=== PATIENT | female | born 1975 | race Caucasian/White ===

== ENCOUNTER 2020-07-25 14:57 | Outpatient (REF) | payer OTHER, SELFPAY ==
--- NOTE | 2020-07-25 | MM_ITS ---
EXAMINATION: MM DIAGNOSTIC DIGITAL BREAST TOMOSYNTHESIS, BILATERAL CLINICAL INFORMATION: Short interval six-month follow-up probable bilateral benign fibronodular and fibrocystic changes initially noted at baseline exam. The lifetime risk of breast cancer based on the Tyrer-Cuzick Model is 11%. COMPARISON: Mammography: 01/21/2020 (baseline, BI-RADS 0), bilateral targeted breast ultrasound 01/25/2020 TECHNIQUE: Digital breast tomosynthesis is performed in both the craniocaudal and mediolateral oblique views along with computer-aided detection (CAD). Synthesized 2D images are generated from the tomosynthesis. FINDINGS: There are scattered areas of fibroglandular density (ACR BI-RADS breast composition Category b). Breast tissue composition borders on heterogeneously dense. There is multinodular parenchymal pattern with scattered nodular asymmetries similar to prior baseline exam. There is no developing density or architectural abnormality or interval suspicious change. No abnormal calcifications. Bilateral breasts will be reassessed again at time of annual bilateral mammography, due in 6 months. Results are provided to the patient at time of visit by the technologist. MM/MM tomosynthesis diagnostic BI IMPRESSION: No significant changes from baseline exam. ASSESSMENT: BI-RADS 3: Probably Benign RECOMMENDATION: Diagnostic mammography at time of annual bilateral exam, due in 6 months. This patient's information was entered into a reminder system with a target due date for their next mammogram.
== END 2020-07-25 14:58 | disposition home or self-care (01) ==
LOC: HO.MAMMO 14:57
PROVIDERS: PCP Internal Medicine; Visit Provider Internal Medicine
DX: R92.2 Inconclusive mammogram (principal)
CPT/HCPCS: 77062; 77066

== ENCOUNTER 2020-08-04 11:27 | Outpatient (REF) | payer OTHER, SELFPAY | END 2020-08-04 11:28 | disposition home or self-care (01) | LOC: HO.LAB 11:27 | PROVIDERS: Visit Provider Nurse Practitioner Family | DX: R11.0 Nausea (principal); Z20.822 Contact with and (suspected) exposure to COVID-19 | CPT/HCPCS: 36415; U0003; U0005 ==

== ENCOUNTER 2020-08-11 15:01 | Outpatient (REF) | payer OTHER, SELFPAY ==
[2020-08-11 16:20] LABS: MANUAL DIFF FLAG NO
[2020-08-11 16:27] LABS: Basophils Absolute Auto 0.1 X10*3/uL (0.0-0.2); Basophils Percent Auto 0.9 % (0-2); Eosinophils Percent Auto 0.2 % (0-4); Hematocrit 42.8 % (37-47); Hemoglobin 14.1 g/dl (12.0-16.0); Imm Gran Abs Auto 0.03 X10*3/uL (0.00-0.03); Imm Gran Pct Auto 0.4 % (0.0-0.4); Lymphocytes Absolute Auto 2.1 X10*3/uL (1.2-4.9); Lymphocytes Percent Auto 24.3 % (20-40); Mean Corpuscular HGB Conc 32.9 g/dl (31.0-35.0); Mean Corpuscular Hemoglobin 29.6 pg (27.0-33.0); Mean Corpuscular Volume 89.7 fL (80-98); Mean Platelet Volume 9.8 fL (9.4-12.3); Monocytes Absolute Auto 0.4 X10*3/uL (0.1-1.2); Monocytes Percent Auto 4.2 % (2-11); Platelet Count 335 X10*3/uL (160-400); Red Blood Count 4.77 X10*6/uL (4.20-5.50); White Blood Count 8.6 X10*3/uL (4.8-10.8)
[2020-08-11 16:45] LABS: Alanine Aminotransferase 19 U/L (0-31); Albumin Level 4.4 g/dL (3.5-5.0); Alkaline Phosphatase 58 U/L (39-117); Anion Gap 13 (12-20); Aspartate Amino Transferase 16 U/L (5-31); Bilirubin Total 0.2 mg/dL (0.0-1.0); Blood Urea Nitrogen 10 mg/dL (9-16); Carbon Dioxide 23 mmol/L (22-29); Chloride 107 mmol/L (96-108); Estimated Glomerular Filt Rate > 60; Glucose Random 104 mg/dL (60-115); Potassium 4.3 mmol/L (3.3-5.1); Sodium 139 mmol/L (135-145); Total Protein 7.2 g/dL (6.5-8.0)
== END 2020-08-11 15:02 | disposition home or self-care (01) ==
LOC: HO.HMGCLDS 15:01
PROVIDERS: PCP Internal Medicine; Visit Provider Nurse Practitioner Family
DX: R11.0 Nausea (principal)
CPT/HCPCS: 36415; 80053; 85025

== ENCOUNTER 2021-01-26 13:20 | Outpatient (REF) | payer OTHER, SELFPAY ==
--- NOTE | ~2021-01-26 | MM_ITS ---
EXAMINATION: MM DIAGNOSTIC DIGITAL BREAST TOMOSYNTHESIS, BILATERAL CLINICAL INFORMATION: Probable benign fibronodular and fibrocystic changes initially noted at baseline exam. Due for yearly. The lifetime risk of breast cancer based on the Tyrer-Cuzick Model is 11%. COMPARISON: Mammography: 07/25/2020, 01/21/2020 (baseline); bilateral diagnostic breast ultrasound 01/25/2020. TECHNIQUE: Digital breast tomosynthesis is performed in both the craniocaudal and mediolateral oblique views along with computer-aided detection (CAD). Synthesized 2D images are generated from the tomosynthesis. FINDINGS: There are scattered areas of fibroglandular density (ACR BI-RADS breast composition Category b). Parenchymal pattern is similar to prior studies. There are scattered bilateral round smooth nodules again seen, largest left 12:00 position corresponding to a simple cyst on targeted ultrasound. Other nodularity left breast is stable. Nodularity right breast is stable to decreased. Neither breast shows new dominant nodule or architectural abnormality or developing density. There are no abnormal calcifications. The axilla and skin contours are unremarkable. Results are provided to the patient at time of visit by the technologist. MM/MM tomosynthesis diagnostic BI IMPRESSION: There are no significant changes from prior exams. ASSESSMENT: BI-RADS 2: Benign RECOMMENDATION: Routine annual mammography screening. This patient's information was entered into a reminder system with a target due date for their next mammogram.
== END 2021-01-26 13:21 | disposition home or self-care (01) ==
LOC: HO.MAMMO 13:20
PROVIDERS: Visit Provider Internal Medicine
DX: R92.2 Inconclusive mammogram (principal)
CPT/HCPCS: 77062; 77066

== ENCOUNTER 2021-07-10 10:42 | Outpatient (REF) | payer OTHER, SELFPAY ==
[2021-07-10 12:19] LABS: Alanine Aminotransferase 27 U/L (0-31); Anion Gap 13 (12-20); Aspartate Amino Transferase 19 U/L (5-31); Blood Urea Nitrogen 14 mg/dL (9-16); Calcium 9.5 mg/dL (8.4-10.2); Carbon Dioxide 21 mmol/L (22-29); Chloride 109 mmol/L (96-108); Cholesterol 281 mg/dL; Estimated Glomerular Filt Rate > 60; Glucose Fasting 112 mg/dL (60-99); HDL Cholesterol 33 mg/dL; LDL Cholesterol Calculated 205 mg/dl; Potassium 3.9 mmol/L (3.3-5.1); Sodium 139 mmol/L (135-145); Triglycerides 215 mg/dL
== END 2021-07-10 10:43 | disposition home or self-care (01) ==
LOC: HO.HMGCLDS 10:42
PROVIDERS: PCP Internal Medicine; Visit Provider Internal Medicine
DX: Z00.01 Encounter for general adult medical examination with abnormal findings (principal); I10 Essential (primary) hypertension
CPT/HCPCS: 36415; 80048; 80061; 84450; 84460

== ENCOUNTER → 2021-09-26 15:02 | Outpatient (BNVA) | payer OTHER, SELFPAY | PROVIDERS: PCP Internal Medicine; Visit Provider Nurse Practitioner Family | DX: Z13.89 Encounter for screening for other disorder (principal) ==

== ENCOUNTER 2021-10-13 08:52 | Outpatient (REF) | payer OTHER, SELFPAY ==
[2021-10-13 11:43] LABS: Alanine Aminotransferase 35 U/L (0-31); Anion Gap 15 (12-20); Aspartate Amino Transferase 30 U/L (5-31); Blood Urea Nitrogen 9 mg/dL (9-16); Calcium 9.1 mg/dL (8.4-10.2); Carbon Dioxide 22 mmol/L (22-29); Chloride 105 mmol/L (96-108); Cholesterol 277 mg/dL; Estimated Glomerular Filt Rate > 60; Glucose Fasting 145 mg/dL (60-99); HDL Cholesterol 33 mg/dL; LDL Cholesterol Calculated 194 mg/dl; Potassium 3.7 mmol/L (3.3-5.1); Sodium 138 mmol/L (135-145); Triglycerides 253 mg/dL
[2021-10-13 11:49] LABS: TSH reflex Free T4 1.07 uIU/mL (0.32-4.0); Vitamin D 25-OH Total 11.1 ng/mL (>30)
== END 2021-10-13 08:53 | disposition home or self-care (01) ==
LOC: HO.HMGCLDS 08:52
PROVIDERS: Visit Provider Internal Medicine
DX: F51.04 Psychophysiologic insomnia (principal); R73.01 Impaired fasting glucose; E78.2 Mixed hyperlipidemia
CPT/HCPCS: 36415; 80048; 80061; 82306; 84443; 84450; 84460

== ENCOUNTER → 2021-11-22 08:51 | Outpatient (REF) | payer OTHER, SELFPAY | LOC: HO.SL 08:51 | PROVIDERS: PCP Internal Medicine; Visit Provider Nurse Practitioner Family | DX: G47.9 Sleep disorder, unspecified (principal); G47.19 Other hypersomnia; F51.04 Psychophysiologic insomnia; R06.83 Snoring | CPT/HCPCS: 95806 ==

== ENCOUNTER 2022-01-10 08:49 | Outpatient (REF) | payer OTHER, SELFPAY ==
[2022-01-10 11:39] LABS: Estimated Average Glucose 120 mg/dL; Hemoglobin A1c % 5.8 %
[2022-01-10 11:57] LABS: Alanine Aminotransferase 27 U/L (0-31); Anion Gap 13 (12-20); Aspartate Amino Transferase 22 U/L (5-31); Blood Urea Nitrogen 12 mg/dL (9-16); Calcium 8.6 mg/dL (8.4-10.2); Carbon Dioxide 23 mmol/L (22-29); Chloride 106 mmol/L (96-108); Cholesterol 157 mg/dL; Estimated Glomerular Filt Rate > 60; Glucose Fasting 111 mg/dL (60-99); HDL Cholesterol 31 mg/dL; LDL Cholesterol Calculated 99 mg/dl; Potassium 4.2 mmol/L (3.3-5.1); Sodium 138 mmol/L (135-145); Triglycerides 137 mg/dL
== END 2022-01-10 08:50 | disposition home or self-care (01) ==
LOC: HO.HMGCLDS 08:49
PROVIDERS: PCP Internal Medicine; Visit Provider Internal Medicine
DX: E78.2 Mixed hyperlipidemia (principal); R73.01 Impaired fasting glucose; E55.9 Vitamin D deficiency, unspecified
CPT/HCPCS: 36415; 80048; 80061; 82306; 83036; 84450; 84460

== ENCOUNTER 2022-05-26 08:47 | Outpatient (REF) | payer OTHER, SELFPAY ==
--- NOTE | ~2022-05-26 | MM_ITS ---
EXAMINATION: MM SCREENING DIGITAL BREAST TOMOSYNTHESIS, BILATERAL CLINICAL INFORMATION: Screening. Asymptomatic. The lifetime risk of breast cancer based on the Tyrer-Cuzick Model is 10%. COMPARISON: Mammography: 01/26/2021, 07/25/2020, 01/21/2020 (baseline); bilateral breast ultrasound 01/25/2020. TECHNIQUE: Digital breast tomosynthesis is performed in both the craniocaudal and mediolateral oblique views along with computer-aided detection (CAD). Synthesized 2D images are generated from the tomosynthesis. FINDINGS: There are scattered areas of fibroglandular density (ACR BI-RADS breast composition Category b). Breast tissue composition borders on heterogeneously dense. There is multinodular parenchymal pattern with scattered bilateral smooth nodules, largest left 12:00 position corresponding to a simple cyst on prior ultrasound. Other scattered bilateral nodularity are stable to decreased. There is no developing density or architectural abnormality. The axilla and skin contours are unremarkable. The left MLO view shows focal calcifications upper breast 4 cm from nipple, increased versus superimposed pseudocalcification from digital processing artifact. Patient will be recalled for additional imaging. MM/MM tomosynthesis screening BI IMPRESSION: Left: -Calcifications upper breast 4 cm from nipple on MLO view versus pseudocalcification from digital processing artifact. Right: -No significant changes from prior exams. ASSESSMENT: BI-RADS 0: Incomplete - Need Additional Imaging Evaluation RECOMMENDATION: 1. Additional views of the left breast (magnification ML, magnification CC central outer). 2. Radiology department staff will contact the patient for additional imaging. This patient's information was entered into a reminder system with a target due date for their next mammogram.
== END 2022-05-26 08:48 | disposition home or self-care (01) ==
LOC: HO.MAMMO 08:47
PROVIDERS: PCP Internal Medicine; Visit Provider Internal Medicine
DX: Z12.31 Encounter for screening mammogram for malignant neoplasm of breast (principal)
CPT/HCPCS: 77063; 77067

== ENCOUNTER 2022-06-01 13:52 | Outpatient (REF) | payer OTHER, SELFPAY ==
--- NOTE | ~2022-06-01 | US_ITS ---
EXAMINATION: US DIAGNOSTIC ULTRASOUND BREAST, LEFT MM DIAGNOSTIC BREAST, LEFT CLINICAL INFORMATION: Question mass with calcifications. COMPARISON: 05/26/2022 and studies dating back to 01/21/2020. TECHNIQUE: Digital breast tomosynthesis is performed in Spot magnification craniocaudal, mediolateral oblique, and 90 degree mediolateral views. Ultrasound of the breast is performed with real-time thomas scale imaging and color Doppler. FINDINGS: There are scattered areas of fibroglandular density (ACR BI-RADS breast composition Category b). About the superior aspect of the left breast approximately 4 cm from the nipple there is a persistent density with microcalcifications. The density is somewhat lobular. Targeted left breast ultrasound demonstrated a known cyst at the 11 o'clock position. No suspicious left breast mass was appreciated. Recommend stereotactic core biopsy of the left breast calcifications with associated density. The above was discussed with the patient at time of examination. Elinor at referring physician's office notified of above recommendation. US/US breast LT limited IMPRESSION: Left breast calcifications with associated density for which stereotactic core biopsy is recommended. No density or region of abnormal distal sound shadowing was appreciated with ultrasound. ASSESSMENT: BI-RADS 4: Suspicious RECOMMENDATION: Stereotactic core biopsy of the left breast. This patient's information was entered into a reminder system with a target due date for their next mammogram.
== END 2022-06-01 13:53 | disposition home or self-care (01) ==
LOC: HO.MAMMO 13:52
PROVIDERS: PCP Internal Medicine; Visit Provider Internal Medicine
DX: R92.1 Mammographic calcification found on diagnostic imaging of breast (principal)
CPT/HCPCS: 76642; 77065

== ENCOUNTER 2022-06-06 09:32 | Outpatient (REF) | payer OTHER, SELFPAY ==
--- NOTE | ~2022-06-06 | MM_ITS ---
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 COMPARISON: Mammography 05/26/2022, 06/01/2022, ultrasound left breast 06/01/2022. TECHNIQUE/PROCEDURE: Informed consent was obtained from the patient after discussion of the benefits, risks, and alternatives to biopsy today. Patient appeared to understand. Gave opportunity for questions. Patient signed consent form. BIOPSY TABLE: [employer] Affirm Prone Biopsy System. LESION: Focal duct ectasia with associated faint calcification anterior left breast. LOCAL ANESTHESIA: 10 mL carbonated 1% lidocaine; 10 mL 1% lidocaine with epinephrine. DERMATOTOMY: Single skin mariah dermatotomy performed. NEEDLE: Referly Eviva 9-gauge vacuum assisted core biopsy device. APPROACH: Medial Lateral. TARGETING: Combination of digital breast tomosynthesis and stereotactic digital mammography used for targeting. CORES: 7. CLIP: Referly SecurMark Cylinder-shaped marker. SPECIMEN RADIOGRAPH: Specimen radiograph is taken in separate room using digital mammography. The index calcifications are in the excised cores. There are at least 8 calcifications in the cores. POST PROCEDURE DIGITAL MAMMOGRAM, LEFT: The post biopsy mammogram is performed in separate room using separate digital mammography equipment from the biopsy procedure. CC and ML views are obtained. There are scattered areas of fibroglandular density (breast composition category: b). The clip marker is deployed, possibly with 0.8 cm medial accordion effect on CC view. The calcifications are decreased at the biopsy site. No gross hematoma. The patient tolerated the procedure well. No immediate complications. Home instructions reviewed with the patient. Final pathology results are pending. MM/MM stereotactic biopsy LT IMPRESSION: 1. Digital tomosynthesis-guided core biopsy left breast with clip placement. 2. Specimen radiograph taken and post procedure mammogram. 3. Final pathology results pending. An addendum report will be issued.
[2022-06-06] MEDS: Lidocaine HCl 1 % 20 ML VIAL 10 ML SUBCUT (11:06)
[2022-06-06] MEDS: Sodium Bicarbonate 8.4% 50 MEQ/50 ML VIAL SUBCUT (11:08)
[2022-06-06] MEDS: Lidocaine HCl 1% PF/Epi 1:200,000 30 ML VIAL 10 ML SUBCUT (11:10)
== END 2022-06-06 09:33 | disposition home or self-care (01) ==
LOC: HO.MAMMO 09:32
PROVIDERS: PCP Internal Medicine; Visit Provider Surgery
DX: R92.1 Mammographic calcification found on diagnostic imaging of breast (principal)
CPT/HCPCS: 19081; 88305; A4648

== ENCOUNTER → 2022-10-23 13:57 | Outpatient (BNVA) | payer OTHER, SELFPAY | PROVIDERS: PCP Internal Medicine; Visit Provider Nurse Practitioner Family | DX: F51.04 Psychophysiologic insomnia (principal); G47.10 Hypersomnia, unspecified; R73.03 Prediabetes; E78.2 Mixed hyperlipidemia; E55.9 Vitamin D deficiency, unspecified | CPT/HCPCS: 99212 ==

== ENCOUNTER → 2023-02-07 11:00 | Outpatient (BNV) | payer OTHER, SELFPAY | PROVIDERS: PCP Internal Medicine; Visit Provider Radiology Diagnostic Radiology | DX: R92.1 Mammographic calcification found on diagnostic imaging of breast (principal) | CPT/HCPCS: 77061; 77065 ==

== ENCOUNTER 2023-02-07 11:02 | Outpatient (REF) | payer OTHER, SELFPAY ==
--- NOTE | ~2023-02-07 | MM_ITS ---
EXAMINATION: MM DIAGNOSTIC DIGITAL BREAST TOMOSYNTHESIS, LEFT CLINICAL INFORMATION: Follow-up left breast stereotactic biopsy for calcifications with benign pathology. The lifetime risk of breast cancer based on the Tyrer-Cuzick Model is 10%. COMPARISON: Mammography: Mammography dated 06/01/2022, 05/26/2022, and dating back to 07/25/2020. Stereotactic biopsy dated 06/06/2022, yielding benign pathology of fibrocystic change with apocrine metaplasia.. TECHNIQUE: Digital breast tomosynthesis is performed in both the craniocaudal and mediolateral oblique views along with computer-aided detection (CAD). Synthesized 2D images are generated from the tomosynthesis. In addition, left spot magnification CC and ML views were performed. A 3-D left mediolateral view was also performed. FINDINGS: There are scattered areas of fibroglandular density (ACR BI-RADS breast composition Category b). There is a cylinder-shaped biopsy clip present in the anterior, medial left breast, with no definite residual calcifications remaining at the biopsy site. Of note, the biopsy clip appears to have migrated anteromedially from the biopsy site by approximately 1.6 cm. There is a stable oval circumscribed cyst in the 12:00 location of the left breast, as well as several stable smaller low-density circumscribed nodules, also consistent with cysts. There are no new suspicious abnormalities. There are no new calcifications. Results are provided to the patient at time of visit by the technologist. MM/MM tomosynthesis diagnostic LT IMPRESSION: Benign findings left breast related to prior stereotactic biopsy with no residual calcifications present. No new suspicious abnormalities. Please note anteromedial clip migration. Recommend the patient return to routine annual screening mammography to include both breasts. ASSESSMENT: BI-RADS BI-RADS 2 - Benign Findings RECOMMENDATION: 1 year F/U This patient's information was entered into a reminder system with a target due date for their next mammogram.
== END 2023-02-07 11:03 | disposition home or self-care (01) ==
LOC: HO.MAMMO 11:02
PROVIDERS: PCP Internal Medicine; Visit Provider Internal Medicine
DX: R92.1 Mammographic calcification found on diagnostic imaging of breast (principal)
CPT/HCPCS: 77061; 77065

== ENCOUNTER 2023-04-16 09:48 | Outpatient (REF) | payer OTHER, SELFPAY ==
[2023-04-16 11:56] LABS: Estimated Average Glucose 157 mg/dL; Hemoglobin A1c % 7.1 % (<6.0)
[2023-04-16 12:42] LABS: Alanine Aminotransferase 76 U/L (0-31); Aspartate Amino Transferase 74 U/L (5-31); Cholesterol 216 mg/dL (<200); Glucose Fasting 193 mg/dL (60-99); HDL Cholesterol 32 mg/dL (>40); LDL Cholesterol Calculated 108 mg/dL (<100); Triglycerides 382 mg/dL (<150)
[2023-04-16 12:44] LABS: Vitamin D 25-OH Total 20.5 ng/mL (>30)
== END 2023-04-16 09:49 | disposition home or self-care (01) ==
LOC: HO.HMGCLDS 09:48
PROVIDERS: PCP Internal Medicine; Visit Provider Internal Medicine
DX: F51.04 Psychophysiologic insomnia (principal); E78.2 Mixed hyperlipidemia; R73.01 Impaired fasting glucose; Z86.39 Personal history of other endocrine, nutritional and metabolic disease
CPT/HCPCS: 36415; 80061; 82306; 82947; 83036; 84450; 84460

== ENCOUNTER 2023-04-19 08:22 | Outpatient (AMB) | payer OTHER, SELFPAY ==
[2023-04-19 08:29] VITALS: BP 124/80; PULSE 92; O2SAT 95; BMI 31.5
--- NOTE | 2023-04-19 08:29 | A.OFFPC_ITS ---
Vital Signs 04/19/23 08:29 Height 5 ft 6 in Weight 195 lb 4 oz BMI 31.5 BP 124/80 Blood Pressure Location Rt brachial Position Sitting Pulse 92 Pulse Source Pulse Oximeter Pulse Oximetry (%) 95 Oxygen Delivery Method Room Air Intake Visit Reasons: Physical Intake Note: pt is here for her PE Is last menstrual period known: Yes Last menstrual period: 04/05/23 Allergies penicillin V Allergy (Unknown, Verified 04/26/23 05:07) hives Medication List - Last Reconciled 04/26/23 by Aimee Rudd MD alprazolam 0.5 mg PO BID PRN amitriptyline 50 mg PO BEDTIME 30 days cholecalciferol (vitamin D3) 1,250 mcg PO QWEEK 3 months duloxetine 120 mg PO DAILY flash glucose scanning reader ([employer] Leticia 2 [place]) As directed flash glucose sensor (FreeStyle Leticia 2 Sensor kit) Use to test blood sugar 4 times per day metformin ER 500 mg PO QPM rosuvastatin 10 mg PO DAILY zolpidem 10 mg PO BEDTIME PRN Tobacco use date assessed: 04/19/23 Dental Screening Dental Screen Date: 04/19/23 Did you have a dental visit in the last 12 months?: Yes Did you have a dental problem in the last 6 months where you did not have access to dental care?: No Was dental information given to patient?: Patient has dentist HPI Physical HPI Details 47-year-old lady here today for her phys ical exam. She has mixed dyslipidemia, chronic insomnia, impaired fasting glucose and history of vitamin- D deficiency. She had recent fasting labs done which showed fasting glucose in the diabetic range, now with a hemoglobin in A1c at 7.1%, and fasting lipid panel showing elevated LDL cholesterol at 108 mg/dL/ triglycerides 382 / total cholesterol 216 mg per dL, with HDL at 32 mg per dL and low vitamin-D level Currently sees a psychiatrist, Gurdeep Chi for treatment of for mixed anxiety depression, currently on duloxetine and alprazolam as needed. Takes zolpidem for chronic insomnia Up-to-date with her screening mammogram [facility] Medical History (Updated 04/19/23 @ 09:35 by Aimee Rudd MD) Diabetes mellitus with hyperglycemia History of vitamin D deficiency Breast calcification, left Vitamin D deficiency Chronic insomnia Mixed dyslipidemia Surgical History Hx of tonsillectomy History of bunionectomy Family History Father Mental health disorder Cancer Social History Household Members: None Housing: Apartment Alcohol intake: current Alcohol intake frequency: holidays/special occasions only Patient Tobacco Use Status: Current everyday Tobacco user Cigarette Packs Per Day: 0.5 Cigarettes Per Day: 10 Years Smoked: 30 +/- e-Cigarette/Vaping Use: Never Used service: No Current occupational status: employed Cognitive needs: No Hearing needs: No Vision needs: No Female Reproductive History Menstrual Date of last menstrual period: 04/05/23 Questionnaire PHQ-9 Over the last 2 weeks, how often have you been bothered by any of the following problems? 1. Little interest or pleasure in doing things: several days 2. Feeling down, depressed, or hopeless: more than half the days 3. Trouble falling or staying asleep, or sleeping too much: several days 4. Feeling tired or having little energy: several days 5. Poor appetite or overeating: nearly every day 6. Feeling bad about yourself - or that you are a failure or have let yourself or your family down: nearly every day 7. Trouble concentrating on things, such as reading the newspaper or watching television: nearly every day 8. Moving or speaking so slowly that other people could have noticed. Or the opposite - being so fidgety or restless that you have been moving around a lot more than usual: nearly every day 9. Thoughts that you would be better off or of hurting yourself in some way: nearly every day Total score: 20 Depression Screening Interpretation: Positive Depression Screening Follow-up: Existing condition, In treatment ( followed by psychiatry) and Community Mental Health Worker F/U Depression Screening Done: Yes 15003 - PHQ-9 Billing: Yes Source: Developed by Drs. Oscar Parrish, Ivis Redd, Francisco J Stuart and colleagues, with an educational kira from [employer]. Thrive Questionnaire Date Thrive assessed: 04/19/23 I am a: Patient What is your living situation today?: I have a steady place to live Within the past 12 months, did the food you bought not last and you didn't have the money to get more?: Sometimes True Within the past 12 months, did you worry whether your food would run out before you got money to buy more?: Never true Do you have trouble paying for medicines?: No Do you have trouble getting transportation to medical appointments?: No Do you have trouble paying your heating and electricity bill?: No Do you have trouble taking care of your child, family member or friend?: No Do you have trouble with day-to-day activities such as bathing, preparing meals, shopping, managing finances, etc.?: No Are you currently unemployed and looking for a job?: No Are you interested in more education?: No AUDIT C Alcohol Use Questionnaire (AUDIT-C) 1. How often do you have a drink containing alcohol?: Monthly or less 2. How many drinks containing alcohol do you have on a typical day when you are drinking?: 1 or 2 3. How often do you have six or more drinks on one occasion?: Never Total Score: 1 ANANTH-7 AMB Questionnaire ANANTH-7 Date ANANTH - 7 assessed: 04/19/23 Feeling nervous, anxious, or on edge: 2 = More than half the days Not being able to stop or control worryin = More than half the days Worrying too much about different things: 2 = More than half the days Trouble relaxin = More than half the days Being so restless that it is hard to sit still: 1 = Several days Becoming easily annoyed or irritable: 0 = Not at all Feeling afraid as if something awful might happen: 0 = Not at all Total ANANTH-7 score (0-4 normal; 5-9 mild; 10-14 moderate; 15-21 severe): 9 Source: Developed by Drs. Oscar Parrish, Ivis Redd, Francisco J Stuart and colleagues, with an educational kira from [facility] [facility]. ANANTH-7 Assessment Billing ANANTH-7 Assessment Tool: ANANTH-7 Assessment 37517 Review of Systems Const Denies body aches, Reports difficulty sleeping, Denies fever(s), Denies headache(s), Reports malaise, Denies snoring and Reports weight loss Eyes Reports no additional complaints ENT Denies dysphagia, Denies headache(s) and Denies disequilibrium Card Denies chest pain, Denies chest pain with activity, Denies irregular heart rhythm, Denies lightheadedness and Denies dyspnea Resp Denies cough, Denies dyspnea, Denies snoring and Denies wheezing GI Denies abdominal pain, Denies change in bowel habits, Denies dysphagia and Denies heartburn Reports no additional complaints Musc Reports no additional complaints Skin/Breast Denies breast swelling, Denies breast skin changes, Denies breast pain, Denies breast mass and Denies rash Neuro Denies headache(s) and Denies disequilibrium Psych Reports as per HPI (Currently followed by Gurdeep Chi) Andre/Lymph Reports no additional complaints Aller/Immun Denies wheezing Physical exam (Primary Care) Vital Signs: Last Vital Signs Pulse 92 04/19/23 08:29 BP 124/80 04/19/23 08:29 Pulse Ox 95 04/19/23 08:29 Oxygen Delivery Method Room Air 04/19/23 08:29 BMI result Body Mass Index 31.5 BMI Assessment/Plan discussion: High BMI High, discussed plan: lifestyle, weight reduction, dietary and physical activity Tobacco/Smoking Status: Tobacco use Status Tobacco use date assessed 04/19/23 04/19/23 08:32 Patient Tobacco Use Status Current everyday Tobacco 04/19/23 08:31 e-Cigarette/Vaping Use Never Used 04/19/23 08:31 PHQ-9: PHQ-9 Score PHQ-9: Total score 21 04/19/23 14:57 Depression Screening Interpretation: Positive Depression Screening Follow-up: Existing condition, In treatment ( followed by psychiatry) and Community Mental Health Worker F/U Thrive Assessment: Date of Thrive Assessment Date Thrive assessed 04/19/23 04/19/23 08:35 Const Other: Alert oriented x3 no acute cardiorespiratory distress noted ambulatory with normal gait Nutritional Appearance: obese Orientation/consciousness: patient oriented x3 HENMT Other: Normocephalic atraumatic, Ears: hearing grossly normal bilaterally, external ears normal, TM's normal bilaterally and EAC's normal Face and sinus: Yes sinuses nontender and Yes face symmetric Mouth: Normal oral and palatal mucosa present and moist mucous membranes Eyes General: appearance normal, both eyes and all related structures Neck Other: Supple, no lymphadenopathy per, thyroid gland nonpalpable Neck: Yes no meningeal signs Chest Breast/axilla palpation: normal palpation of the breasts Resp Auscultation: clear to auscultation bilaterally Cardio Other: S1-S2 present regular rate and rhythm GI Other: Normal bowel sounds, soft, nontender, no mass palpated Back/Spine/Pelvis Back: No back tenderness Skin General skin exam: no rashes or lesions noted Neuro General: patient oriented x3, gait normal, tone normal, moves all extremities, Normal light touch and pain sensation, no meningeal signs, no focal motor deficits and CN's II-XI intact bilaterally Extrem General: Yes full ROM, Yes no joint enlargement, Yes no pedal edema, Yes no calf tenderness and Yes normal gait Psych Appearance: grossly normal Mental Status: mental status grossly normal Speech and movement: Normal speech and movement present Affect: normal affect Attitude: cooperative Thought process: Normal thought process present Results Reviewed Results Reviewed: RUN: 04/19/2304 PAGE 1 [facility] [address] [place] [id number] Immigration Specialist: Ulysses Jiménez M.D. Specimen Inquiry Name: Petra Rodriguez Age/Sex: 47/F : 1975 Unit#: [id number] Attend Dr: Aimee Rudd MD Re04/16/23 Status: DEP REF Location: [facility] Disch: SPEC : [id number] [place]: 04/16/23 STATUS: COMP REQ : [id number] RECD: 04/16/[address]: Aimee Rudd MD COMP: 04/16/234 ENTERED: 04/16/[address]: ORDERED: Glu Fasting, AST, ALT, Lipid Panel, Vitamin D 25-OH Test Result Flag Reference Site FBS 193 H 60-99 mg/dL A fasting glucose of 126 mg/dl or greater on more than one occasion is considered diagnostic of diabetes. AST (GOT) 74 H 5-31 U/L ALT (GPT) 76 H 0-31 U/L Triglyceride 382 H <150 mg/dL Desirable Triglyceride: less than 150 mg/dL Borderline High Triglyceride 150-199 mg/dL High Triglyceride: 200-499 mg/dL Very High Triglyceride: greater than or equal to 5OO mg/dL Cholesterol 216 H <200 mg/dL Desirable Cholesterol: less than 200 mg/dL Borderline High Cholesterol: 200-239 mg/dL High Cholesterol: greater than 239 mg/dL LDL Calculated 108 H <100 mg/dL Desirable LDL: less than 100 mg/dL Near Optimal/Above Optimal LDL: 110-129 mg/dL Borderline High LDL: 130-159 mg/dL High LDL: 160-189 mg/dL Very High LDL: greater than or equal to 190 mg/dL HDL 32 L >40 mg/dL Desirable HDL: greater than 40 mg/dL Note: This HDL assay may give artificially low results in patients with liver disease. Vit D 25-OH Tot 20.5 >30 ng/mL Health Based Reference Values* < 20 ng/mL Deficient 20-30 ng/mL Insufficient > 30 ng/mL Sufficient Laboratory Tests 04/16/23 10:04 Estimat Average Glucose 157 Hemoglobin A1c % 7.1 H Assessment and Plan Assessment & Plan (1) Annual visit for general adult medical examination with abnormal findings: Code(s): Z00.01 - Encounter for general adult medical examination with abnormal findings Plan: Recent fasting labs reviewed with patient. Continue with regular dental visit every 6 months and referred for diabetes eye screening to be done yearly. Started on vitamin-D 3 supplements high-dose, encouraged to exercise regularly specially important to do it with weights. Instructed to do self-breast exam, and currently up-to-date with her yearly mammogram. Referred to [facility] for routine cervical cancer screening and pelvic exam . Cologuard test ordered for colon cancer screening. Advised to get her yearly flu vaccine, need to get pneumonia vaccine due to current diagnosis of diabetes mellitus, and advised to get current COVID booster, but patient declined vaccinations (2) Cervical cancer screening: Code(s): Z12.4 - Encounter for screening for malignant neoplasm of cervix Plan: Referred to [facility] for her routine Pap and pelvic exam, overdue (3) Diabetes mellitus with hyperglycemia: Code(s): E11.65 - Type 2 diabetes mellitus with hyperglycemia Plan: Discuss recent lab results with patient, will start on metformin ER 500 mg per tablet to take with supper. Referred to parent educator for help with diet and diabetic teaching. Referred to ophthalmology for diabetes retinopathy screening. (4) Screening for diabetic retinopathy: Code(s): Z13.5 - Encounter for screening for eye and ear disorders Plan: Referred to ophthalmology for yearly diabetes retinopathy screening (5) History of vitamin D deficiency: Code(s): Z86.39 - Personal history of other endocrine, nutritional and metabolic disease Plan: Prescription sent for cholecalciferol 02997 mcg per capsule to take once a week for the next 3 months. (6) Mixed dyslipidemia: Code(s): E78.2 - Mixed hyperlipidemia Plan: Reviewed recent fasting lipid profile with patient with LDL cholesterol elevated, goal is less than 100 mg/dL . Increased dose of rosuvastatin to 10 mg once a day , in addition to adherence to low-cholesterol diet and regular exercise, at least 30 minutes 3 to 4 times a week. Advised patient to make healthy food choices, eat more fruits, vegetables, whole grains, wild caught fish and low-fat dairy. Limit amount of meat and fried or fatty food products, as well as processed foods and fast foods. Follow-up scheduled with repeat fasting lipid panel in 3 months. (7) Chronic insomnia: Code(s): F51.04 - Psychophysiologic insomnia Plan: Sleep study done showed no evidence of obstructive sleep apnea. Continue on zolpidem (8) Abnormal finding on EKG: Code(s): R94.31 - Abnormal electrocardiogram [ECG] [EKG] Plan: EKG done showed presence of normal sinus rhythm with fusion complexes, left axis deviation and? Inferior infarct, age undetermined. Referred to cardiology for further evaluation management Orders: Orders Lipid Panel 3 Months E11.65 - Type 2 diabetes mellitus with hyperglycemia, E78.2 - Mixed hyperlipidemia, F51.04 - Psychophysiologic insomnia, Z86.39 - Personal history of other endocrine, nutritional and metabolic disease Aspartate Amino Transferase 3 Months E11.65 - Type 2 diabetes mellitus with hyperglycemia, E78.2 - Mixed hyperlipidemia, F51.04 - Psychophysiologic insomnia, Z86.39 - Personal history of other endocrine, nutritional and metabolic disease Basic Metabolic Panel Fasting 3 Months E11.65 - Type 2 diabetes mellitus with hyperglycemia, E78.2 - Mixed hyperlipidemia, F51.04 - Psychophysiologic insomnia, Z86.39 - Personal history of other endocrine, nutritional and metabolic disease AMB EKG-In Office 04/19/23 E11.65 - Type 2 diabetes mellitus with hyperglycemia, E78.2 - Mixed hyperlipidemia, Z00.01 - Encounter for general adult medical examination with abnormal findings, Z13.6 - Encounter for screening for cardiovascular disorders Microalbumin, Random (w Creat) 3 Months E11.65 - Type 2 diabetes mellitus with hyperglycemia, E78.2 - Mixed hyperlipidemia, F51.04 - Psychophysiologic insomnia, Z86.39 - Personal history of other endocrine, nutritional and metabolic disease Alanine Aminotransferase 3 Months E11.65 - Type 2 diabetes mellitus with hyperglycemia, E78.2 - Mixed hyperlipidemia, F51.04 - Psychophysiologic insom jass, Z86.39 - Personal history of other endocrine, nutritional and metabolic disease Hemoglobin A1c 3 Months E11.65 - Type 2 diabetes mellitus with hyperglycemia, E78.2 - Mixed hyperlipidemia, F51.04 - Psychophysiologic insomnia, Z86.39 - Personal history of other endocrine, nutritional and metabolic disease Vitamin D 25-OH Total 3 Months E11.65 - Type 2 diabetes mellitus with hyperglycemia, E78.2 - Mixed hyperlipidemia, F51.04 - Psychophysiologic insomnia, Z86.39 - Personal history of other endocrine, nutritional and metabolic disease Referrals Ophthalmology Referral E11.65 - Type 2 diabetes mellitus with hyperglycemia, Z13.5 - Encounter for screening for eye and ear disorders Cardiology Referral E11.65 - Type 2 diabetes mellitus with hyperglycemia, E78.2 - Mixed hyperlipidemia, R94.31 - Abnormal electrocardiogram [ECG] [EKG] [facility] Referral Z12.4 - Encounter for screening for malignant neoplasm of cervix Cologuard Test Z12.11 - Encounter for screening for malignant neoplasm of colon, Z12.12 - Encounter for screening for malignant neoplasm of rectum Medications: New metformin ER 500 mg PO QPM 30 tabs 4RF cholecalciferol (vitamin D3) 1,250 mcg PO QWEEK 3 months 13 caps 0RF Z86.39 - Personal history of other endocrine, nutritional and metabolic disease Changed From rosuvastatin 5 mg PO DAILY 90 tabs 0RF To rosuvastatin 10 mg PO DAILY 90 tabs 1RF Coding Level of Care Code Est Pt Prev Care 40-64y(43579) Diagnoses Annual visit for general adult medical examination with abnormal findings Z00.01 Cervical cancer screening Z12.4 Diabetes mellitus with hyperglycemia E11.65 Screening for diabetic retinopathy Z13.5 History of vitamin D deficiency Z86.39 Mixed dyslipidemia E78.2 Chronic insomnia F51.04 Abnormal finding on EKG R94.31 Additional Codes ANANTH-7 Assessment Billing - ANANTH-7 Assessment Tool: ANANTH-7 Assessment 39182 ([id number])
== END 2023-04-19 10:00 | disposition home or self-care (01) ==
PROVIDERS: PCP Internal Medicine; Visit Provider Internal Medicine
DX: Z00.01 Encounter for general adult medical examination with abnormal findings (principal); Z12.4 Encounter for screening for malignant neoplasm of cervix; E11.65 Type 2 diabetes mellitus with hyperglycemia; Z13.5 Encounter for screening for eye and ear disorders; Z86.39 Personal history of other endocrine, nutritional and metabolic disease; E78.2 Mixed hyperlipidemia; F51.04 Psychophysiologic insomnia; R94.31 Abnormal electrocardiogram [ECG] [EKG]
CPT/HCPCS: 93000; 96127; 99213; 99396

== ENCOUNTER 2023-04-25 09:27 | Outpatient (AMB) | payer OTHER, SELFPAY ==
--- NOTE | 2023-04-25 09:31 | A.OFFVIS_ITS ---
<Statement entered by Aimee Rudd MD - 11/04/24 15:24> This note has been administratively?closed. Intake Vital Signs 04/25/23 09:36 Height 5 ft 6 in Weight 192 lb BMI 31.0 BP 130/90 H Blood Pressure Location Rt brachial Position Sitting Pulse 106 H Pulse Source Pulse Oximeter Pulse Oximetry (%) 97 Oxygen Delivery Method Room Air Intake Visit Reasons: 6m follow up Sleep disorder-Confirmed Intake Note: Patient presents for 6 month follow up. Patient states no issues or concerns today. Allergies penicillin V Allergy (Unknown, Verified 04/26/23 05:07) hives Medication List - Last Reconciled 04/26/23 by Aimee Rudd MD alprazolam 0.5 mg PO BID PRN amitriptyline 50 mg PO BEDTIME 30 days cholecalciferol (vitamin D3) 1,250 mcg PO QWEEK 3 months duloxetine 120 mg PO DAILY flash glucose scanning reader ([employer] Leticia 2 [place]) As directed flash glucose sensor (FreeStyle Leticia 2 Sensor kit) Use to test blood sugar 4 times per day metformin ER 500 mg PO QPM rosuvastatin 10 mg PO DAILY zolpidem 10 mg PO BEDTIME PRN HPI HPI Comments History of Present Illness Details 47-yr-old female presents for f/u visit. Pt continues to have sleep difficulties. She is still prone to not being able to sleep well during the week. During the weekend, she will sleep almost 16 hours. She may not sleep as long on the weekend if she has to get up early to do something. She notes that is she has slept all day on Saturday, it is harder to sleep on Saturday night before her work week starts. She has not been following the [employer] CBTi techniques as much- notes that now that the program has completed, as she does not have external reinforcement. [facility] Medical History (Updated 04/19/23 @ 09:35 by Aimee Rudd MD) Diabetes mellitus with hyperglycemia History of vitamin D deficiency Breast calcification, left Vitamin D deficiency Chronic insomnia Mixed dyslipidemia Surgical History Hx of tonsillectomy History of bunionectomy Family History Father Mental health disorder Cancer Social History Household Members: None Housing: Apartment Alcohol intake: current Alcohol intake frequency: holidays/special occasions only Patient Tobacco Use Status: Current everyday Tobacco user Cigarette Packs Per Day: 0.5 Cigarettes Per Day: 10 Years Smoked: 30 +/- e-Cigarette/Vaping Use: Never Used service: No Current occupational status: employed Cognitive needs: No Hearing needs: No Vision needs: No Review of Systems Const All systems reviewed & are unremarkable except as noted in HPI and below Physical Exam Vital Signs: Last Vital Signs Pulse 106 H 04/25/23 09:36 BP 130/90 H 04/25/23 09:36 Pulse Ox 97 04/25/23 09:36 Oxygen Delivery Method Room Air 04/25/23 09:36 BMI result Body Mass Index 31.0 Const General: cooperative and no acute distress Orientation/consciousness: patient oriented x3 Resp Effort & Inspection: normal respiratory effort and able to speak in complete sentences Neuro General: patient oriented x3 Cognition (Neuro): normal cognition Psych Appearance: grossly normal Affect: normal affect Attitude: cooperative Thought process: Normal thought process present Assessment & Plan Assessment & Plan (1) Chronic insomnia: Code(s): F51.04 - Psychophysiologic insomnia (2) Sleep disorder: Comment: Snoring, fragmented sleep, excessive daytime sleepiness Code(s): G47.9 - Sleep disorder, unspecified (3) Hypersomnia: Code(s): G47.10 - Hypersomnia, unspecified Plan Continue Ambien 10mg qhs. Continue Amitriptyline 50mg qhs. Will refer pt to a locoal psychologist w/ speciality in CBTi. ? Patient has previously failed Ramelteon, Lunesta, fluoxetine 10 mg, bupropion XL 150 mg (felt sick, anxiety, confusion), lorazepam 1 mg (stopped working), doxepin, quetiapine, Belsomra (sleep paralysis), escitalopram 5-15 mg, sertraline 50-150 mg (increased anxiety), venlafaxine 37.5 mg, clonazepam, Ramelteon. ? Future considerations: repeating MSLT off of all anti-depressant medications. ? f/u in 6 months or sooner prn Orders: Referrals Psychology Referral F51.04 - Psychophysiologic insomnia, G47.9 - Sleep disorder, unspecified, G47.10 - Hypersomnia, unspecified Coding Level of Care Code Est Pt Level 4 (99948) Diagnoses Chronic insomnia F51.04 Sleep disorder G47.9 Hypersomnia G47.10
[2023-04-25 09:36] VITALS: BP 130/90; PULSE 106; O2SAT 97; BMI 31.0
== END 2023-04-25 10:26 | disposition home or self-care (01) ==
PROVIDERS: Visit Provider Nurse Practitioner Family
DX: F51.04 Psychophysiologic insomnia (principal); G47.9 Sleep disorder, unspecified; G47.10 Hypersomnia, unspecified
CPT/HCPCS: 99499

== ENCOUNTER → 2023-04-25 09:27 | Outpatient (BNVA) | payer OTHER, SELFPAY | PROVIDERS: Visit Provider Nurse Practitioner Family ==

== ENCOUNTER 2023-06-01 08:51 | Outpatient (REF) | payer OTHER, SELFPAY ==
--- NOTE | ~2023-06-01 | MM_ITS ---
EXAMINATION: MM SCREENING DIGITAL BREAST TOMOSYNTHESIS, BILATERAL CLINICAL INFORMATION: Screening. Asymptomatic. COMPARISON: Mammography: This study is compared with prior exams dating back to 2019. TECHNIQUE: Digital breast tomosynthesis is performed in both the craniocaudal and mediolateral oblique views along with computer-aided detection (CAD). Synthesized 2D images are generated from the tomosynthesis. FINDINGS: There are scattered areas of fibroglandular density (ACR BI-RADS breast composition Category b). There are no significant masses, abnormal calcifications, or other abnormalities. There is a benign, well-circumscribed focal asymmetry in the upper outer quadrant of the left breast show previous sonography from 2021 to represent a cyst. MM/MM tomosynthesis screening BI IMPRESSION: No mammographic evidence of malignancy. ASSESSMENT: BI-RADS BI-RADS 2 - Benign Findings RECOMMENDATION: Routine annual mammography screening. 1 year F/U This examination should not preclude the clinical evaluation of a suspicious palpable abnormality. This patient's information was entered into a reminder system with a target due date for their next mammogram.
== END 2023-06-01 08:52 | disposition home or self-care (01) ==
LOC: HO.MAMMO 08:51
PROVIDERS: PCP Internal Medicine; Visit Provider Internal Medicine
DX: Z12.31 Encounter for screening mammogram for malignant neoplasm of breast (principal)
CPT/HCPCS: 77063; 77067

== ENCOUNTER → 2023-06-01 09:00 | Outpatient (BNV) | payer OTHER, SELFPAY | PROVIDERS: PCP Internal Medicine; Visit Provider Radiology Diagnostic Radiology | DX: Z12.31 Encounter for screening mammogram for malignant neoplasm of breast (principal) | CPT/HCPCS: 77063; 77067 ==

== ENCOUNTER 2023-07-10 12:40 | Outpatient (REF) | payer OTHER, SELFPAY ==
[2023-07-10 16:26] LABS: Estimated Average Glucose 226 mg/dL; Hemoglobin A1c % 9.5 % (<6.0)
[2023-07-10 16:37] LABS: Alanine Aminotransferase 24 U/L (0-31); Anion Gap 14 (12-20); Aspartate Amino Transferase 34 U/L (5-31); Blood Urea Nitrogen 11 mg/dL (9-16); Calcium 9.3 mg/dL (8.4-10.2); Carbon Dioxide 24 mmol/L (22-29); Chloride 105 mmol/L (96-108); Cholesterol 205 mg/dL (<200); Estimated Glomerular Filt Rate > 60; Glucose Fasting 167 mg/dL (60-99); HDL Cholesterol 32 mg/dL (>40); LDL Cholesterol Calculated 108 mg/dL (<100); Potassium 3.8 mmol/L (3.3-5.1); Sodium 139 mmol/L (135-145); Triglycerides 325 mg/dL (<150)
[2023-07-10 16:45] LABS: Vitamin D 25-OH Total 63.7 ng/mL (>30)
[2023-07-10 17:27] LABS: Creatinine Urine 74.26 mg/dL; Microalbum/Creatinine Ratio Ur 17.5 ug/mg cr (<30)
== END 2023-07-10 12:41 | disposition home or self-care (01) ==
LOC: HO.HMGCLDS 12:40
PROVIDERS: PCP Internal Medicine; Visit Provider Internal Medicine
DX: E11.65 Type 2 diabetes mellitus with hyperglycemia (principal); E78.2 Mixed hyperlipidemia; F51.04 Psychophysiologic insomnia; Z86.39 Personal history of other endocrine, nutritional and metabolic disease
CPT/HCPCS: 36415; 80048; 80061; 82043; 82306; 82570; 83036; 84450; 84460

== ENCOUNTER 2023-07-11 15:01 | Outpatient (AMB) | payer OTHER, SELFPAY ==
--- NOTE | 2023-07-11 15:31 | A.OFFPC_ITS ---
Vital Signs 07/11/23 15:32 Height 5 ft 6 in Weight 193 lb BMI 31.1 BP 132/84 Blood Pressure Location Rt brachial Position Sitting Pulse 97 Pulse Source Pulse Oximeter Pulse Oximetry (%) 96 Oxygen Delivery Method Room Air Intake Visit Reasons: DM follow up Intake Note: pt is here for diabetes follow up Home Companion Required: No Accompanied by: Self / Same As Patient Allergies penicillin V Allergy (Unknown, Verified 07/11/23 15:59) hives Medication List - Last Reconciled 07/11/23 by Aimee Rudd MD alprazolam 0.5 mg PO BID PRN amitriptyline 50 mg PO BEDTIME 30 days benzonatate 200 mg PO TID PRN cholecalciferol (vitamin D3) 1,250 mcg PO QWEEK 3 months duloxetine 120 mg PO DAILY flash glucose scanning reader ([employer] Leticia 2 [place]) As directed flash glucose sensor ([employer] Leticia 2 Sensor kit) Use to test blood sugar 4 times per day metformin ER 750 mg PO DAILY ondansetron HCl 8 mg PO Q12H PRN rosuvastatin 10 mg PO DAILY semaglutide (Ozempic) 0.25 mg (0.368 mL) subcut QWEEK 30 days zolpidem 10 mg PO BEDTIME PRN Tobacco use date assessed: 04/19/23 [facility] DM follow up HPI Details Follow-up DM, has not really been compliant with taking her metformin, keeps forgetting and has not been compliant with follow-up her diet , until a month ago . She had her diabetes retinopathy screening done at [facility] in May 2023 which showed no evidence of retinopathy. Took her Cologuard test came back positive, denies any abdominal pain, does not see any blood in her stool, no melena. [facility] Medical History (Updated 07/11/23 @ 15:55 by Aimee Rudd MD) Positive colorectal cancer screening using Cologuard test Diabetes mellitus with hyperglycemia History of vitamin D deficiency Breast calcification, left Vitamin D deficiency Chronic insomnia Mixed dyslipidemia Surgical History Hx of tonsillectomy History of bunionectomy Family History Father Mental health disorder Cancer Social History Household Members: None Housing: Apartment Alcohol intake: current Alcohol intake frequency: holidays/special occasions only Patient Tobacco Use Status: Current everyday Tobacco user Cigarette Packs Per Day: 0.5 Cigarettes Per Day: 10 Years Smoked: 30 +/- e-Cigarette/Vaping Use: Never Used service: No Current occupational status: employed Cognitive needs: No Hearing needs: No Vision needs: No Questionnaire Thrive Questionnaire Date Thrive assessed: 04/19/23 ANANTH-7 AMB Questionnaire ANANTH-7 Date ANANTH - 7 assessed: 04/19/23 Source: Developed by Drs. Oscar Parrish, Ivis Redd, Francisco J Stuart and colleagues, with an educational kira from [employer]. Review of Systems Const Denies body aches, Reports difficulty sleeping, Denies fever(s), Denies headache(s), Reports malaise and Denies snoring Eyes Reports no additional complaints ENT Denies dysphagia, Denies headache(s) and Denies disequilibrium Card Denies chest pain, Denies chest pain with activity, Denies irregular heart rhythm, Denies lightheadedness and Denies dyspnea Resp Reports cough (Dry occasional), Denies dyspnea, Denies snoring and Denies wheezing GI Denies abdominal pain, Denies change in bowel habits, Denies dysphagia and Denies heartburn Reports no additional complaints Musc Reports no additional complaints Skin/Breast Denies breast skin changes, Denies breast pain, Denies breast mass and Denies rash Neuro Denies headache(s) and Denies disequilibrium Psych Reports as per HPI (Currently followed by Gurdeep Chi) Endo Denies polyphagia, Denies polydipsia and Reports polyuria Andre/Lymph Reports no additional complaints Aller/Immun Denies wheezing Physical exam (Primary Care) Vital Signs: Last Vital Signs Pulse 97 07/11/23 15:32 BP 132/84 07/11/23 15:32 Pulse Ox 96 07/11/23 15:32 Oxygen Delivery Method Room Air 07/11/23 15:32 BMI result Body Mass Index 31.1 BMI Assessment/Plan discussion: High BMI High, discussed plan: lifestyle, weight reduction, dietary and physical activity Tobacco/Smoking Status: Tobacco use Status Tobacco use date assessed 04/19/23 07/11/23 15:32 Patient Tobacco Use Status Current everyday Tobacco 07/11/23 15:32 e-Cigarette/Vaping Use Never Used 07/11/23 15:32 Are you ready to quit: No Tobacco cessation counseling provided: Yes Thrive Assessment: Date of Thrive Assessment Date Thrive assessed 04/19/23 07/11/23 15:32 Const Other: Alert oriented x3 no acute cardiorespiratory distress noted ambulatory with no rmal gait Nutritional Appearance: obese Orientation/consciousness: patient oriented x3 HENMT Other: Normocephalic atraumatic, Ears: hearing grossly normal bilaterally, external ears normal, TM's normal bilaterally and EAC's normal Face and sinus: Yes sinuses nontender and Yes face symmetric Mouth: Normal oral and palatal mucosa present and moist mucous membranes Eyes General: appearance normal, both eyes and all related structures Neck Other: Supple, no lymphadenopathy per, thyroid gland nonpalpable Neck: Yes no meningeal signs Resp Auscultation: clear to auscultation bilaterally Cardio Other: S1-S2 present regular rate and rhythm GI Other: Normal bowel sounds, soft, nontender, no mass palpated Skin General skin exam: no rashes or lesions noted Neuro General: patient oriented x3, gait normal, tone normal, moves all extremities, Normal light touch and pain sensation, no meningeal signs, no focal motor deficits and CN's II-XI intact bilaterally Extrem General: Yes full ROM, Yes no joint enlargement, Yes no pedal edema, Yes no calf tenderness and Yes normal gait Psych Appearance: grossly normal Mental Status: mental status grossly normal Speech and movement: Normal speech and movement present Affect: normal affect Attitude: cooperative Thought process: Normal thought process present Immunizations pneumoc 20-andrew conj-dip cr(PF) 0.5 mL IM syringe Performing Provider: Aimee Rudd MD Performing Location: [facility] [place] Administered by: García Mosley CMA on 07/11/23 16:55 Dose Route Admin Location Dispensed Lot Number Expiration Date NDC [employer] 0.5 mL IM Left Deltoid 0.5 mL [id number] 08/29/24 5397-8336-51 [employer] VIS Given Date VIS Provided VIS Publication Date 07/11/23 Single Vaccine 21 Eligibility Eligibility Date Funding Source Not [facility] Eligible 07/11/23 Private Results Reviewed Results Reviewed: Laboratory Tests 07/10/23 07/10/23 12:55 13:00 Estimat Average Glucose 226 Hemoglobin A1c % 9.5 H Urine Creatinine 74.26 Urine Microalbumin 13.0 Microalb/Creat Ratio 17.5 NTERED: 07/10/23-1254 [facility] : ORDERED: Met Prof Fast, AST, ALT, Lipid Panel, Vitamin D 25-OH Test Result Flag Reference Site Sodium 139 135-145 mmol/L Potassium 3.8 3.3-5.1 mmol/L CL 105 96-108 mmol/L CO2 24 22-29 mmol/L Gap 14 12-20 BUN 11 9-16 mg/dL Creat 0.75 0.5-1.4 mg/dL EGFR > 60 NOTE: For -Stateless individuals, multiply the result by 1.210. Chronic Kidney Disease: Estimated GFR < 60 mL/min/1.73m2 Severe Kidney Disease: Estimated GFR < 15 mL/min/1.73m2 FBS 167 H 60-99 mg/dL A fasting glucose of 126 mg/dl or greater on more than one occasion is considered diagnostic of diabetes. CA 9.3 # 8.4-10.2 mg/dL AST (GOT) 34 H 5-31 U/L ALT (GPT) 24 0-31 U/L Triglyceride 325 H <150 mg/dL Desirable Triglyceride: less than 150 mg/dL Borderline High Triglyceride 150-199 mg/dL High Triglyceride: 200-499 mg/dL Very High Triglyceride: greater than or equal to 5OO mg/dL Cholesterol 205 H <200 mg/dL Desirable Cholesterol: less than 200 mg/dL Borderline High Cholesterol: 200-239 mg/dL High Cholesterol: greater than 239 mg/dL LDL Calculated 108 H <100 mg/dL Desirable LDL: less than 100 mg/dL Near Optimal/Above Optimal LDL: 110-129 mg/dL Borderline High LDL: 130-159 mg/dL High LDL: 160-189 mg/dL Very High LDL: greater than or equal to 190 mg/dL HDL 32 L >40 mg/dL Desirable HDL: greater than 40 mg/dL Note: This HDL assay may give artificially low results in patients with liver disease. Vit D 25-OH Tot 63.7 >30 ng/mL Health Based Reference Values* < 20 ng/mL Deficient 20-30 ng/mL Insufficient > 30 ng/mL Sufficient Assessment and Plan Assessment & Plan (1) Diabetes mellitus with hyperglycemia: Code(s): E11.65 - Type 2 diabetes mellitus with hyperglycemia Plan: Stressed importance of compliance with taking medication and adhering to diet. Will change metformin to 750 mg extended release tablet to take once a day in a.m. with breakfast, and started Ozempic 0.25 mg once a week. Instructed on proper use of medication, and discussed possible side effects of medicine, to stop taking medicine if she develops any jaundice, severe abdominal pain, diarrhea, nausea vomiting . will see her back for follow-up in a month. (2) Positive colorectal cancer screening using Cologuard test: Code(s): R19.5 - Other fecal abnormalities Plan: Referred to GI for screening colonoscopy (3) Mixed dyslipidemia: Code(s): E78.2 - Mixed hyperlipidemia Plan: Continue rosuvastatin 10 mg daily, goal LDL cholesterol less than 100 mg per dL, had high triglycerides on recent labs, likely due to uncontrolled diabetes. Reinforced importance of getting regular exercise and adhering to recommended diet recheck another fasting lipid panel in 3 months (4) Dry cough: Code(s): R05.8 - Other specified cough Plan: Prescription sent for benzonatate Perles 200 mg per capsule to take 1 capsule twice a day as needed for cough Orders: Orders Pneumococcal 20 Immunization 07/11/23 Z23 - Encounter for immunization Referrals Gastroenterology Referral R19.5 - Other fecal abnormalities Medications: New benzonatate 200 mg PO TID PRN 30 caps 0RF cough ondansetron HCl 8 mg PO Q12H PRN 20 tabs 0RF nausea and vomiting metformin ER 750 mg PO DAILY 90 tabs 1RF E11.65 - Type 2 diabetes mellitus with hyperglycemia semaglutide (Ozempic) for 4 weeks 0.25 mg (0.368 mL) subcut QWEEK 1.84 mL 1RF 30 days Discontinued metformin ER Discontinued Reason: Doctor's Order 500 mg PO QPM 30 tabs 4RF Coding Level of Care Code Est Pt Level 4 (63873) Diagnoses Diabetes mellitus with hyperglycemia E11.65 Positive colorectal cancer screening using Cologuard test R19.5 Mixed dyslipidemia E78.2 Dry cough R05.8
[2023-07-11 15:32] VITALS: BP 132/84; PULSE 97; O2SAT 96; BMI 31.1
== END 2023-07-11 16:04 | disposition home or self-care (01) ==
PROVIDERS: PCP Internal Medicine; Visit Provider Internal Medicine
DX: Z23 Encounter for immunization (principal)
CPT/HCPCS: 90471; 90677; 99214

== ENCOUNTER 2023-07-23 14:15 | Outpatient (AMB) | payer OTHER, SELFPAY ==
--- NOTE | 2023-07-23 14:17 | MHC.OFFVIS ---
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 Intake Note: NPV Encoding Clerk Required: No Accompanied by: Self / Same As Patient Allergies penicillin V Allergy (Unknown, Verified 07/11/23 15:59) hives Medication List - Last Reconciled 07/23/23 by Randal De La Torre MD alprazolam 0.5 mg PO BID PRN amitriptyline 50 mg PO BEDTIME 30 days cholecalciferol (vitamin D3) 1,250 mcg PO QWEEK 3 months duloxetine 120 mg PO DAILY flash glucose scanning reader ([employer] Leticia 2 [place]) As directed flash glucose sensor ([employer] Leticia 2 Sensor kit) Use to test blood sugar 4 times per day metformin ER 750 mg PO DAILY ondansetron HCl 8 mg PO Q12H PRN rosuvastatin 10 mg PO DAILY semaglutide (Ozempic) 0.25 mg (0.368 mL) subcut QWEEK 30 days zolpidem 10 mg PO BEDTIME PRN HPI HPI Comments History of Present Illness Details Petra has been referred for evaluation of an abnormal EKG. Patient herself does not have any history of coronary disease myocardial infarction or cardiomyopathy or in fact any other cardiac issues. Recently diagnosed diabetes. Otherwise, within limits of her activity, she does not have any symptoms like angina or shortness of breath or palpitations or in fact anything of cardiac nature. She can walk up inclines, stairs extra with no cardiac symptoms. Otherwise, generally feels well. [facility] Medical History (Updated 07/23/23 @ 15:56 by Randal De La Torre MD) Positive colorectal cancer screening using Cologuard test Diabetes mellitus with hyperglycemia History of vitamin D deficiency Breast calcification, left Vitamin D deficiency Chronic insomnia Mixed dyslipidemia Surgical History Hx of tonsillectomy History of bunionectomy Family History Father Mental health disorder Cancer Social History Household Members: None Housing: Apartment Alcohol intake: current Alcohol intake frequency: holidays/special occasions only Patient Tobacco Use Status: Current everyday Tobacco user Cigarette Packs Per Day: 0.5 Cigarettes Per Day: 10 Years Smoked: 30 +/- e-Cigarette/Vaping Use: Never Used service: No Current occupational status: employed Cognitive needs: No Hearing needs: No Vision needs: No Review of Systems Const Denies chills, Denies daytime sleepiness, Denies fatigue, Denies fever(s), Denies frequent falls, Denies night sweats, Denies snoring, Denies weakness, Denies weight gain and Denies weight loss Eyes Denies loss of vision ENT Denies dizziness and Denies hearing loss Card Denies chest pain, Denies chest pain with activity, Denies syncope, Denies rapid heart rate, Denies edema, Denies claudication, Denies leg edema, Denies lightheadedness, Denies palpitations, Denies dyspnea, Denies dyspnea on exertion and Denies orthopnea Resp Denies cough, Denies excessive phlegm production, Denies dyspnea, Denies dyspnea on exertion, Denies snoring and Denies wheezing GI Denies abdominal pain, Denies hematochezia, Denies change in bowel habits, Denies change in stool character, Denies heartburn, Denies nausea and Denies vomiting Denies hematuria, Denies urinary frequency and Denies dysuria Musc Denies arthralgias, Denies muscle weakness, Denies numbness and Denies tingling Skin/Breast Denies nail changes and Denies rash Neuro Denies Abnormal speech present, Denies dizziness, Denies syncope, Denies frequent falls, Denies loss of vision, Denies memory loss, Denies numbness, Denies tingling and Denies weakness Psych Denies depression and Denies memory loss Endo Denies fatigue and Denies palpitations Aller/Immun Denies wheezing Physical Exam Vital Signs: Last Vital Signs Pulse 104 H 07/23/23 14:18 BP 120/76 07/23/23 14:18 BMI result Body Mass Index 30.3 Const General: comfortable and no acute distress Orientation/consciousness: patient oriented x3 HEENT Other: Unremarkable Head: Yes normal to inspection Neck Neck: Yes normal visual inspection Chest Chest palpation & inspection: normal inspection of the chest Resp Auscultation: clear to auscultation bilaterally Cardio Palpation: normal PMI Heart sounds: S1 normal heart sound present, S2 normal heart sound present, no gallops, no murmurs and no rubs GI Palpation (GI): Soft to palpation Back/Spine/Pelvis Other: unremarkable Skin General skin exam: no rashes or lesions noted Neuro General: patient oriented x3 Speech: No Abnormal speech present Extrem General: Yes normal to inspection Psych Mental Status: mental status grossly normal Assessment & Plan Assessment & Plan (1) Abnormal EKG: Code(s): R94.31 - Abnormal electrocardiogram [ECG] [EKG] Plan Recent EKG reviewed. Underlying rhythm is sinus at 96/Min. Nonspecific Q-waves in inferior leads most likely from her body habitus. Poor R-wave progression in the anterior leads again very likely from her body habitus. Normal [place]/corrected QT. In the absence of any symptoms, extremely unlikely to reflect underlying obstructive coronary disease or prior infarctions. Findings discussed with patient in great detail. Offered her the option of possibly an echocardiogram/stress test to evaluate these findings further, although expect low yield. After discussing conservative care as well as the above testing, she stated that she would rather leave it alone for now. She will think about it and if she decides to proceed, she will contact us. Coding Level of Care Code New Pt Level 3 (03078) Diagnoses Abnormal EKG R94.31
[2023-07-23 14:18] VITALS: BP 120/76; PULSE 104; BMI 30.3
== END 2023-07-23 14:45 | disposition home or self-care (01) ==
PROVIDERS: PCP Internal Medicine; Visit Provider Internal Medicine
DX: R94.31 Abnormal electrocardiogram [ECG] [EKG] (principal)
CPT/HCPCS: 99203

== ENCOUNTER → 2023-07-23 14:15 | Outpatient (BNVA) | payer OTHER, SELFPAY | PROVIDERS: PCP Internal Medicine; Visit Provider Internal Medicine ==

== ENCOUNTER 2023-09-25 15:25 | Outpatient (AMB) | payer OTHER, SELFPAY ==
[2023-09-25 15:26] VITALS: BP 140/69; PULSE 104; BMI 29.5
--- NOTE | 2023-09-25 15:26 | A.OFFVIS_ITS ---
Vital Signs 09/25/23 15:26 Height 5 ft 6 in Weight 182 lb 8.684 oz BMI 29.5 BP 140/69 H Blood Pressure Location Lt brachial Position Sitting Pulse 104 H Intake Visit Reasons: Colonoscopy screening Intake Note: New patient in office today for colonoscopy screening. CC: Patient reports that right now she is burping a lot with sulfur rotten egg smell and taste. She also states going sometimes 4-7 days without a BM. Editorial Intern Required: No Accompanied by: Self / Same As Patient Allergies penicillin V Allergy (Unknown, Verified 09/25/23 15:35) hives HPI HPI Colonoscopy screening: Details: 48-year-old female here for preprocedural meeting to discuss a screening colonoscopy. She is referred by Aimee Rudd of [facility] primary care. PMX High cholesterol Diabetes Chronic insomnia Positive Cologuard test * SURGICAL HISTORY Tonsillectomy Bunionectomy x 2 * ALLERGIES Penicillin * Storone LABS: Laboratory Tests 07/10/23 12:55 Estimated GFR > 60 Fasting Glucose 167 H Hemoglobin A1c % 9.5 H AST 34 H ALT 24 TODAY'S VISIT This is her 1st colonoscopy. She has been having trouble since the end of last year with sudden onset of what she describes as ?sulfur burps? followed by severe copious nausea and vomiting. This is happened about 5 times since the onset at the end of last year. It does not seem to be consistent and does not seem to be related to types of food eaten. She is a diabetic, and she is just started on Ozempic but the symptoms predate starting on this medication. She frequently suffers constipation sometimes only moving her bowels once a we ek. However she did start moving her bowels over the past couple days and she has had an exacerbation of her nausea and vomiting that persisted into today despite moving her bowels. She knows that the problem will start when she starts having the burping symptom. She occasionally has pain in the belly but this has not been a severe associated symptom. She has had trouble with N/V with past anesthesia and may need pre treatment. She denies any cardiac or respiratory problems. No ID problems. There is no known FHX of crc or polyps or esoph or stomach cancer. She lost 10 lbs recently via intentional dieting. ROV 8 weeks to eval taking miralax nightly. [facility] Medical History Positive colorectal cancer screening using Cologuard test Diabetes mellitus with hyperglycemia History of vitamin D deficiency Breast calcification, left Vitamin D deficiency Chronic insomnia Mixed dyslipidemia Surgical History Hx of tonsillectomy History of bunionectomy Family History Father Mental health disorder Cancer Social History Household Members: None Housing: Apartment Alcohol intake: current Alcohol intake frequency: holidays/special occasions only Patient Tobacco Use Status: Current everyday Tobacco user Cigarette Packs Per Day: 0.5 Cigarettes Per Day: 10 Years Smoked: 30 +/- e-Cigarette/Vaping Use: Never Used service: No Current occupational status: employed Cognitive needs: No Hearing needs: No Vision needs: No Review of Systems Const Denies fatigue, Denies fever(s), Denies night sweats, Denies poor appetite and Denies weight loss ENT Reports Normal hearing present, Denies dental pain, Denies dysphagia, Denies hearing loss, Denies mouth pain, Denies odynophagia, Denies throat swelling, Denies tongue swelling and Reports other (Dentition adequate) Card Reports no additional complaints Resp Reports no additional complaints GI Details: Denies abdominal pain, Reports belching, Denies melena, Denies bloating, Denies hematochezia, Reports constipation, Denies GI cramping, Denies dysphagia, Denies excessive flatus, Denies early satiety, Denies heartburn, Denies diarrhea, Reports nausea, Denies odynophagia, Reports vomiting and Denies hematemesis Skin/Breast Denies pruritus, Denies lesions, Denies rash and Denies jaundice Neuro Reports Normal hearing present and Denies Abnormal speech present Endo Denies fatigue Aller/Immun Denies throat swelling and Denies tongue swelling Physical Exam Vital Signs: Last Vital Signs Pulse 104 H 09/25/23 15:26 BP 140/69 H 09/25/23 15:26 BMI result Body Mass Index 29.5 Const General: cooperative, no acute distress, well developed and well groomed Nutritional Appearance: well nourished and overweight Orientation/consciousness: oriented to person, oriented to place and oriented to time Limitations: No language barrier HEENT Head: Yes normocephalic and Yes atraumatic Eyes General: appearance normal, both eyes and all related structures Pupils: Equal, round and reactive pupils present Neck Neck: Yes normal visual inspection and Yes no lymphadenopathy Thyroid: Thyroid normal Resp Effort & Inspection: normal respiratory effort and able to speak in complete sentences Auscultation: clear to auscultation bilaterally Cardio Rate: regular rate Rhythm: regular rhythm Heart sounds: Normal, physiologic split S2 sound present Peripheral pulses: radial pulses present and posterior tibial pulses present GI Inspection: No distended and No Abdominal panniculus present Palpation (GI): Soft to palpation, nontender, no guarding, not rigid and No hepatosplenomegaly present Percussion: Yes normal to percussion Auscultation: normal bowel sounds Rectal Exam - Female: deferred Skin General skin exam: no rashes or lesions noted, turgor normal, skin not dry, no jaundice, No spider nevi and no striae Rashes: no rashes Nails: normal Neuro General: oriented to person, oriented to place and oriented to time Cranial nerves: Yes Equal, round and reactive pupils present and Yes Normal hearing present Speech: No Abnormal speech present Extrem General: Yes normal to inspection, No clubbing, No cyanosis and No edema Psych Appearance: grossly normal and well kempt Mental Status: mental status grossly normal Speech and movement: Normal speech and movement present Affect: normal affect Attitude: cooperative Thought process: Normal thought process present and not confabulating Thought content: Normal thought content present Insight: Fair insight present (Psych) Judgement: Fair judgement present (Psych) Assessment & Plan Assessment & Plan (1) Pre-op examination: Code(s): Z01.818 - Encounter for other preprocedural examination Category: Medical (2) Positive colorectal cancer screening using Cologuard test: Code(s): R19.5 - Other fecal abnormalities Category: Medical (3) Nausea and vomiting: Code(s): R11.2 - Nausea with vomiting, unspecified Category: Medical (4) Diabetes mellitus with hyperglycemia: Code(s): E11.65 - Type 2 diabetes mellitus with hyperglycemia Category: Medical Plan This is her 1st colonoscopy. She has been having trouble since the end of last year with sudden onset of what she describes as ?sulfur burps? followed by severe copious nausea and vomiting. This is happened about 5 times since the onset at the end of last year. It does not seem to be consistent and does not seem to be related to types of food eaten. She is a diabetic, and she is just started on Ozempic but the symptoms predate starting on this medication. She frequently suffers constipation sometimes only moving her bowels once a week. However she did start moving her bowels over the past couple days and she has had an exacerbation of her nausea and vomiting that persisted into today despite moving her bowels. She knows that the problem will start when she starts having the burping symptom. She occasionally has pain in the belly but this has not been a severe associated symptom. She has had trouble with N/V with past anesthesia and may need pre treatment. She denies any cardiac or respiratory problems. No ID problems. There is no known FHX of crc or polyps or esoph or stomach cancer. She lost 10 lbs recently via intentional dieting. ROV 8 weeks to eval taking miralax nightly. Orders: Orders EGD/[place] [facility] - GI Use Only 09/25/23 R11.2 - Nausea with vomiting, unspecified, E11.65 - Type 2 diabetes mellitus with hyperglycemia NM gastric emptying study 09/25/23 R11.2 - Nausea with vomiting, unspecified, E11.65 - Type 2 diabetes mellitus with hyperglycemia Medications: New peg 3350-electrolytes 236-22.74-6.74 -5.86 gram (Golytely) until fecal effluent is clear; do not exceed a total volume of 2,000 mL 240 mL PO Q10M 4,000 mL 0RF 1 day Z12.11 - Encounter for screening for malignant neoplasm of colon bisacodyl (Dulcolax (bisacodyl)) 10 mg (2 x 5 mg) PO BEDTIME 4 tabs 0RF 2 days
== END 2023-09-25 16:15 | disposition home or self-care (01) ==
PROVIDERS: PCP Internal Medicine; Visit Provider Nurse Practitioner
DX: Z01.818 Encounter for other preprocedural examination (principal); R19.5 Other fecal abnormalities; R11.2 Nausea with vomiting, unspecified; E11.65 Type 2 diabetes mellitus with hyperglycemia
CPT/HCPCS: 99203

== ENCOUNTER → 2023-09-25 15:25 | Outpatient (BNVA) | payer OTHER, SELFPAY | PROVIDERS: PCP Internal Medicine; Visit Provider Nurse Practitioner ==

== ENCOUNTER → 2023-10-16 07:48 | Outpatient (REF) | payer OTHER, SELFPAY ==
--- NOTE | ~2023-10-16 | NM_ITS ---
EXAMINATION: RADIONUCLIDE SOLID FOOD GASTRIC EMPTYING 4-HOUR STUDY CLINICAL INFORMATION: Nausea with vomiting. COMPARISON: No previous gastric emptying study is available for comparison. TECHNIQUE: A standard meal consisting of 4 oz of Egg Beaters brand equivalent tagged with 910 microcuries Tc-99m Sulfur Colloid, 8 oz water and 2 slices of toast with jelly was administered orally to the patient. Images were obtained using a dual head gamma camera in the anterior and posterior projections over of the stomach immediately post ingestion and at hourly intervals up to 4 hours post ingestion. The anterior and posterior counts at each time interval were averaged using the geometric mean and expressed as percentage of the immediate post ingestion counts. FINDINGS: There is good visualization of activity in the stomach immediately post ingestion. As the study progresses, there is good clearance of activity from the stomach and visualization of progressively increasing small bowel activity. By the end of the study, there is almost no retention noted in the stomach. Retention in the stomach at each time interval was: 1 hour 82% (normal 37%-90%) 2 hours 60% (normal 30%-60%) 3 hours 26% 4 hours 10% (normal 0%-10%) NM/NM gastric emptying study IMPRESSION: Normal 4-hour solid food gastric emptying study. Gastric emptying study grading per JNMT Consensus Recommendations in 2008: https://tech.snmjournals.org/content/36/1/44 Grade 1 (mild retention): 11-20% at 4 hours Grade 2 (moderate retention): 21-35% at 4 hours Grade 3 (severe retention): 36-50% at 4 hours Grade 4 (very severe retention): >50% retention at 4 hours
== END ==
LOC: HO.NUCMED 07:48
PROVIDERS: PCP Internal Medicine; Visit Provider Nurse Practitioner
DX: R11.2 Nausea with vomiting, unspecified (principal); E11.65 Type 2 diabetes mellitus with hyperglycemia
CPT/HCPCS: 78264; A9541

== ENCOUNTER 2023-10-21 11:40 | Day surgery (SDC) | payer OTHER, SELFPAY ==
[2023-10-21 12:15] VITALS: BMI 30.4
[2023-10-21 12:39] LABS: UPreg QC Valid YES; Urine Pregnancy NEGATIVE (NEGATIVE)
[2023-10-21 12:41] VITALS: BP 149/91; PULSE 104; RESP 16; TEMP 36.8; O2SAT 94
[2023-10-21] MEDS: Lactated Ringers 1,000 ML 80 ML IVCONT (12:43)
--- NOTE | 2023-10-21 12:43 | P.CONAN_ITS ---
[facility] Active Problems Active Problems: All Active Problems Nausea and vomiting (Acute) Pre-op examination (Acute) Abnormal EKG (Acute) Positive colorectal cancer screening using Cologuard test (Acute) Diabetes mellitus with hyperglycemia (Acute) History of vitamin D deficiency (Acute) Breast calcification, left (Acute) Hypersomnia (Acute) Sleep disorder (Acute) Chronic insomnia (Acute) Mixed dyslipidemia (Acute) Past Medical History Medical History Positive colorectal cancer screening using Cologuard test Diabetes mellitus with hyperglycemia History of vitamin D deficiency Breast calcification, left Vitamin D deficiency Chronic insomnia Mixed dyslipidemia Family History Family History Father Mental health disorder Cancer Family history of problems with anesthesia: No Surgical History Surgical History Hx of tonsillectomy History of bunionectomy History of Problems with Anesthesia: No Social History Social History Household Members: None Housing: Apartment Alcohol intake: current Alcohol intake frequency: holidays/special occasions only Patient Tobacco Use Status: Current everyday Tobacco user Cigarette Packs Per Day: 0.5 Cigarettes Per Day: 10 Years Smoked: 30 +/- e-Cigarette/Vaping Use: Never Used Use of substances other than those prescribed or required for medical reasons: No Are you DNR?: No Advance Directives: No Advance Directives Information Provided: Yes service: No Current occupational status: employed Cognitive needs: No Hearing needs: No Vision needs: No Meds Allergies Allergy/AdvReac Type Severity Reaction Status Date / Time penicillin V Allergy Unknown hives Verified 10/21/23 12:20 Active Medications: Current Medications Lactated Ringer's (Lr) 1,000 mls @ 80 mls/hr IVCONT .[id number] [facility] Home Medications ?Medication ?Instructions ?Recorded ?Confirmed ?Last Taken ?Type alprazolam 0.5 mg tablet 0.5 mg PO BID PRN 08/11/20 07/23/23 Unknown History duloxetine 60 mg capsule,delayed 120 mg PO DAILY 06/05/22 10/21/23 10/18/23 History release Exam Height,Weight and Vital Signs: Height 5 ft 5 in Weight 83.007 kg Last Vital Signs Temp 98.3 F 10/21/23 12:41 Pulse 104 H 10/21/23 12:41 Resp 16 10/21/23 12:41 BP 149/91 H 10/21/23 12:41 Pulse Ox 94 10/21/23 12:41 O2 Del Method Room Air 10/21/23 12:41 Pertinent Lab Results Pertinent Lab Results: Laboratory Tests 10/21/23 12:26 Urine Test NEGATIVE Airway Mallampati Class: II TM Dist: >3cm Neck ROM: Full Heart: rrr Lungs: cta Assessment and Plan Assessment Anesthesia Assessment: Anesthesia Plan Discussed and Chart Reviewed Final Anesthetic Review Family History of Problems with Anesthesia: No History of Problems with Anesthesia: No NPO: Yes ASA Class: III Final Preanesthetic Review: No Changes in Pt Med Stat, Meds/Allgs Chart Reviewed and Consent Obtained/Reviewed Patient Risk: Intermediate Procedure Risk: Low Anesthetic Plan Anesthetic Plan: MAC: Disposition: Standard PACU
[2023-10-21 12:49] LABS: Glucose, Whole Blood 144 mg/dL (60-115)
--- NOTE | 2023-10-21 13:13 | MHC.SHP ---
Pre-Procedural Eval Section A - 24 Hr Update-Section A only Date of Service: 10/21/23 The patient is an INPATIENT: No Changes since office visit: Yes Patient answered all questions; No Cold of Flu in the past 2 weeks and No Changes in Medication The patient has been examined within 24 hours of the surgical procedure. The History & Physical has been completed within 30 days and I have reviewed it.: Yes Section B - Complete if H&P > 30 days Chief Complaint: Colon cancer screening, nausea, vomiting Allergies: Allergies Allergy/AdvReac Type Severity Reaction Status Date / Time penicillin V Allergy Unknown hives Verified 10/21/23 12:20 Review of Systems Sugical H&P ROS: Negative: Constitution, Cardiovascular and Respiratory Exam Surgical H&P Exam: Normal: Heart, Normal: Lungs, Normal: Extremities and Normal: Abdomen Plan Diagnosis/Plan: Unchanged I have reviewed the history and physical and performed a pertinent physical examination on my patient. No changes have occurred unless specified. Time Spent With Patient Time: Total time managing care of this patient today ____ minutes.
--- NOTE | 2023-10-21 13:27 | P.OP_ITS ---
Operative Note Operative Note Date of Service: 10/21/23 Narrative: FLEXIBLE TRANSORAL UPPER GASTROINTESTINAL ENDOSCOPY WITH BIOPSIES AND ESOPHAGEAL BALLOON DILATION AND COLONOSCOPY TILL CECUM WITH BIOPSIES AND SNARE POLYPECTOMY Pre-op diagnosis: Colon cancer screening, nausea and vomiting, Dysphagia Post-op diagnosis: Esophagitis, Gastritis, Gastric polyp, dysphagia Colon Polyps, Diverticulosis Endoscopist:? Dash Rivas MD Anesthesia:?MAC UPPER ENDOSCOPY Consent: Indications for the procedure and potential complications of bleeding, perforation, reaction to medications and missed diagnosis were discussed with the patient and informed consent was obtained. Instrument: Olympus GIF H 190 mid size upper endoscope Monitoring: Vital signs and clinical assessment, continuous EKG monitoring, Pulse oximetry, Carbon Dioxide monitoring and blood pressure monitoring were done throughout the procedure. Procedure: The patient was placed in the left lateral decubitis position and pre-procedure medications were administered and a bite block was placed. The endoscope was inserted into the mouth and advanced under direct vision to the third part of duodenum. A careful inspection was made as the upper endoscope was withdrawn including a retroflexed examination of the proximal stomach; Findings and interventions are described below. Findings: Larynx: Normal Esophagus: GE junction at 38 cms. No esophagitis, March's, stricture or ring. Empiric balloon dilation was performed with a 20 mm (60 F) CRE balloon x 60 secs. Stomach: Multiple 1-2 cms benign appearing polyps in the gastric fundus - biopsied. Moderate diffuse gastric erythema - biopsies were obtained from the antrum. Grade 2 flap valve on retroflexed examination of the cardia. Duodenum: Normal bulb and descending duodenum Biopsies were obtained from descending duodenum to check for celiac sprue Intervention: Biopsies as noted above COLONOSCOPY PROCEDURE NOTE Instrument: Olympus PCF H 190 L variable stiffness pediatric colonoscope Monitoring: Vital signs and clinical assessment, intermittent blood pressure monitoring, continuous EKG monitoring, Pulse oximetry and Carbon Dioxide monitoring were done throughout the procedure. Please see anesthesia flowsheet. Colon withdrawl time was 17 minutes. Procedure: The patient was placed in the left lateral decubitis position and pre-procedure medications were administered. After a digital rectal examination of the ano-rectum, the video colonoscope was inserted into the rectum and advanced through the colon to the cecum. The colonoscope was slowly withdrawn in a retrograde panoramic fashion and the colon mucosa was carefully examined including a retroflexed view of the rectum. Findings and interventions are described below. Procedure Difficulty: without difficulty, there was excessive spasm in the colon during intubation and withdrawl Findings: Terminal Ileum: Not evaluated Cecum: Normal Ascending Colon: Normal Transverse Colon: Normal Descending Colon: Normal Sigmoid Colon: A 7-8 mm diminutive appearing polyp - removed with a cold biopsy. Moderate diverticulosis Rectum: Normal Ano-rectum: Normal Colon preparation: Good after some irrigation. [place] Bowel Preparation Scale Right colon; 2 Transverse colon: 3 Left colon; 3 (0 = Unprepared colon segment with mucosa not seen due to solid stool that cannot be cleared. 1 = Portion of mucosa of the colon segment seen, but other areas of the colon segment not well seen due to staining, residual stool and/or opaque liquid. 2 = Minor amount of residual staining, small fragments of stool and/or opaque liquid, but mucosa of colon segment seen well. 3 = Entire mucosa of colon segment seen well with no residual staining, small fragments of stool or opaque liquid) Impression and Post Procedure Diagnosis: Endoscopy Findings: ESOPHAGUS: GE junction at 38 cms. No esophagitis, March's, stricture or ring. Empiric balloon dilation was performed with a 20 mm (60 F) CRE balloon x 60 secs. STOMACH: Gastritis and multiple gastric polyps DUODENUM: Normal - biopsied to check for celiac sprue Colonoscopy Findings: One small polyp was removed Moderate diverticulosis seen in the sigmoid colon Plan: Pt has a FU appointment on 11/20/23 with Caitlin Jaimes NP. Repeat Colonoscopy in 5 years if polyps are adenomatous and 10 year if polyps are hyperplastic. Above findings were reviewed with the patient and relevant handouts were given and the discharge area. Pt states nausea and vomiting has resolved since she stopped taking Ozempic BIOPSIES SHOWED: A. Small bowel, biopsy: Duodenal mucosa within normal limits; negative for steve iac disease. B. Stomach, antrum, biopsy: Antral-type and oxyntic mucosa with mild chronic inactive inflammation; no Helicobacter organisms seen. C. Stomach, body, biopsy: Oxyntic mucosa with mild chronic inactive inflammation; no Helicobacter organisms seen. D. Stomach, polyp: Hyperplastic mucosal polyp with background mild chronic inactive inflammation; no Helicobacter organisms seen. E. Colon, sigmoid, polypectomy: Colonic mucosa with prominent lymphoid aggregate Letter sent advising repeat EGD in 1 year (FU of hyperplastic gastric polyps) and repeat colon in 10 years
[2023-10-21 14:16] VITALS: BP 129/75; PULSE 82; RESP 14; TEMP 37.2; O2SAT 93
[2023-10-21 14:31] VITALS: BP 131/71; PULSE 90; RESP 16; TEMP 37.1; O2SAT 97
== END 2023-10-21 15:00 | disposition home or self-care (01) ==
PROVIDERS: Anesthesiology; PCP Internal Medicine; Visit Provider Internal Medicine Gastroenterology
PROC: (CPT 45385; principal; 2023-10-21 14:20)
DX: Z12.11 Encounter for screening for malignant neoplasm of colon (principal); K63.5 Polyp of colon; K57.30 Diverticulosis of large intestine without perforation or abscess without bleeding; K64.8 Other hemorrhoids; R11.2 Nausea with vomiting, unspecified; R13.10 Dysphagia, unspecified; K20.80 Other esophagitis without bleeding; K29.50 Unspecified chronic gastritis without bleeding; K31.7 Polyp of stomach and duodenum; E78.00 Pure hypercholesterolemia, unspecified; E11.65 Type 2 diabetes mellitus with hyperglycemia; E55.9 Vitamin D deficiency, unspecified; Z79.84 Long term (current) use of oral hypoglycemic drugs; Z79.85 Long-term (current) use of injectable non-insulin antidiabetic drugs; Z79.899 Other long term (current) drug therapy; Z88.0 Allergy status to penicillin; F17.210 Nicotine dependence, cigarettes, uncomplicated
CPT/HCPCS: 45385; 45380; 43249; 43239; 81025; 82947; 88305; 88313; 88342; C1726; J2704

== ENCOUNTER → 2023-10-21 11:40 | Outpatient (BNV) | payer OTHER, SELFPAY | PROVIDERS: PCP Internal Medicine; Visit Provider Internal Medicine Gastroenterology | DX: Z12.11 Encounter for screening for malignant neoplasm of colon (principal); K63.5 Polyp of colon; K57.30 Diverticulosis of large intestine without perforation or abscess without bleeding; R13.10 Dysphagia, unspecified; R11.2 Nausea with vomiting, unspecified; K31.7 Polyp of stomach and duodenum; K20.90 Esophagitis, unspecified without bleeding; K29.70 Gastritis, unspecified, without bleeding | CPT/HCPCS: 43239; 43249; 45380 ==

== ENCOUNTER 2023-10-29 08:08 | Outpatient (REF) | payer OTHER, SELFPAY ==
[2023-10-29 10:53] LABS: Alanine Aminotransferase 31 U/L (0-31); Anion Gap 18 (12-20); Aspartate Amino Transferase 29 U/L (5-31); Blood Urea Nitrogen 6 mg/dL (9-16); Calcium 9.3 mg/dL (8.4-10.2); Carbon Dioxide 23 mmol/L (22-29); Chloride 105 mmol/L (96-108); Cholesterol 164 mg/dL (<200); Estimated Glomerular Filt Rate > 60; Glucose Fasting 115 mg/dL (60-99); HDL Cholesterol 34 mg/dL (>40); LDL Cholesterol Calculated 97 mg/dL (<100); Potassium 3.8 mmol/L (3.3-5.1); Sodium 142 mmol/L (135-145); Triglycerides 166 mg/dL (<150)
[2023-10-29 15:15] LABS: Estimated Average Glucose 137 mg/dL; Hemoglobin A1c % 6.4 % (<6.0)
== END 2023-10-29 08:09 | disposition home or self-care (01) ==
LOC: HO.HMGCLDS 08:08
PROVIDERS: PCP Internal Medicine; Visit Provider Internal Medicine
DX: E11.65 Type 2 diabetes mellitus with hyperglycemia (principal); E78.2 Mixed hyperlipidemia
CPT/HCPCS: 36415; 80048; 80061; 83036; 84450; 84460

== ENCOUNTER 2023-10-30 09:38 | Outpatient (AMB) | payer OTHER, SELFPAY ==
[2023-10-30 09:44] VITALS: BP 124/80; PULSE 103; O2SAT 97; BMI 30.6
--- NOTE | 2023-10-30 09:44 | A.OFFPC_ITS ---
<Statement entered by Aimee Rudd MD - 11/28/24 01:51> This note has been administratively?closed. Vital Signs 10/30/23 09:44 Height 5 ft 5 in Weight 184 lb BMI 30.6 BP 124/80 Blood Pressure Location Rt brachial Position Sitting Pulse 103 H Pulse Source Pulse Oximeter Pulse Oximetry (%) 97 Oxygen Delivery Method Room Air Intake Visit Reasons: F/U DM Labs Intake Note: Pt is here today for her f/u DM Allergies penicillin V Allergy (Unknown, Verified 11/20/24 09:36) hives Medication List - Last Reconciled 10/30/23 by Aimee Rudd MD alprazolam 0.5 mg PO BID PRN amitriptyline 50 mg PO BEDTIME 30 days cholecalciferol (vitamin D3) 1,250 mcg PO QWEEK 3 months duloxetine 120 mg PO DAILY flash glucose scanning reader (FinoveraStyle Leticia 2 Watson) As directed flash glucose sensor (FreeStyle Leticia 2 Sensor kit) Use to test blood sugar 4 times per day metformin ER 750 mg PO DAILY omeprazole 40 mg PO DAILY ondansetron HCl 8 mg PO Q12H PRN rosuvastatin 10 mg PO DAILY zolpidem 10 mg PO BEDTIME PRN Tobacco use date assessed: 10/30/23 Dental Screening Dental Screen Date: 10/30/23 Did you have a dental visit in the last 12 months?: Yes Did you have a dental problem in the last 6 months where you did not have access to dental care?: No Was dental information given to patient?: Patient has dentist HPI F/U DM Labs HPI Details Patient states that she has been getting 1 or 2 readings below 60 mg at night on metformin ER 750 mg taken in the morning [facility] Medical History (Updated 11/20/24 @ 09:47 by Aimee Rudd MD) Gastroparesis Obesity Diabetes mellitus with hyperglycemia, without long-term current use of insulin Type 2 diabetes mellitus without complication, without long-term current use of insulin Lateral pain of right hip Positive colorectal cancer screening using Cologuard test Diabetes mellitus with hyperglycemia History of vitamin D deficiency Breast calcification, left Vitamin D deficiency Chronic insomnia Mixed dyslipidemia Surgical History History of esophagogastroduodenoscopy (EGD) H/O colonoscopy Hx of tonsillectomy History of bunionectomy Family History Father Mental health disorder Cancer Social History Household Members: None Housing: Apartment Alcohol intake: current Alcohol intake frequency: holidays/special occasions only Patient Tobacco Use Status: Current everyday Tobacco user Cigarette Packs Per Day: 0.5 Cigarettes Per Day: 10 Years Smoked: 30 +/- e-Cigarette/Vaping Use: Never Used service: No Current occupational status: employed 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 1. Little interest or pleasure in doing things: not at all 2. Feeling down, depressed, or hopeless: not at all 3. Trouble falling or staying asleep, or sleeping too much: not at all 4. Feeling tired or having little energy: not at all 5. Poor appetite or overeating: not at all 6. Feeling bad about yourself - or that you are a failure or have let yourself or your family down: not at all 7. Trouble concentrating on things, such as reading the newspaper or watching television: not at all 8. Moving or speaking so slowly that other people could have noticed. Or the opposite - being so fidgety or restless that you have been moving around a lot more than usual: not at all 9. Thoughts that you would be better off or of hurting yourself in some way: not at all Total score: 0 Depression Screening Interpretation: Negative Depression Screening Done: Yes 95377 - PHQ-9 Billing: Yes Source: Developed by Drs. Oscar Parrish, Ivis Redd, Francisco J Stuart and colleagues, with an educational kira from [employer]. Thrive Questionnaire Date Thrive assessed: 10/30/23 I am a: Patient What is your living situation today?: I have a steady place to live Within the past 12 months, did the food you bought not last and you didn't have the money to get more?: Never true Within the past 12 months, did you worry whether your food would run out before you got money to buy more?: Never true Do you have trouble paying for medicines?: No Do you have trouble getting transportation to medical appointments?: No Do you have trouble paying your heating and electricity bill?: No Do you have trouble taking care of your child, family member or friend?: No Do you have trouble with day-to-day activities such as bathing, preparing meals, shopping, managing finances, etc.?: No Are you currently unemployed and looking for a job?: No Are you interested in more education?: No THRIVE Score: 0 AUDIT C Alcohol Use Questionnaire (AUDIT-C) 1. How often do you have a drink containing alcohol?: Monthly or less 2. How many drinks containing alcohol do you have on a typical day when you are drinking?: 1 or 2 3. How often do you have six or more drinks on one occasion?: Never Total Score: 1 ANANTH-7 AMB Questionnaire ANANTH-7 Date ANANTH - 7 assessed: 10/30/23 Feeling nervous, anxious, or on edge: 0 = Not at all Not being able to stop or control worryin = Not at all Worrying too much about different things: 0 = Not at all Trouble relaxin = Not at all Being so restless that it is hard to sit still: 0 = Not at all Becoming easily annoyed or irritable: 0 = Not at all Feeling afraid as if something awful might happen: 0 = Not at all Total ANANTH-7 score (0-4 normal; 5-9 mild; 10-14 moderate; 15-21 severe): 0 Source: Developed by Drs. Oscar Parrish, Ivis Redd, Francisco J Stuart and colleagues, with an educational kira from [employer]. Physical exam (Primary Care) Vital Signs: Last Vital Signs Pulse 103 H 10/30/23 09:44 BP 124/80 10/30/23 09:44 Pulse Ox 97 10/30/23 09:44 Oxygen Delivery Method Room Air 10/30/23 09:44 BMI result Body Mass Index 30.6 Tobacco/Smoking Status: Tobacco use Status Tobacco use date assessed 10/30/23 10/30/23 09:46 Patient Tobacco Use Status Current everyday Tobacco 10/30/23 09:46 e-Cigarette/Vaping Use Never Used 10/30/23 09:46 PHQ-9: PHQ-9 Score PHQ-9: Total score 0 11/27/24 09:57 Depression Screening Interpretation: Negative Thrive Assessment: Date of Thrive Assessment Date Thrive assessed 10/30/23 10/30/23 10:17 Results Reviewed Results Reviewed: Laboratory Tests 10/29/23 08:16 Estimat Average Glucose 137 Hemoglobin A1c % 6.4 H RUN: 10/30/23 1033 PAGE 1 [facility] [address] [place] [id number] Allergist/Immunologist: Ulysses Jiménez M.D. Specimen Inquiry Name: Petra Rodriguez Age/Sex: 48/F : 1975 Unit#: [id number] Attend Dr: Aimee Rudd MD Re10/29/23 Status: DEP [facility]F [facility] Disch: SPEC : [id number] [place]: 10/29/23 STATUS: COMP REQ : [id number] RECD: 10/29/[address]: Aimee Rudd MD COMP: 10/29/23 ENTERED: 10/29/[address] [facility] DR: ORDERED: Met Prof Fast, AST, ALT, Lipid Panel Test Result Flag Reference Sodium 142 135-145 mmol/L Potassium 3.8 3.3-5.1 mmol/L CL 105 96-108 mmol/L CO2 23 22-29 mmol/L Gap 18 12-20 BUN 6 L 9-16 mg/dL Creat 0.70 0.5-1.4 mg/dL EGFR > 60 NOTE: For -Wallis[place] individuals, multiply the result by 1.210. Chronic Kidney Disease: Estimated GFR < 60 mL/min/1.73m2 Severe Kidney Disease: Estimated GFR < 15 mL/min/1.73m2 FBS 115 H 60-99 mg/dL A fasting glucose from 100-125 mg/dl is considered impaired (pre-diabetes). CA 9.3 8.4-10.2 mg/dL AST (GOT) 29 5-31 U/L ALT (GPT) 31 0-31 U/L Triglyceride 166 H <150 mg/dL Desirable Triglyceride: less than 150 mg/dL Borderline High Triglyceride 150-199 mg/dL High Triglyceride: 200-499 mg/dL Very High Triglyceride: greater than or equal to 5OO mg/dL Cholesterol 164 <200 mg/dL Desirable Cholesterol: less than 200 mg/dL Borderline High Cholesterol: 200-239 mg/dL High Cholesterol: greater than 239 mg/dL LDL Calculated 97 <100 mg/dL Desirable LDL: less than 100 mg/dL Near Optimal/Above Optimal LDL: 110-129 mg/dL Borderline High LDL: 130-159 mg/dL High LDL: 160-189 mg/dL Very High LDL: greater than or equal to 190 mg/dL HDL 34 L >40 mg/dL Desirable HDL: greater than 40 mg/dL Note: This HDL assay may give artificially low results in patients with liver disease. Coding Level of Care Code Admin Sign Off/No Billing Diagnoses Lateral pain of right hip M25.551 Mixed dyslipidemia E78.2 Chronic insomnia F51.04 History of vitamin D deficiency Z86.39 Diabetes mellitus with hyperglycemia E11.65
== END 2023-10-30 11:14 | disposition home or self-care (01) ==
PROVIDERS: PCP Internal Medicine; Visit Provider Internal Medicine
DX: M25.551 Pain in right hip (principal); E78.2 Mixed hyperlipidemia; F51.04 Psychophysiologic insomnia; Z86.39 Personal history of other endocrine, nutritional and metabolic disease; E11.65 Type 2 diabetes mellitus with hyperglycemia
CPT/HCPCS: 99499

== ENCOUNTER 2023-11-18 11:46 | Outpatient (REF) | payer OTHER, SELFPAY ==
--- NOTE | ~2023-11-18 | XR_ITS ---
EXAMINATION: XR PELVIS CLINICAL INFORMATION: Pain unspecified. COMPARISON: None available. TECHNIQUE: AP view of the pelvis. FINDINGS: Bilateral sacroiliac joints are symmetric with moderate degenerative changes. Advanced degenerative changes in the right hip with [id number] narrowing along the superior lateral aspect as well as subchondral sclerosis, remodeling and hypertrophic change. Moderate narrowing in the left hip joint most notable along the superolateral aspect with moderate lateral osteophytes. Atypical appearance of the bilateral femoral head/neck regions, more notable on the right, with bony exostosis/hypertrophy/heterotopic ossification of indeterminate age and etiology. There are cystic lucencies along the medial aspect of the right femoral head/neck with possible associated destructive changes and sclerosis of indeterminate etiology. XR/XR pelvis 1-2V IMPRESSION: Advanced degenerative changes in bilateral hips, right greater than left. Atypical appearance of the bilateral femoral head/neck regions, more notable on the right, with bony exostosis/hypertrophy/heterotopic ossification of indeterminate age and etiology. There are cystic lucencies along the medial aspect of the right femoral head/neck with possible associated destructive changes and sclerosis of indeterminate etiology. Correlation with clinical exam as well as dedicated imaging with CT scan or MRI recommended. This study was presented today December 02, 2023 for interpretation. PSA staff will provide results to referring provider at this time.
== END 2023-11-18 11:47 | disposition home or self-care (01) ==
LOC: HO.HOSX 11:46
PROVIDERS: Visit Provider Orthopaedic Surgery
DX: M25.559 Pain in unspecified hip (principal)
CPT/HCPCS: 72170

== ENCOUNTER 2023-11-18 12:43 | Outpatient (AMB) | payer OTHER, SELFPAY ==
--- NOTE | 2023-11-18 12:49 | MHC.OFFVIS ---
Vital Signs 11/18/23 12:50 Height 5 ft 5 in Weight 184 lb BMI 30.6 Intake Visit Reasons: M25.551 - Pain in right hip Intake Note: Petra is a 48 year old female who presents today as a new patient with complaints of right hip pain. Patient reports that she has had ongoing right hip pain for about 2 years now. Denies injury and any previous treatment. She walks with a limp. Her pain is felt on the lateral aspect of the right hip and radiates down the anterior thigh to the knee. She has increased pain in the right knee with driving and with gait initiation after prolonged sitting. No releiving factors. Allergies penicillin V Allergy (Unknown, Verified 11/20/23 09:18) hives HPI HPI M25.551 - Pain in right hip: Details: Petra is a 48 year old female who presents today as a new patient with complaints of right hip pain. Patient reports that she has had ongoing right hip pain for about 2 years now. Denies injury and any previous treatment. She walks with a limp. Her pain is felt on the lateral aspect of the right hip and radiates down the anterior thigh to the knee. She has increased pain in the right knee with driving and with gait initiation after prolonged sitting. No releiving factors. [facility] Medical History (Updated 11/29/23 @ 17:32 by Erwin Siddiqi MD) Lateral pain of right hip Positive colorectal cancer screening using Cologuard test Diabetes mellitus with hyperglycemia History of vitamin D deficiency Breast calcification, left Vitamin D deficiency Chronic insomnia Mixed dyslipidemia Surgical History (Updated 11/19/23 @ 10:27 by KEITH Martins) History of esophagogastroduodenoscopy (EGD) H/O colonoscopy Hx of tonsillectomy History of bunionectomy Family History Father Mental health disorder Cancer Social History (Updated 11/18/23 @ 12:57 by Nayeli Duque CMA) Household Members: None Housing: Apartment Alcohol intake: current Alcohol intake frequency: holidays/special occasions only Patient Tobacco Use Status: Current everyday Tobacco user Cigarette Packs Per Day: 0.5 Cigarettes Per Day: 10 Years Smoked: 30 +/- e-Cigarette/Vaping Use: Never Used service: No Current occupational status: employed 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 Severe right hip OA Assessment & Plan Assessment & Plan (1) Primary osteoarthritis of right hip: Code(s): M16.11 - Unilateral primary osteoarthritis, right hip Category: Medical Plan: Petra has severe OA of the right hip. I described treatment options. She is not enthusiastic about surgical intervention at this time. Injections might be helpful in the meantime. I explained the diagnosis and the treatment options. She will contact me if she would like to discuss further. Orders: Orders XR pelvis 1-2V 11/18/23 M25.559 - Pain in unspecified hip Coding Level of Care Code New Pt Level 4 (59253) Diagnoses Primary osteoarthritis of right hip M16.11
[2023-11-18 12:50] VITALS: BMI 30.6
== END 2023-11-18 13:26 | disposition home or self-care (01) ==
PROVIDERS: PCP Internal Medicine; Visit Provider Orthopaedic Surgery
DX: M16.11 Unilateral primary osteoarthritis, right hip (principal)
CPT/HCPCS: 99204

== ENCOUNTER 2023-11-20 09:10 | Outpatient (AMB) | payer OTHER, SELFPAY ==
[2023-11-20 09:16] VITALS: BP 142/67; PULSE 94; BMI 30.8
--- NOTE | 2023-11-20 09:16 | A.OFFVIS_ITS ---
Vital Signs 11/20/23 09:16 Height 5 ft 5 in Weight 185 lb 3.013 oz BMI 30.8 BP 142/67 H Blood Pressure Location Lt brachial Position Sitting Pulse 94 Intake Visit Reasons: s/p colonoscopy Intake Note: Petra presents to in office visit today s/p colonoscopy. CC: Patient states she is fine and denies having any new GI concerns today. Body Painter Required: No Allergies penicillin V Allergy (Unknown, Verified 11/20/23 09:18) hives HPI HPI s/p colonoscopy: Details: Assessment & Plan (1) Pre-op examination: Code(s): Z01.818 - Encounter for other preprocedural examination Category: Medical (2) Positive colorectal cancer screening using Cologuard test: Code(s): R19.5 - Other fecal abnormalities Category: Medical (3) Nausea and vomiting: Code(s): R11.2 - Nausea with vomiting, unspecified Category: Medical (4) Diabetes mellitus with hyperglycemia: Code(s): E11.65 - Type 2 diabetes mellitus with hyperglycemia Category: Medical Plan This is her 1st colonoscopy. She has been having trouble since the end of last year with sudden onset of what she describes as ?sulfur burps? followed by severe copious nausea and vomiting. This is happened about 5 times since the onset at the end of last year. It does not seem to be consistent and does not seem to be related to types of food eaten. She is a diabetic, and she is just started on Ozempic but the symptoms predate starting on this medication. She frequently suffers constipation sometimes only moving her bowels once a week. However she did start moving her bowels over the past couple days and she has had an exacerbation of her nausea and vomiting that persisted into today despite moving her bowels. She knows that the problem will start when she starts having the burping symptom. She occasionally has pain in the belly but this has not been a severe associated symptom. She has had trouble with N/V with past anesthesia and may need pre treatment. She denies any cardiac or respiratory problems. No ID problems. There is no known FHX of crc or polyps or esoph or stomach cancer. She lost 10 lbs recently via intentional dieting. ROV 8 weeks to eval taking miralax nightly. Orders: Orders EGD/[place] [facility] - GI Use Only 09/25/23 R11.2 - Nausea with vomiting, unspecified, E11.65 - Type 2 diabetes mellitus with hyperglycemia NM gastric emptying study 09/25/23 R11.2 - Nausea with vomiting, unspecified, E11.65 - Type 2 diabetes mellitus with hyperglycemia Medications: New peg 3350-electrolytes 236-22.74-6.74 -5.86 gram (Golytely) until fecal effluent is clear; do not exceed a total volume of 2,000 mL 240 mL PO Q10M 4,000 mL 0RF 1 day Z12.11 - Encounter for screening for malignant neoplasm of colon bisacodyl (Dulcolax (bisacodyl)) 10 mg (2 x 5 mg) PO BEDTIME 4 tabs 0RF 2 days GASTRIC EMPTYING STUDY 10/16/23 IMPRESSION: Normal 4-hour solid food gastric emptying study. EGD/COLONOSCOPY Larynx: Normal Esophagus: GE junction at 38 cms. No esophagitis, March's, stricture or ring. Empiric balloon dilation was performed with a 20 mm (60 F) CRE balloon x 60 secs. Stomach: Multiple 1-2 cms benign appearing polyps in the gastric fundus - biopsied. Moderate diffuse gastric erythema - biopsies were obtained from the antrum. Grade 2 flap valve on retroflexed examination of the cardia. Duodenum: Normal bulb and descending duodenum Biopsies were obtained from descending duodenum to check for celiac sprue Findings: Terminal Ileum: Not evaluated Cecum: Normal Ascending Colon: Normal Transverse Colon: Normal Descending Colon: Normal Sigmoid Colon: A 7-8 mm diminutive appearing polyp - removed with a cold biopsy. Moderate diverticulosis Rectum: Normal Ano-rectum: Normal Impression and Post Procedure Diagnosis: Endoscopy Findings: ESOPHAGUS: GE junction at 38 cms. No esophagitis, March's, stricture or ring. Empiric balloon dilation was performed with a 20 mm (60 F) CRE balloon x 60 secs. STOMACH: Gastritis and multiple gastric polyps DUODENUM: Normal - biopsied to check for celiac sprue Colonoscopy Findings: One small polyp was removed Moderate diverticulosis seen in the sigmoid colon Plan: Pt has a FU appointment on 11/20/23 with Caitlin Jaimes NP. Repeat Colonoscopy in 5 years if polyps are adenomatous and 10 year if polyps are hyperplastic. Above findings were reviewed with the patient and relevant handouts were given and the discharge area. Pt states nausea and vomiting has resolved since she stopped taking Ozempic BIOPSIES SHOWED: A. Small bowel, biopsy: Duodenal mucosa within normal limits; negative for celiac disease. B. Stomach, antrum, biopsy: Antral-type and oxyntic mucosa with mild chronic inactive inflammation; no Helicobacter organisms seen. C. Stomach, body, biopsy: Oxyntic mucosa with mild chronic inactive inflammation; no Helicobacter organisms seen. D. Stomach, polyp: Hyperplastic mucosal polyp with background mild chronic inactive inflammation; no Helicobacter organisms seen. E. Colon, sigmoid, polypectomy: Colonic mucosa with prominent lymphoid aggregate Letter sent advising repeat EGD in 1 year (FU of hyperplastic gastric polyps) and repeat colon in 10 years TODAY'S VISIT She discovered that has a problem with the nausea vomiting and abdominal pain was caused by her Ozempic. Once this medication was discontinued all of her symptoms ceased. She is quite happy with this. She is agreeable to a 10 year follow-up for colonoscopy. The procedure was well tolerated. The results were explained and the patient is agreeable to the follow-up interval as stated. The bowel pattern has returned to normal. Education was provided to tell any 1st degree relatives about their findings to be sure that they are screened by age 45. Educated that they will be put on a recall list when it is time for their repeat scope but should they move out of state or away from the hospital they will need to remember along with their primary to repeat the procedure in a timely fashion to avoid any adverse complications. Agreeable to 1 year EGD which will be due 09/2024 [facility] Medical History (Updated 11/20/23 @ 09:37 by TRISTIN Tolentino) Lateral pain of right hip Positive colorectal cancer screening using Cologuard test Diabetes mellitus with hyperglycemia History of vitamin D deficiency Breast calcification, left Vitamin D deficiency Chronic insomnia Mixed dyslipidemia Surgical History (Updated 11/19/23 @ 10:27 [facility] History of esophagogastroduodenoscopy (EGD) H/O colonoscopy Hx of tonsillectomy History of bunionectomy Family History Father Mental health disorder Cancer Social History (Updated 11/18/23 @ 12:57 by Nayeli Duque CMA) Household Members: None Housing: Apartment Alcohol intake: current Alcohol intake frequency: holidays/special occasions only Patient Tobacco Use Status: Current everyday Tobacco user Cigarette Packs Per Day: 0.5 Cigarettes Per Day: 10 Years Smoked: 30 +/- e-Cigarette/Vaping Use: Never Used service: No Current occupational status: employed 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 Cognitive needs: No Hearing needs: No Vision needs: No Review of Systems Const Denies fatigue, Denies fever(s), Denies night sweats, Denies poor appetite and Denies weight loss ENT Reports Normal hearing present, Denies dental pain, Denies dysphagia, Denies hearing loss, Denies mouth pain, Denies odynophagia, Denies throat swelling, Denies tongue swelling and Reports other (Dentition adequate) Card Reports no additional complaints Resp Reports no additional complaints GI Details: Denies abdominal pain, Denies melena, Denies bloating, Denies hematochezia, Denies constipation, Denies GI cramping, Denies dysphagia, Denies excessive flatus, Denies early satiety, Reports heartburn, Denies diarrhea, Denies nausea, Denies odynophagia, Denies vomiting and Denies hematemesis Skin/Breast Denies pruritus, Denies lesions, Denies rash and Denies jaundice Neuro Reports Normal hearing present and Denies Abnormal speech present Endo Denies fatigue Aller/Immun Denies throat swelling and Denies tongue swelling Physical Exam Vital Signs: Last Vital Signs Pulse 94 11/20/23 09:16 BP 142/67 H 11/20/23 09:16 BMI result Body Mass Index 30.8 Const General: cooperative, no acute distress, well developed and well groomed Nutritional Appearance: well nourished and obese Orientation/consciousness: oriented to person, oriented to place and oriented to time Limitations: No language barrier HEENT Head: Yes normocephalic and Yes atraumatic Eyes General: appearance normal, both eyes and all related structures Pupils: Equal, round and reactive pupils present Neck Neck: Yes normal visual inspection and Yes no lymphadenopathy Thyroid: Thyroid normal Resp Effort & Inspection: normal respiratory effort and able to speak in complete sentences Auscultation: clear to auscultation bilaterally Cardio Rate: regular rate Rhythm: regular rhythm Heart sounds: Normal, physiologic split S2 sound present Peripheral pulses: radial pulses present and posterior tibial pulses present GI Inspection: No distended, No Abdominal panniculus present and Yes obesity Palpation (GI): Soft to palpation, nontender, no guarding, not rigid and No hepatosplenomegaly present Percussion: Yes normal to percussion Auscultation: normal bowel sounds Rectal Exam - Female: deferred Skin General skin exam: no rashes or lesions noted, turgor normal, skin not dry, no jaundice, No spider nevi and no striae Rashes: no rashes Nails: normal Neuro General: oriented to person, oriented to place and oriented to time Cranial nerves: Yes Equal, round and reactive pupils present and Yes Normal hearing present Speech: No Abnormal speech present Extrem General: Yes normal to inspection, No clubbing, No cyanosis and No edema Psych Appearance: grossly normal and well kempt Mental Status: mental status grossly normal Speech and movement: Normal speech and movement present Affect: normal affect Attitude: cooperative Thought process: Normal thought process present and not confabulating Thought content: Normal thought content present Insight: Fair insight present (Psych) Judgement: Fair judgement present (Psych) Results Reviewed Results Reviewed: GASTRIC EMPTYING STUDY 10/16/23 IMPRESSION: Normal 4-hour solid food gastric emptying study. EGD/COLONOSCOPY Larynx: Normal Esophagus: GE junction at 38 cms. No esophagitis, March's, stricture or ring. Empiric balloon dilation was performed with a 20 mm (60 F) CRE balloon x 60 secs. Stomach: Multiple 1-2 cms benign appearing polyps in the gastric fundus - biopsied. Moderate diffuse gastric erythema - biopsies were obtained from the antrum. Grade 2 flap valve on retroflexed examination of the cardia. Duodenum: Normal bulb and descending duodenum Biopsies were obtained from descending duodenum to check for celiac sprue Findings: Terminal Ileum: Not evaluated Cecum: Normal Ascending Colon: Normal Transverse Colon: Normal Descending Colon: Normal Sigmoid Colon: A 7-8 mm diminutive appearing polyp - removed with a cold biopsy. Moderate diverticulosis Rectum: Normal Ano-rectum: Normal Impression and Post Procedure Diagnosis: Endoscopy Findings: ESOPHAGUS: GE junction at 38 cms. No esophagitis, March's, stricture or ring. Empiric balloon dilation was performed with a 20 mm (60 F) CRE balloon x 60 secs. STOMACH: Gastritis and multiple gastric polyps DUODENUM: Normal - biopsied to check for celiac sprue Colonoscopy Findings: One small polyp was removed Moderate diverticulosis seen in the sigmoid colon Plan: Pt has a FU appointment on 11/20/23 with Caitlin Jaimes NP. Repeat Colonoscopy in 5 years if polyps are adenomatous and 10 year if polyps are hyperplastic. Above findings were reviewed with the patient and relevant handouts were given and the discharge area. Pt states nausea and vomiting has resolved since she stopped taking Ozempic BIOPSIES SHOWED: A. Small bowel, biopsy: Duodenal mucosa within normal limits; negative for celiac disease. B. Stomach, antrum, biopsy: Antral-type and oxyntic mucosa with mild chronic inactive inflammation; no Helicobacter organisms seen. C. Stomach, body, biopsy: Oxyntic mucosa with mild chronic inactive inflammation; no Helicobacter organisms seen. D. Stomach, polyp: Hyperplastic mucosal polyp with background mild chronic inactive inflammation; no Helicobacter organisms seen. E. Colon, sigmoid, polypectomy: Colonic mucosa with prominent lymphoid aggregate Letter sent advising repeat EGD in 1 year (FU of hyperplastic gastric polyps) and repeat colon in 10 years Assessment & Plan Assessment & Plan (1) Gastric polyps: Code(s): K31.7 - Polyp of stomach and duodenum Category: Medical Plan She discovered that has a problem with the nausea vomiting and abdominal pain was caused by her Ozempic. Once this medication was discontinued all of her symptoms ceased. She is quite happy with this. She is agreeable to a 10 year follow-up for colonoscopy. The procedure was well tolerated. The results were explained and the patient is agreeable to the follow-up interval as stated. The bowel pattern has returned to normal. Education was provided to tell any 1st degree relatives about their findings to be sure that they are screened by age 45. Educated that they will be put on a recall list when it is time for their repeat scope but should they move out of state or away from the hospital they will need to remember along with their primary to repeat the procedure in a timely fashion to avoid any adverse complications. Agreeable to 1 year EGD which will be due 09/2024 she is advised to continue on her omeprazole 40 mg daily. Orders: Orders EGD with [facility] - GI Use Only Today K31.7 - Polyp of stomach and duodenum Coding Level of Care Code Est Pt Level 3 (44990) Diagnoses Gastric polyps K31.7
== END 2023-11-20 09:40 | disposition home or self-care (01) ==
PROVIDERS: PCP Internal Medicine; Visit Provider Nurse Practitioner
DX: K31.7 Polyp of stomach and duodenum (principal)
CPT/HCPCS: 99213

== ENCOUNTER → 2023-11-20 09:10 | Outpatient (BNVA) | payer OTHER, SELFPAY | PROVIDERS: PCP Internal Medicine; Visit Provider Nurse Practitioner ==

== ENCOUNTER 2024-01-24 11:53 | Outpatient (REF) | payer OTHER, SELFPAY ==
[2024-01-24 13:23] LABS: Estimated Average Glucose 143 mg/dL; Hemoglobin A1c % 6.6 % (<6.0)
[2024-01-24 13:33] LABS: Alanine Aminotransferase 48 U/L (0-31); Anion Gap 13 (12-20); Aspartate Amino Transferase 31 U/L (5-31); Blood Urea Nitrogen 9 mg/dL (9-16); Calcium 9.2 mg/dL (8.4-10.2); Carbon Dioxide 23 mmol/L (22-29); Chloride 106 mmol/L (96-108); Cholesterol 177 mg/dL (<200); Estimated Glomerular Filt Rate > 60; Glucose Fasting 134 mg/dL (60-99); HDL Cholesterol 39 mg/dL (>40); LDL Cholesterol Calculated 110 mg/dL (<100); Sodium 138 mmol/L (135-145); Triglycerides 140 mg/dL (<150)
[2024-01-24 13:55] LABS: Vitamin D 25-OH Total 40.7 ng/mL (>30)
[2024-01-24 14:01] LABS: Creatinine Urine 111.51 mg/dL; Microalbum/Creatinine Ratio Ur 9.8 ug/mg cr (<30)
== END 2024-01-24 11:54 | disposition home or self-care (01) ==
LOC: HO.HMGCLDS 11:53
PROVIDERS: PCP Internal Medicine; Visit Provider Internal Medicine
DX: F51.04 Psychophysiologic insomnia (principal); E78.2 Mixed hyperlipidemia; Z86.39 Personal history of other endocrine, nutritional and metabolic disease; E11.65 Type 2 diabetes mellitus with hyperglycemia
CPT/HCPCS: 36415; 80048; 80061; 82043; 82306; 82570; 83036; 84450; 84460

== ENCOUNTER 2024-01-25 14:25 | Outpatient (REF) | payer OTHER, SELFPAY ==
--- NOTE | ~2024-01-25 | MR_ITS ---
EXAMINATION: MR PELVIS WITHOUT CONTRAST CLINICAL INFORMATION: Right hip pain x2 years. COMPARISON: 04/21/2007 TECHNIQUE: Multiplanar MR imaging was obtained through the pelvis without contrast material on a 1.5 Beth magnet. FINDINGS: BONES AND ARTICULAR CARTILAGE: Severe osteoarthritis in the right hip is characterized by severe articular cartilage loss, subchondral cystic change, subchondral edema, and large marginal osteophytes. There is more moderate osteoarthritis in the left hip with cartilage loss, marginal osteophytes, subchondral cystic change, and cortical irregularity. Minimal osteoarthritis in the SI joints. Pubic symphysis is normal. There is mild degenerative disc disease in the lower lumbar spine at L5-S1 with associated facet arthropathy. No fracture or malalignment. No evidence of avascular necrosis or aggressive osseous lesions. MUSCLES AND TENDONS: Tendons are intact without appreciable tears. Mild gluteus minimus tendinosis bilaterally. Musculature is normal in signal intensity without significant atrophy or edema signal. JOINT FLUID AND BURSAE: Small bilateral hip joint effusions, right greater than left. No bursitis. INTRAPELVIC SOFT TISSUES: Low signal intensity rounded focus in the anterior aspect of the uterine body likely corresponds to a small fibroid. Small T2 hyperintense foci also raise the possibility of adenomyomatosis. No adenopathy. No acute intrapelvic findings. MR/MR pelvis wo con IMPRESSION: 1. Severe osteoarthritis in the right hip and more moderate osteoarthritis in the left hip. 2. Mild gluteus minimus tendinosis bilaterally. 3. Mild degenerative disc disease and facet arthropathy at L5-S1.
== END 2024-01-25 14:26 | disposition home or self-care (01) ==
LOC: HO.MRI 14:25
PROVIDERS: PCP Internal Medicine; Visit Provider Orthopaedic Surgery
DX: R93.7 Abnormal findings on diagnostic imaging of other parts of musculoskeletal system (principal)
CPT/HCPCS: 72195

== ENCOUNTER 2024-01-28 09:33 | Outpatient (AMB) | payer OTHER, SELFPAY ==
--- NOTE | 2024-01-28 10:03 | MHC.PC.OV ---
Vital Signs 01/28/24 10:20 Height 5 ft 5 in Weight 191 lb BMI 31.8 BP 124/86 Blood Pressure Location Lt brachial Position Sitting Pulse 102 H Pulse Source Pulse Oximeter Pulse Oximetry (%) 95 Oxygen Delivery Method Room Air Intake Visit Reasons: 3 month follow up - see comments Intake Note: Pt is here today for her 3 mo. f/u DM Allergies penicillin V Allergy (Unknown, Verified 01/28/24 10:41) hives Medication List - Last Reconciled 01/28/24 by Aimee Rudd MD alprazolam 0.5 mg PO BID PRN amitriptyline 50 mg PO BEDTIME 30 days duloxetine 120 mg PO DAILY flash glucose scanning reader ([employer] Leticia 2 [place]) As directed flash glucose sensor (FreeStyle Leticia 2 Sensor kit) Use to test blood sugar 4 times per day metformin ER 750 mg PO DAILY ondansetron HCl 8 mg PO Q12H PRN rosuvastatin 10 mg PO DAILY zolpidem 10 mg PO BEDTIME PRN Tobacco use date assessed: 01/28/24 Dental Screening Dental Screen Date: 01/28/24 Did you have a dental visit in the last 12 months?: Yes Did you have a dental problem in the last 6 months where you did not have access to dental care?: No Was dental information given to patient?: Patient has dentist HPI 3 month follow up - see comments HPI Details 48-year-old lady with diabetes mellitus, obesity, who has dyslipidemia , here today for her follow-up. She has been compliant with taking her medications, but unable to exercise much due to severe pain in hips, and right knee joint. She has been diagnosed with advanced osteoarthritis in her right hip, and currently being followed by Dr. Siddiqi who has recommended hip replacement if the pain persists and gets worse. Recent labs showed hemoglobin A1c at 6.6% but LDL cholesterol is not at goal of less than 100 mg/dL [facility] Medical History (Updated 01/28/24 @ 10:40 by Aimee Rudd MD) Type 2 diabetes mellitus without complication, without long-term current use of insulin Lateral pain of right hip Positive colorectal cancer screening using Cologuard test Diabetes mellitus with hyperglycemia History of vitamin D deficiency Breast calcification, left Vitamin D deficiency Chronic insomnia Mixed dyslipidemia Surgical History History of esophagogastroduodenoscopy (EGD) H/O colonoscopy Hx of tonsillectomy History of bunionectomy Family History Father Mental health disorder Cancer Social History Household Members: None Housing: Apartment Alcohol intake: current Alcohol intake frequency: holidays/special occasions only Patient Tobacco Use Status: Current everyday Tobacco user Cigarette Packs Per Day: 0.5 Cigarettes Per Day: 10 Years Smoked: 30 +/- Packs Per Year: 0 Packs per year/per ci.00 e-Cigarette/Vaping Use: Never Used service: No Current occupational status: employed 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 Cognitive needs: No Hearing needs: No Vision needs: No Questionnaire Thrive Questionnaire Date Thrive assessed: 01/28/24 I am a: Patient What is your living situation today?: I have a steady place to live Within the past 12 months, did the food you bought not last and you didn't have the money to get more?: Never true Within the past 12 months, did you worry whether your food would run out before you got money to buy more?: Never true Do you have trouble paying for medicines?: No Do you have trouble getting transportation to medical appointments?: No Do you have trouble paying your heating and electricity bill?: No Do you have trouble taking care of your child, family member or friend?: No Do you have trouble with day-to-day activities such as bathing, preparing meals, shopping, managing finances, etc.?: No Are you currently unemployed and looking for a job?: No Are you interested in more education?: No Please select the resources that you would like help with: Housing/Skilled Nursing Currently or been in a relationship where the following occur: No concerns reported THRIVE Score: 0 AUDIT C Alcohol Use Questionnaire (AUDIT-C) 1. How often do you have a drink containing alcohol?: Never Total Score: 0 ANANTH-7 AMB Questionnaire ANANTH-7 Date ANANTH - 7 assessed: 01/28/24 Feeling nervous, anxious, or on edge: 0 = Not at all Not being able to stop or control worryin = Not at all Worrying too much about different things: 0 = Not at all Trouble relaxin = Not at all Being so restless that it is hard to sit still: 0 = Not at all Becoming easily annoyed or irritable: 0 = Not at all Feeling afraid as if something awful might happen: 0 = Not at all Total ANANTH-7 score (0-4 normal; 5-9 mild; 10-14 moderate; 15-21 severe): 0 Source: Developed by Drs. Oscar Parrish, Ivis Redd, Francisco J Stuart and colleagues, with an educational kira from [employer]. ANANTH-7 Assessment Billing ANANTH-7 Assessment Tool: ANANTH-7 Assessment 04186 Review of Systems Const Reports no additional complaints Eyes Details: sees [facility] for her diabetes eye screen ENT Reports no additional complaints Card Denies chest pain, Denies chest pain with activity, Denies irregular heart rhythm, Denies lightheadedness and Denies dyspnea on exertion Resp Denies dyspnea on exertion GI Reports no additional complaints Musc Reports as per HPI Skin/Breast Denies breast pain, Denies breast mass and Denies rash Neuro Reports no additional complaints Psych Reports no additional complaints Physical exam (Primary Care) Vital Signs: Last Vital Signs Pulse 102 H 01/28/24 10:20 BP 124/86 01/28/24 10:20 Pulse Ox 95 01/28/24 10:20 Oxygen Delivery Method Room Air 01/28/24 10:20 BMI result Body Mass Index 31.8 BMI Assessment/Plan discussion: High BMI High, discussed plan: lifestyle, weight reduction, dietary and physical activity Tobacco/Smoking Status: Tobacco use Status Tobacco use date assessed 01/28/24 01/28/24 10:24 Patient Tobacco Use Status Current everyday Tobacco 01/28/24 10:03 e-Cigarette/Vaping Use Never Used 01/28/24 10:03 Are you ready to quit: No Tobacco cessation counseling provided: Yes Thrive Assessment: Date of Thrive Assessment Date Thrive assessed 01/28/24 01/28/24 10:24 Currently or been in a relationship where the following occur: No concerns reported Const Other: Alert oriented x3 no acute cardiorespiratory distress noted ambulatory with normal gait Nutritional Appearance: obese Orientation/consciousness: patient oriented x3 HENMT Other: Normocephalic atraumatic, Ears: external ears normal Face and sinus: Yes face symmetric Mouth: Normal oral and palatal mucosa present and moist mucous membranes Eyes General: appearance normal, both eyes and all related structures Neck Other: Supple, no lymphadenopathy per, thyroid gland nonpalpable Resp Auscultation: clear to auscultation bilaterally Cardio Other: S1-S2 present regular rate and rhythm GI Other: Normal bowel sounds, soft, nontender, no mass palpated Skin General skin exam: no rashes or lesions noted Neuro General: patient oriented x3, gait normal, tone normal, moves all extremities, Normal light touch and pain sensation, no focal motor deficits and CN's II-XI intact bilaterally Extrem General: Yes full ROM, Yes no joint enlargement, Yes no pedal edema, Yes no calf tenderness and Yes normal gait Psych Appearance: grossly normal Mental Status: mental status grossly normal Speech and movement: Normal speech and movement present Affect: normal affect Attitude: cooperative Thought process: Normal thought process present Results Reviewed Results Reviewed: Laboratory Tests 01/24/24 01/24/24 12:00 12:05 Estimat Average Glucose 143 Hemoglobin A1c % 6.6 H Urine Creatinine 111.51 Urine Microalbumin 11.0 Microalb/Creat Ratio 9.8 Name: Petra Rodriguez Age/Sex: 48/F : 1975 Unit#: [id number] Attend Dr: Aimee Rudd MD Re01/24/24 Status: DEP REF Location: [facility] Disch: SPEC : [id number] [place]: 01/24/24-1200 STATUS: COMP REQ : [id number] RECD: 01/24/24-[address]: Aimee Rudd MD COMP: 01/24/24-1355 ENTERED: 01/24/24-[address]: ORDERED: Met Prof Fast, AST, ALT, Lipid Panel, Vitamin D 25-OH Test Result Flag Reference Sodium 138 135-145 mmol/L Potassium 4.0 3.3-5.1 mmol/L CL 106 96-108 mmol/L CO2 23 22-29 mmol/L Gap 13 12-20 BUN 9 9-16 mg/dL Creat 0.70 0.5-1.4 mg/dL EGFR > 60 NOTE: For -[place] individuals, multiply the result by 1.210. Chronic Kidney Disease: Estimated GFR < 60 mL/min/1.73m2 Severe Kidney Disease: Estimated GFR < 15 mL/min/1.73m2 FBS 134 H 60-99 mg/dL A fasting glucose of 126 mg/dl or greater on more than one occasion is considered diagnostic of diabetes. CA 9.2 8.4-10.2 mg/dL AST (GOT) 31 5-31 U/L ALT (GPT) 48 H 0-31 U/L Triglyceride 140 <150 mg/dL Desirable Triglyceride: less than 150 mg/dL Borderline High Triglyceride 150-199 mg/dL High Triglyceride: 200-499 mg/dL Very High Triglyceride: greater than or equal to 5OO mg/dL Cholesterol 177 <200 mg/dL Desirable Cholesterol: less than 200 mg/dL Borderline High Cholesterol: 200-239 mg/dL High Cholesterol: greater than 239 mg/dL LDL Calculated 110 H <100 mg/dL Desirable LDL: less than 100 mg/dL Near Optimal/Above Optimal LDL: 110-129 mg/dL Borderline High LDL: 130-159 mg/dL High LDL: 160-189 mg/dL Very High LDL: greater than or equal to 190 mg/dL HDL 39 L >40 mg/dL Desirable HDL: greater than 40 mg/dL Note: This HDL assay may give artificially low results in patients with liver disease. Vit D 25-OH Tot 40.7 >30 ng/mL Health Based Reference Values* < 20 ng/mL Deficient 20-30 ng/mL Insufficient > 30 ng/mL Sufficient Assessment and Plan Assessment & Plan (1) Type 2 diabetes mellitus without complication, without long-term current use of insulin: Code(s): E11.9 - Type 2 diabetes mellitus without complications Plan: Sample freestyle Leticia 3 given lot [id number], expires 04/30/2024 strongly reminded to adhere to recommended diabetic diet, and get some form of exercise to lose weight. Continue with metformin ER 750 mg once a day . (2) Mixed dyslipidemia: Code(s): E78.2 - Mixed hyperlipidemia Plan: Increase rosuvastatin dose to 20 mg take 1 tablet every other day to begin with, recheck another fasting lipid panel in 3 months Orders: Orders Basic Metabolic Panel Fasting 04/26/24 E11.9 - Type 2 diabetes mellitus without complications, E78.2 - Mixed hyperlipidemia, Z86.39 - Personal history of other endocrine, nutritional and metabolic disease Hemoglobin A1c 04/26/24 E11.9 - Type 2 diabetes mellitus without complications, E78.2 - Mixed hyperlipidemia, Z86.39 - Personal history of other endocrine, nutritional and metabolic disease Lipid Panel 04/26/24 E11.9 - Type 2 diabetes mellitus without complications, E78.2 - Mixed hyperlipidemia, Z86.39 - Personal history of other endocrine, nutritional and metabolic disease Alanine Aminotransferase 04/26/24 E11.9 - Type 2 diabetes mellitus without complications, E78.2 - Mixed hyperlipidemia, Z86.39 - Personal history of other endocrine, nutritional and metabolic disease Aspartate Amino Transferase 04/26/24 E11.9 - Type 2 diabetes mellitus without complications, E78.2 - Mixed hyperlipidemia, Z86.39 - Personal history of other endocrine, nutritional and metabolic disease Vitamin D 25-OH Total 04/26/24 E11.9 - Type 2 diabetes mellitus without complications, E78.2 - Mixed hyperlipidemia, Z86.39 - Personal history of other endocrine, nutritional and metabolic disease Coding Level of Care Code Est Pt Level 4 (65822) Complex EM visit Add On G2211 Diagnoses Type 2 diabetes mellitus without complication, without long-term current use of insulin E11.9 Mixed dyslipidemia E78.2 Additional Codes ANANTH-7 Assessment Billing - ANANTH-7 Assessment Tool: ANANTH-7 Assessment 49989 ([id number])
[2024-01-28 10:20] VITALS: BP 124/86; PULSE 102; O2SAT 95; BMI 31.8
== END 2024-01-28 11:35 | disposition home or self-care (01) ==
PROVIDERS: PCP Internal Medicine; Visit Provider Internal Medicine
DX: E11.9 Type 2 diabetes mellitus without complications (principal); E78.2 Mixed hyperlipidemia
CPT/HCPCS: 99214

== ENCOUNTER 2024-04-09 13:25 | Outpatient (AMB) | payer OTHER, SELFPAY ==
[2024-04-09 13:31] VITALS: BMI 31.6
--- NOTE | 2024-04-09 13:31 | A.OFFVIS_ITS ---
Vital Signs 04/09/24 13:31 Height 5 ft 5 in Weight 190 lb BMI 31.6 Intake Visit Reasons: 6 mo f/u -Sleep Disorder Intake Note: Patient presents for 6 month follow up sleep disorder. patient still having issues with sleep Allergies penicillin V Allergy (Unknown, Verified 04/09/24 13:34) hives Medication List - Last Reconciled 04/09/24 by MARIA M Beasley alprazolam 0.5 mg PO BID PRN amitriptyline 50 mg PO BEDTIME 30 days duloxetine 120 mg PO DAILY flash glucose scanning reader (FreeStyle Leticia 2 [place]) As directed flash glucose sensor (FreeStyle Leticia 2 Sensor kit) Use to test blood sugar 4 times per day metformin ER 750 mg PO DAILY ondansetron HCl 8 mg PO Q12H PRN rosuvastatin 10 mg PO DAILY zolpidem 10 mg PO BEDTIME PRN HPI Comments Details: 48-yr-old female presents for f/u visit. Pt continues to have sleep difficulties. She is still prone to not being able to sleep well during the week. During the weekend, she will sleep all day. Longer sleep nights/days can then disrupt following sleep days. Amitriptyline and ambien do help w/ sleep initiation, but are taking longer to take effect, so taking earlier. She wonders if the amitriptyline may be making her sleep much longer on the weekends. She may not sleep as long on the weekend if she has to get up early to do something. She did try CBTi w/ Dr Peña, this helped to keep her consistent with her bedtime routine, but overall this was not a good fit for her. [facility] Medical History (Updated 01/28/24 @ 10:40 by Aimee Rudd MD) Type 2 diabetes mellitus without complication, without long-term current use of insulin Lateral pain of right hip Positive colorectal cancer screening using Cologuard test Diabetes mellitus with hyperglycemia History of vitamin D deficiency Breast calcification, left Vitamin D deficiency Chronic insomnia Mixed dyslipidemia Surgical History History of esophagogastroduodenoscopy (EGD) H/O colonoscopy Hx of tonsillectomy History of bunionectomy Family History Father Mental health disorder Cancer Social History Household Members: None Housing: Apartment Alcohol intake: current Alcohol intake frequency: holidays/special occasions only Patient Tobacco Use Status: Current everyday Tobacco user Cigarette Packs Per Day: 0.5 Cigarettes Per Day: 10 Years Smoked: 30 +/- e-Cigarette/Vaping Use: Never Used service: No Current occupational status: employed 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 Cognitive needs: No Hearing needs: No Vision needs: No Physical Exam Vital Signs: BMI result Body Mass Index 31.6 Const General: cooperative and no acute distress Orientation/consciousness: patient oriented x3 Resp Effort & Inspection: normal respiratory effort and able to speak in complete sentences Neuro General: patient oriented x3 Cognition (Neuro): normal cognition Psych Appearance: grossly normal Affect: normal affect Attitude: cooperative Thought process: Normal thought process present Assessment & Plan Assessment & Plan (1) Chronic insomnia: Code(s): F51.04 - Psychophysiologic insomnia Category: Medical (2) Sleep disorder: Comment: Snoring, fragmented sleep, excessive daytime sleepiness Code(s): G47.9 - Sleep disorder, unspecified Category: Medical (3) Hypersomnia: Code(s): G47.10 - Hypersomnia, unspecified Category: Medical Plan Continue Ambien 10mg qhs. Continue Amitriptyline 50mg qhs during weekdays. May try to reduce Amitriptyline to 25-37.5mg qhs on the weekends to see if this reduces excess daytime sleepiness. Pt has completed CBTi w/ local behavioral health clinic- she found the previous CBTi héctor more helpful. Will share updated behavioral sleep education w/ pt. ? Patient has previously failed Ramelteon, Lunesta, fluoxetine 10 mg, bupropion XL 150 mg (felt sick, anxiety, confusion), lorazepam 1 mg (stopped working), doxepin, quetiapine, Belsomra (sleep paralysis), escitalopram 5-15 mg, sertraline 50-150 mg (increased anxiety), venlafaxine 37.5 mg, clonazepam, Ramelteon. ? Future considerations: repeating MSLT off of all anti-depressant medications. ? f/u in 6 months or sooner prn Medications: New amitriptyline 25 - 50 mg (1 - 2 x 25 mg) PO BEDTIME 60 tabs 6RF 30 days Discontinued amitriptyline Discontinued Reason: Doctor's Order 50 mg PO BEDTIME 30 days 30 tabs 6RF Coding Level of Care Code Est Pt Level 4 (40004) Diagnoses Chronic insomnia F51.04 Sleep disorder G47.9 Hypersomnia G47.10
== END 2024-04-09 14:21 | disposition home or self-care (01) ==
PROVIDERS: PCP Internal Medicine; Visit Provider Nurse Practitioner Family
DX: F51.04 Psychophysiologic insomnia (principal); G47.9 Sleep disorder, unspecified; G47.10 Hypersomnia, unspecified
CPT/HCPCS: 99214

== ENCOUNTER → 2024-04-09 13:25 | Outpatient (BNVA) | payer OTHER, SELFPAY | PROVIDERS: PCP Internal Medicine; Visit Provider Nurse Practitioner Family ==

== ENCOUNTER 2024-05-04 09:25 | Outpatient (REF) | payer OTHER, SELFPAY ==
[2024-05-04 13:57] LABS: Estimated Average Glucose 140 mg/dL; Hemoglobin A1C 176.3376 umol/L; Hemoglobin A1c % 6.5 % (<6.0); Total Hemoglobin (HGBA1C) 3694.1439 umol/L
[2024-05-04 14:34] LABS: Alanine Aminotransferase 56 U/L (0-31); Anion Gap 17 (12-20); Aspartate Amino Transferase 73 U/L (5-31); Blood Urea Nitrogen 11 mg/dL (9-16); Calcium 9.8 mg/dL (8.4-10.2); Carbon Dioxide 23 mmol/L (22-29); Chloride 104 mmol/L (96-108); Cholesterol 318 mg/dL (<200); Estimated Glomerular Filt Rate > 60; Glucose Fasting 153 mg/dL (60-99); HDL Cholesterol 34 mg/dL (>40); LDL Cholesterol Calculated 217 mg/dL (<100); Potassium 4.4 mmol/L (3.3-5.1); Sodium 140 mmol/L (135-145); Triglycerides 339 mg/dL (<150)
[2024-05-04 14:37] LABS: Vitamin D 25-OH Total 30.7 ng/mL (>30)
== END 2024-05-04 09:26 | disposition home or self-care (01) ==
LOC: HO.HMGCLDS 09:25
PROVIDERS: PCP Internal Medicine; Visit Provider Internal Medicine
DX: E11.9 Type 2 diabetes mellitus without complications (principal); E78.2 Mixed hyperlipidemia; Z86.39 Personal history of other endocrine, nutritional and metabolic disease
CPT/HCPCS: 36415; 80048; 80061; 82306; 83036; 84450; 84460

== ENCOUNTER 2024-05-05 09:19 | Outpatient (AMB) | payer OTHER, SELFPAY ==
--- NOTE | 2024-05-05 09:34 | MHC.PC.OV ---
Vital Signs 05/05/24 09:35 Height 5 ft 5 in Weight 190 lb BMI 31.6 BP 122/80 Blood Pressure Location Lt brachial Position Sitting Pulse 103 H Pulse Source Pulse Oximeter Pulse Oximetry (%) 97 Oxygen Delivery Method Room Air Intake Visit Reasons: ANNUAL Intake Note: Pt is here today for her PE: Last mammogram 06/01/23, colonoscopy 10/21/23, papsmear 10/08/23 Allergies penicillin V Allergy (Unknown, Verified 05/05/24 09:56) hives Medication List - Last Reconciled 05/05/24 by Aimee Rudd MD alprazolam 0.5 mg PO BID PRN amitriptyline 25 - 50 mg (1 - 2 x 25 mg) PO BEDTIME 30 days duloxetine 120 mg PO DAILY flash glucose scanning reader ([employer] Leticia 2 [place]) As directed flash glucose sensor (FreeStyle Leticia 2 Sensor kit) Use to test blood sugar 4 times per day metformin ER 750 mg PO DAILY ondansetron HCl 8 mg PO Q12H PRN rosuvastatin 10 mg PO DAILY zolpidem 10 mg PO BEDTIME PRN Tobacco use date assessed: 05/05/24 Dental Screening Dental Screen Date: 05/05/24 Did you have a dental visit in the last 12 months?: Yes Did you have a dental problem in the last 6 months where you did not have access to dental care?: No Was dental information given to patient?: Patient has dentist HPI ANNUAL HPI Details 48 year-old lady with diabetes mellitus, obesity, dyslipidemia , chronic insomnia, severe osteoarthritis in right hip, seen by Dr. Siddiqi who has recommended hip replacement if pain persists and get worse, here today for her physical exam.. She is up-to-date with her screening mammogram, due again May 2024.. Up-to-date with her screening colonoscopy done 10/21/2023, repeat due again in 2033 Recent fasting labs done showed marked elevations in her LDL cholesterol now at 214 mg/dL, hemoglobin A1c at 6.5%. Has not been very compliant with her diet, no regular exercise. Has not been taking her rosuvastatin regularly. , [facility] Medical History (Updated 05/05/24 @ 10:32 by Aimee Rudd MD) Type 2 diabetes mellitus without complication, without long-term current use of insulin Lateral pain of right hip Positive colorectal cancer screening using Cologuard test Diabetes mellitus with hyperglycemia History of vitamin D deficiency Breast calcification, left Vitamin D deficiency Chronic insomnia Mixed dyslipidemia Surgical History History of esophagogastroduodenoscopy (EGD) H/O colonoscopy Hx of tonsillectomy History of bunionectomy Family History Father Mental health disorder Cancer Social History Household Members: None Housing: Apartment Alcohol intake: current Alcohol intake frequency: holidays/special occasions only Patient Tobacco Use Status: Current everyday Tobacco user Cigarette Packs Per Day: 0.5 Cigarettes Per Day: 10 Years Smoked: 30 +/- e-Cigarette/Vaping Use: Never Used service: No Current occupational status: employed 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 1. Little interest or pleasure in doing things: more than half the days 2. Feeling down, depressed, or hopeless: more than half the days 3. Trouble falling or staying asleep, or sleeping too much: more than half the days 4. Feeling tired or having little energy: more than half the days 5. Poor appetite or overeating: more than half the days 8. Moving or speaking so slowly that other people could have noticed. Or the opposite - being so fidgety or restless that you have been moving around a lot more than usual: not at all 9. Thoughts that you would be better off or of hurting yourself in some way: not at all Depression Screening Interpretation: Positive (Followed by psychiatry) Depression Screening Follow-up: Existing condition, In treatment and Community Mental Health Worker F/U Depression Screening Done: Yes 12864 - PHQ-9 Billing: Yes Source: Developed by Drs. Oscar Parrish, Ivis Redd, Francisco J Stuart and colleagues, with an educational kira from [employer]. Thrive Questionnaire Date Thrive assessed: 01/28/24 I am a: Patient What is your living situation today?: I have a steady place to live Within the past 12 months, did the food you bought not last and you didn't have the money to get more?: Never true Within the past 12 months, did you worry whether your food would run out before you got money to buy more?: Never true Do you have trouble paying for medicines?: No Do you have trouble getting transportation to medical appointments?: No Do you have trouble paying your heating and electricity bill?: No Do you have trouble taking care of your child, family member or friend?: No Do you have trouble with day-to-day activities such as bathing, preparing meals, shopping, managing finances, etc.?: No Are you currently unemployed and looking for a job?: No Are you interested in more education?: No Please select the resources that you would like help with: None Currently or been in a relationship where the following occur: No concerns reported THRIVE Score: 0 ANANTH-7 AMB Questionnaire ANANTH-7 Date ANANTH - 7 assessed: 01/28/24 Source: Developed by Drs. Oscar Parrish, Ivis Redd, Francisco J Stuart and colleagues, with an educational kira from [employer]. Review of Systems Const Reports no additional complaints Eyes Details: Goes to [facility] Reports requires corrective lenses ENT Reports no additional complaints Card Denies chest pain, Denies chest pain with activity, Denies irregular heart rhythm, Denies lightheadedness and Denies dyspnea on exertion Resp Denies dyspnea on exertion GI Reports no additional complaints Reports no additional complaints Musc Reports as per HPI Skin/Breast Denies breast pain, Denies breast mass and Denies rash Neuro Reports no additional complaints Psych Reports no additional complaints Endo Reports no additional complaints Andre/Lymph Reports no additional complaints Aller/Immun Reports no additional complaints Physical exam (Primary Care) Vital Signs: Last Vital Signs Pulse 103 H 05/05/24 09:35 BP 122/80 05/05/24 09:35 Pulse Ox 97 05/05/24 09:35 Oxygen Delivery Method Room Air 05/05/24 09:35 BMI result Body Mass Index 31.6 BMI Assessment/Plan discussion: High BMI High, discussed plan: lifestyle, weight reduction, dietary and physical activity Tobacco/Smoking Status: Tobacco use Status Tobacco use date assessed 05/05/24 05/05/24 09:44 Patient Tobacco Use Status Current everyday Tobacco 05/05/24 09:36 e-Cigarette/Vaping Use Never Used 05/05/24 09:36 Are you ready to quit: No Tobacco cessation counseling provided: Yes Depression Screening Interpretation: Positive (Followed by psychiatry) Depression Screening Follow-up: Existing condition, In treatment and Community Mental Health Worker F/U Thrive Assessment: Date of Thrive Assessment Date Thrive assessed 01/28/24 05/05/24 09:36 Currently or been in a relationship where the following occur: No concerns reported Const Other: Alert oriented x3 no acute cardiorespiratory distress noted ambulatory with normal gait Nutritional Appearance: obese Orientation/consciousness: patient oriented x3 HENMT Other: Normocephalic atraumatic, Ears: external ears normal Face and sinus: Yes face symmetric Mouth: Normal oral and palatal mucosa present and moist mucous membranes Eyes General: appearance normal, both eyes and all related structures Neck Other: Supple, no lymphadenopathy per, thyroid gland nonpalpable Chest Breast/axilla palpation: normal palpation of the breasts Resp Auscultation: clear to auscultation bilaterally Cardio Other: S1-S2 present regular rate and rhythm GI Other: Normal bowel sounds, soft, nontender, no mass palpated General: Yes no CVA tenderness Back/Spine/Pelvis Back: no CVA tenderness and No back tenderness Skin General skin exam: no rashes or lesions noted Neuro General: patient oriented x3, gait normal, tone normal, moves all extremities, Normal light touch and pain sensation, no focal motor deficits and CN's II-XI intact bilaterally Extrem General: Yes full ROM, Yes no joint enlargement, Yes no pedal edema, Yes no calf tenderness and Yes normal gait Psych Appearance: grossly normal Mental Status: mental status grossly normal Speech and movement: Normal speech and movement present Affect: normal affect Attitude: cooperative Thought process: Normal thought process present Results Reviewed Results Reviewed: Laboratory Tests 05/04/24 09:50 Estimat Average Glucose 140 Hemoglobin A1c % 6.5 H Name: Petra Rodriguez Age/Sex: 48/F : 1975 Unit#: [id number] Attend Dr: Aimee Rudd MD Re05/04/24 Status: DEP REF Location: [facility] Disch: SPEC : [id number] [place]: 05/04/24 STATUS: COMP REQ : [id number] RECD: 05/04/[address]: Aimee Rudd MD COMP: 05/04/24 ENTERED: 05/04/24 [facility] DR: ORDERED: Met Prof Fast, AST, ALT, Lipid Panel, Vitamin D 25-OH Test Result Flag Reference Sodium 140 135-145 mmol/L Potassium 4.4 3.3-5.1 mmol/L CL 104 96-108 mmol/L CO2 23 22-29 mmol/L Gap 17 12-20 BUN 11 9-16 mg/dL Creat 0.82 0.5-1.4 mg/dL EGFR > 60 NOTE: For -[place] individuals, multiply the result by 1.210. Chronic Kidney Disease: Estimated GFR < 60 mL/min/1.73m2 Severe Kidney Disease: Estimated GFR < 15 mL/min/1.73m2 FBS 153 H 60-99 mg/dL A fasting glucose of 126 mg/dl or greater on more than one occasion is considered diagnostic of diabetes. CA 9.8 # 8.4-10.2 mg/dL AST (GOT) 73 H 5-31 U/L ALT (GPT) 56 H 0-31 U/L Triglyceride 339 H <150 mg/dL Desirable Triglyceride: less than 150 mg/dL Borderline High Triglyceride 150-199 mg/dL High Triglyceride: 200-499 mg/dL Very High Triglyceride: greater than or equal to 5OO mg/dL Cholesterol 318 H <200 mg/dL Desirable Cholesterol: less than 200 mg/dL Borderline High Cholesterol: 200-239 mg/dL High Cholesterol: greater than 239 mg/dL LDL Calculated 217 H <100 mg/dL Desirable LDL: less than 100 mg/dL Near Optimal/Above Optimal LDL: 110-129 mg/dL Borderline High LDL: 130-159 mg/dL High LDL: 160-189 mg/dL Very High LDL: greater than or equal to 190 mg/dL HDL 34 L >40 mg/dL Desirable HDL: greater than 40 mg/dL Note: This HDL assay may give artificially low results in patients with liver disease. Vit D 25-OH Tot 30.7 >30 ng/mL Health Based Reference Values* < 20 ng/mL Deficient 20-30 ng/mL Insufficient > 30 ng/mL Sufficient Laboratory Tests 01/24/24 12:05 Microalb/Creat Ratio 9.8 Coding Level of Care Code Est Pt Prev Care 40-64y(62588) Diagnoses Annual visit for general adult medical examination with abnormal findings Z00. Type 2 diabetes mellitus without complication, without long-term current use of insulin E11.9 Mixed dyslipidemia E78.2 Chronic insomnia F51.04 Primary osteoarthritis of right hip M16.11 Assessment & Plan Assessment & Plan (1) Annual visit for general adult medical examination with abnormal findings: Code(s): Z00.01 - Encounter for general adult medical examination with abnormal findings Plan: Recent fasting lab results reviewed with patient.. Recommended dental visit every 6 months and regular eye exams, at least every 2 years. Take adequate calcium in diet and vitamin-D 3 at 2000 IU per cap once a day, in addition to weight-bearing exercises to help maintain good muscle tone and weight control. Instructed to do self-breast exam, and recommended to get yearly mammogram, starting at age 40. Immunization information provided: Yearly flu vaccine, shingles vaccine starting at age 50, at age 65 to start getting Prevnar 13 followed 1 year later by Pneumovax 23. Up-to-date with her screening colonoscopy and cervical cancer screening (2) Type 2 diabetes mellitus without complication, without long-term current use of insulin: Code(s): E11.9 - Type 2 diabetes mellitus without complications Category: Medical Plan: Latest hemoglobin A1c is at 6.5%. Continue with metformin ER 750 mg once a day. Continue monitoring blood sugar at least once or twice a week and keep a log of the readings. Reinforced importance of following recommended diet and getting regular exercise at least 30 minutes of cardio exercise daily. . Reminded to get her diabetes retinopathy screening done up-to-date with her tetanus booster and Prevnar 20. Reminded patient to get her yearly flu shot and COVID booster (3) Mixed dyslipidemia: Code(s): E78.2 - Mixed hyperlipidemia Category: Medical Plan: Has markedly elevated LDL cholesterol and triglycerides, seen on recent fasting labs done.. Stressed importance of taking rosuvastatin 10 mg daily, in addition to adherence to healthy eating habits and getting regular exercise. Will repeat levels again in 3 months (4) Chronic insomnia: Code(s): F51.04 - Psychophysiologic insomnia Category: Medical Plan: Followed By psychiatry. (5) Primary osteoarthritis of right hip: Code(s): M16.11 - Unilateral primary osteoarthritis, right hip Category: Medical Plan: Followed by Orthopedics Orders: Orders Basic Metabolic Panel Fasting 08/01/24 E11.9 - Type 2 diabetes mellitus without complications, E78.2 - Mixed hyperlipidemia, Z00.01 - Encounter for general adult medical examination with abnormal findings Hemoglobin A1c 08/01/24 E11.9 - Type 2 diabetes mellitus without complications, E78.2 - Mixed hyperlipidemia, Z00.01 - Encounter for general adult medical examination with abnormal findings Alanine Aminotransferase 08/01/24 E11.9 - Type 2 diabetes mellitus without complications, E78.2 - Mixed hyperlipidemia, Z00.01 - Encounter for general adult medical examination with abnormal findings Aspartate Amino Transferase 08/01/24 E11.9 - Type 2 diabetes mellitus without complications, E78.2 - Mixed hyperlipidemia, Z00.01 - Encounter for general adult medical examination with abnormal findings Creatine Kinase Total 08/01/24 E11.9 - Type 2 diabetes mellitus without complications, E78.2 - Mixed hyperlipidemia, Z00.01 - Encounter for general adult medical examination with abnormal findings Lipid Panel 08/01/24 E11.9 - Type 2 diabetes mellitus without complications, E78.2 - Mixed hyperlipidemia, Z00.01 - Encounter for general adult medical examination with abnormal findings Medications: New blood-glucose meter (FreeStyle Lite Meter kit) Check fasting blood sugar once a day before meal 1 ea 0RF E11.9 - Type 2 diabetes mellitus without complications blood sugar diagnostic (FreeStyle Lite Strips) Check fasting blood sugar once a day before meal 50 ea 5RF E11.9 - Type 2 diabetes mellitus without complications lancets (Accu-Chek Softclix Lancets) As directed 100 ea 3RF E11.9 - Type 2 diabetes mellitus without complications
[2024-05-05 09:35] VITALS: BP 122/80; PULSE 103; O2SAT 97; BMI 31.6
== END 2024-05-05 10:32 | disposition home or self-care (01) ==
LOC: HO.HMCC 09:20
PROVIDERS: PCP Internal Medicine; Visit Provider Internal Medicine
DX: Z00.01 Encounter for general adult medical examination with abnormal findings (principal); E11.9 Type 2 diabetes mellitus without complications; E78.2 Mixed hyperlipidemia; F51.04 Psychophysiologic insomnia; M16.11 Unilateral primary osteoarthritis, right hip

== ENCOUNTER 2024-06-06 08:52 | Outpatient (REF) | payer OTHER, SELFPAY ==
--- NOTE | ~2024-06-06 | MM_ITS ---
EXAMINATION: MM SCREENING DIGITAL BREAST TOMOSYNTHESIS, BILATERAL CLINICAL INFORMATION: Screening. Asymptomatic. COMPARISON: Mammography: Comparison is made with available priors TECHNIQUE: Digital breast mammography with tomosynthesis is performed in both the craniocaudal and mediolateral oblique views along with computer-aided detection (CAD). FINDINGS: The breasts are heterogeneously dense, which may obscure small masses (ACR BI-RADS breast composition Category c). Bilateral circumscribed oval masses which wax and wane some are demonstrated to be simple cysts on prior ultrasounds consistent with benign fibrocystic changes. Left marker clip from previous benign needle core biopsy. There are no significant masses, abnormal calcifications, or other abnormalities. MM/MM tomosynthesis screening BI IMPRESSION: No mammographic evidence of malignancy. ASSESSMENT: BI-RADS BI-RADS 2 - Benign Findings RECOMMENDATION: Routine annual mammography screening. 1 year F/U This examination should not preclude the clinical evaluation of a suspicious palpable abnormality. This patient's information was entered into a reminder system with a target due date for their next mammogram. Electronically signed by: Chandrika Bah DO 06/12/2024 01:12 PM [facility]
== END 2024-06-06 08:53 | disposition home or self-care (01) ==
LOC: HO.MAMMO 08:52
PROVIDERS: PCP Internal Medicine; Visit Provider Internal Medicine
DX: Z12.31 Encounter for screening mammogram for malignant neoplasm of breast (principal)
CPT/HCPCS: 77063; 77067

== ENCOUNTER → 2024-06-06 09:00 | Outpatient (BNV) | payer OTHER, SELFPAY | PROVIDERS: PCP Internal Medicine; Visit Provider Internal Medicine | DX: Z12.31 Encounter for screening mammogram for malignant neoplasm of breast (principal) | CPT/HCPCS: 77063; 77067 ==

== ENCOUNTER 2024-08-03 08:12 | Outpatient (REF) | payer OTHER, SELFPAY ==
[2024-08-03 10:54] LABS: Alanine Aminotransferase 47 U/L (0-31); Anion Gap 18 (12-20); Aspartate Amino Transferase 68 U/L (5-31); Blood Urea Nitrogen 11 mg/dL (9-16); Carbon Dioxide 22 mmol/L (22-29); Chloride 103 mmol/L (96-108); Cholesterol 209 mg/dL (<200); Estimated Glomerular Filt Rate > 60; Glucose Fasting 190 mg/dL (60-99); HDL Cholesterol 27 mg/dL (>40); LDL Cholesterol Calculated 107 mg/dL (<100); Potassium 3.6 mmol/L (3.3-5.1); Sodium 139 mmol/L (135-145); Triglycerides 378 mg/dL (<150)
[2024-08-03 11:11] LABS: Estimated Average Glucose 171 mg/dL; Hemoglobin A1C 221.2829 umol/L; Hemoglobin A1c % 7.6 % (<6.0); Total Hemoglobin (HGBA1C) 3692.6265 umol/L
== END 2024-08-03 08:13 | disposition home or self-care (01) ==
LOC: HO.HMGCLDS 08:12
PROVIDERS: PCP Internal Medicine; Visit Provider Internal Medicine
DX: Z00.01 Encounter for general adult medical examination with abnormal findings (principal); E78.2 Mixed hyperlipidemia; E11.9 Type 2 diabetes mellitus without complications
CPT/HCPCS: 36415; 80048; 80061; 82550; 83036; 84450; 84460

== ENCOUNTER 2024-08-04 08:53 | Outpatient (AMB) | payer OTHER, SELFPAY ==
[2024-08-04 08:54] VITALS: BP 136/84; PULSE 96; RESP 16; TEMP 37; O2SAT 98; BMI 31.9
--- NOTE | 2024-08-04 08:54 | MHC.PC.OV ---
Vital Signs 08/04/24 08:54 Height 5 ft 5 in Weight 192 lb BMI 31.9 BP 136/84 Blood Pressure Location Lt brachial Position Sitting Respiration 16 Pulse 96 Pulse Source Pulse Oximeter Temp 98.6 F Temp Source Oral Pulse Oximetry (%) 98 Oxygen Delivery Method Room Air Intake Visit Reasons: 3 Months f/u Intake Note: pt is here for 3 mon f.up Toe Stapler Required: No Accompanied by: Self / Same As Patient Allergies penicillin V Allergy (Unknown, Verified 08/04/24 09:43) hives Medication List - Last Reconciled 08/04/24 by Aimee Rudd MD alprazolam 0.5 mg PO BID PRN amitriptyline 25 - 50 mg (1 - 2 x 25 mg) PO BEDTIME 30 days blood sugar diagnostic (FreeStyle Lite Strips) Check fasting blood sugar once a day before meal blood-glucose meter (FreeStyle Lite Meter kit) Check fasting blood sugar once a day before meal duloxetine 120 mg PO DAILY flash glucose scanning reader (FreeStyle Leticia 2 [place]) As directed flash glucose sensor (FreeStyle Leticia 2 Sensor kit) Use to test blood sugar 4 times per day lancets (Accu-Chek Softclix Lancets) As directed metformin ER 750 mg PO DAILY ondansetron HCl 8 mg PO Q12H PRN rosuvastatin 10 mg PO DAILY zolpidem 10 mg PO BEDTIME PRN Tobacco use date assessed: 08/04/24 Dental Screening Dental Screen Date: 08/04/24 Did you have a dental visit in the last 12 months?: Yes Did you have a dental problem in the last 6 months where you did not have access to dental care?: No Was dental information given to patient?: Patient has dentist HPI 3 Months f/u HPI Details - The patient is a 49-year-old female presenting iabetes mellitusfor follow-up of diabetes mellitus and dyslipidemia. -Recent lab Results showed an increase in her HbA1c and triglycerides, which she attributes to her stopping Ozempic. her diabetes mellitus was well controlled when she was taking Ozempic 0.25 mg once a week together with metformin, but once she increased the dose to 0.5 mg once weekly, she started having nausea, vomiting, early satiety,bloating, and stomach pain which resolved after discontinuing medication - recent fasting labs also showedElevated liver enzymes alongside triglycerides, with contributing factors including workplace stress affecting diet. - up-to-date with diabetes retinopathy screening, goes to [facility], last seen 06/19/2024 with no retinopathy seen [facility] Medical History (Updated 08/04/24 @ 09:55 by Aimee Rudd MD) Obesity Diabetes mellitus with hyperglycemia, without long-term current use of insulin Type 2 diabetes mellitus without complication, without long-term current use of insulin Lateral pain of right hip Positive colorectal cancer screening using Cologuard test Diabetes mellitus with hyperglycemia History of vitamin D deficiency Breast calcification, left Vitamin D deficiency Chronic insomnia Mixed dyslipidemia Surgical History History of esophagogastroduodenoscopy (EGD) H/O colonoscopy Hx of tonsillectomy History of bunionectomy Family History Father Mental health disorder Cancer Social History Household Members: None Housing: Apartment Alcohol intake: current Alcohol intake frequency: holidays/special occasions only Patient Tobacco Use Status: Current everyday Tobacco user Cigarette Packs Per Day: 0.5 Cigarettes Per Day: 10 Years Smoked: 30 +/- e-Cigarette/Vaping Use: Never Used service: No Current occupational status: employed 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 1. Little interest or pleasure in doing things: more than half the days 2. Feeling down, depressed, or hopeless: more than half the days 3. Trouble falling or staying asleep, or sleeping too much: more than half the days 4. Feeling tired or having little energy: more than half the days 5. Poor appetite or overeating: more than half the days 8. Moving or speaking so slowly that other people could have noticed. Or the opposite - being so fidgety or restless that you have been moving around a lot more than usual: not at all 9. Thoughts that you would be better off or of hurting yourself in some way: not at all Depression Screening Interpretation: Positive (Followed by psychiatry) Depression Screening Follow-up: Existing condition, In treatment and Community Mental Health Worker F/U Depression Screening Done: Yes 14627 - PHQ-9 Billing: Yes Source: Developed by Drs. Oscar Parrish, Ivis Redd, Francisco J Stuart and colleagues, with an educational kira from [employer]. Thrive Questionnaire Date Thrive assessed: 08/04/24 I am a: Patient What is your living situation today?: I choose not to answer this question Within the past 12 months, did the food you bought not last and you didn't have the money to get more?: I choose not to answer this question Within the past 12 months, did you worry whether your food would run out before you got money to buy more?: I choose not to answer this question Do you have trouble paying for medicines?: I choose not to answer this question Do you have trouble getting transportation to medical appointments?: I choose not to answer this question Do you have trouble paying your heating and electricity bill?: I choose not to answer this question Do you have trouble taking care of your child, family member or friend?: I choose not to answer this question Do you have trouble with day-to-day activities such as bathing, preparing meals, shopping, managing finances, etc.?: I choose not to answer this question Are you currently unemployed and looking for a job?: I choose not to answer this question Are you interested in more education?: I choose not to answer this question Please select the resources that you would like help with: None Currently or been in a relationship where the following occur: I choose not to answer THRIVE Score: 0 AUDIT C Alcohol Use Questionnaire (AUDIT-C) 1. How often do you have a drink containing alcohol?: Never 3. How often do you have six or more drinks on one occasion?: Never Total Score: 0 Score Reviewed/Action Taken: Yes ANANTH-7 AMB Questionnaire ANANTH-7 Date ANANTH - 7 assessed: 08/04/24 Feeling nervous, anxious, or on edge: 0 = Not at all Not being able to stop or control worryin = Not at all Worrying too much about different things: 0 = Not at all Trouble relaxin = Not at all Being so restless that it is hard to sit still: 0 = Not at all Becoming easily annoyed or irritable: 0 = Not at all Feeling afraid as if something awful might happen: 0 = Not at all Total ANANTH-7 score (0-4 normal; 5-9 mild; 10-14 moderate; 15-21 severe): 0 Source: Developed by Drs. Oscar Parrish, Ivis Redd, Francisco J Staurt and colleagues, with an educational kira from [employer]. ANANTH-7 Assessment Billing ANANTH-7 Assessment Tool: ANANTH-7 Assessment 56544 Review of Systems Const Reports no additional complaints Eyes Details: Goes to [facility] Reports requires corrective lenses ENT Reports no additional complaints Card Denies chest pain, Denies chest pain with activity, Denies irregular heart rhythm, Denies lightheadedness and Denies dyspnea on exertion Resp Denies dyspnea on exertion GI Reports no additional complaints Reports no additional complaints Musc Details: Occasional pain in right hip joint, worse with walking for extended periods of time Skin/Breast Denies breast pain, Denies breast mass and Denies rash Neuro Reports no additional complaints Psych Reports no additional complaints Endo Reports no additional complaints Andre/Lymph Reports no additional complaints Aller/Immun Reports no additional complaints Physical exam (Primary Care) Vital Signs: Last Vital Signs Temp 98.6 F 08/04/24 08:54 Pulse 96 08/04/24 08:54 Resp 16 08/04/24 08:54 BP 136/84 08/04/24 08:54 Pulse Ox 98 08/04/24 08:54 Oxygen Delivery Method Room Air 08/04/24 08:54 BMI result Body Mass Index 31.9 BMI Assessment/Plan discussion: High BMI High, discussed plan: lifestyle, weight reduction, dietary and physical activity Tobacco/Smoking Status: Tobacco use Status Tobacco use date assessed 08/04/24 08/04/24 08:56 Patient Tobacco Use Status Current everyday Tobacco 08/04/24 08:56 e-Cigarette/Vaping Use Never Used 08/04/24 08:56 Are you ready to quit: No Tobacco cessation counseling provided: Yes Depression Screening Interpretation: Positive (Followed by psychiatry) Depression Screening Follow-up: Existing condition, In treatment and Community Mental Health Worker F/U Thrive Assessment: Date of Thrive Assessment Date Thrive assessed 08/04/24 08/04/24 09:01 Currently or been in a relationship where the following occur: I choose not to answer Const Other: Alert oriented x3 no acute cardiorespiratory distress noted ambulatory with normal gait Nutritional Appearance: obese Orientation/consciousness: patient oriented x3 HENMT Other: Normocephalic atraumatic, Ears: external ears normal Face and sinus: Yes face symmetric Mouth: Normal oral and palatal mucosa present and moist mucous membranes Eyes General: appearance normal, both eyes and all related structures Neck Other: Supple, no lymphadenopathy per, thyroid gland nonpalpable Resp Auscultation: clear to auscultation bilaterally Cardio Other: S1-S2 present regular rate and rhythm GI Other: Normal bowel sounds, soft, nontender, no mass palpated Neuro General: patient oriented x3, gait normal, tone normal, moves all extremities, Normal light touch and pain sensation, no focal motor deficits and CN's II-XI intact bilaterally Extrem General: Yes full ROM, Yes no joint enlargement, Yes no pedal edema, Yes no calf tenderness and Yes normal gait Results Reviewed Results Reviewed: Name: Petra Rodriguez Age/Sex: 49/F : 1975 Unit#: [id number] Attend Dr: Aimee Rudd MD Re08/03/24 Status: DEP REF Location: [facility] Disch: SPEC : [id number] [place]: 08/03/24 STATUS: COMP REQ : [id number] RECD: 08/03/24-[address]: Aimee Rudd MD COMP: 08/03/24 ENTERED: 08/03/[address]: ORDERED: Met Prof Fast, AST, ALT, CK Total, Lipid Panel Test Result Flag Reference Sodium 139 135-145 mmol/L Potassium 3.6 3.3-5.1 mmol/L CL 103 96-108 mmol/L CO2 22 22-29 mmol/L Gap 18 12-20 BUN 11 9-16 mg/dL Creat 0.70 0.5-1.4 mg/dL eGFR > 60 Chronic Kidney Disease: Estimated GFR < 60 mL/min/1.73m2 Severe Kidney Disease: Estimated GFR < 15 mL/min/1.73m2 FBS 190 H 60-99 mg/dL A fasting glucose of 126 mg/dl or greater on more than one occasion is considered diagnostic of diabetes. CA 9.0 # 8.4-10.2 mg/dL AST (GOT) 68 H 5-31 U/L ALT (GPT) 47 H 0-31 U/L CK Total 46 26-140 U/L Triglyceride 378 H <150 mg/dL Desirable Triglyceride: less than 150 mg/dL Borderline High Triglyceride 150-199 mg/dL High Triglyceride: 200-499 mg/dL Very High Triglyceride: greater than or equal to 5OO mg/dL Cholesterol 209 H <200 mg/dL Desirable Cholesterol: less than 200 mg/dL Borderline High Cholesterol: 200-239 mg/dL High Cholesterol: greater than 239 mg/dL LDL Calculated 107 H <100 mg/dL Desirable LDL: less than 100 mg/dL Near Optimal/Above Optimal LDL: 110-129 mg/dL Borderline High LDL: 130-159 mg/dL High LDL: 160-189 mg/dL Very High LDL: greater than or equal to 190 mg/dL HDL 27 L >40 mg/dL Desirable HDL: greater than 40 mg/dL Note: This HDL assay may give artificially low results in patients with liver disease. Coding Level of Care Code Est Pt Level 4 (64500) Complex EM visit Add On G2211 Diagnoses Diabetes mellitus with hyperglycemia, without long-term current use of insulin E11.65 Mixed dyslipidemia E78.2 Obesity E66.9 Additional Codes ANANTH-7 Assessment Billing - ANANTH-7 Assessment Tool: ANANTH-7 Assessment 66818 ([id number]) PHQ-9 - 80813 - PHQ-9 Billing: Yes ([id number]) Assessment & Plan Assessment & Plan (1) Diabetes mellitus with hyperglycemia, without long-term current use of insulin: Code(s): E11.65 - Type 2 diabetes mellitus with hyperglycemia Category: Medical (2) Mixed dyslipidemia: Code(s): E78.2 - Mixed hyperlipidemia Category: Medical (3) Obesity: Code(s): E66.9 - Obesity, unspecified Category: Medical Plan The plan includes initiating Mounjaro at 2.5 mg dictate subcutaneously once a week, in conjunction with metformin ER 750 mg once a day, while monitoring for adverse effects, particularly gastrointestinal symptoms. Risks of pancreatitis , gastroparesis, and gallbladder issues were mentioned, alongside the potential benefits of improved glucose control and weight management.. Additionally, increased dose of rosuvastatin to 10 mg once a day. Monitoring and lifestyle modifications are essential, addressing elevated triglycerides and liver enzymes. Stress management techniques emphasized . We addressed lifestyle factors affecting diabetes management, focusing on nutritional strategies and stress reduction. Follow-up blood tests and a telehealth check-in were scheduled. Patient was informed and verbally consented to the use of an ambient scribe for clinic note documentation during this visit. Medications: Cj Zendejas (tirzepatide) Has tried Ozempic but unable to tolerate the higher dose 2.5 mg (0.5 mL) subcut QWEEK 30 days 2 mL 1RF NS E11.65 - Type 2 diabetes mellitus with hyperglycemia, E66.9 - Obesity, unspecified, E78.2 - Mixed hyperlipidemia Refilled rosuvastatin 10 mg PO DAILY 90 tabs 2RF E78.2 - Mixed hyperlipidemia
== END 2024-08-04 10:06 | disposition home or self-care (01) ==
PROVIDERS: PCP Internal Medicine; Visit Provider Internal Medicine
DX: E11.65 Type 2 diabetes mellitus with hyperglycemia (principal); E78.2 Mixed hyperlipidemia; E66.9 Obesity, unspecified; Z68.31 Body mass index [BMI] 31.0-31.9, adult

== ENCOUNTER → 2024-08-04 08:53 | Outpatient (BNVA) | payer OTHER, SELFPAY | PROVIDERS: PCP Internal Medicine; Visit Provider Internal Medicine | DX: E11.65 Type 2 diabetes mellitus with hyperglycemia (principal); E78.2 Mixed hyperlipidemia; E66.9 Obesity, unspecified; Z68.31 Body mass index [BMI] 31.0-31.9, adult | CPT/HCPCS: 96127 ==

== ENCOUNTER 2024-10-28 13:23 | Outpatient (AMB) | payer OTHER, SELFPAY ==
[2024-10-28 13:33] VITALS: BP 148/90; PULSE 97; O2SAT 97; BMI 33.1
--- NOTE | 2024-10-28 13:33 | MHC.OFFVIS ---
Vital Signs 10/28/24 13:33 Height 5 ft 5 in Weight 199 lb BMI 33.1 BP 148/90 H Blood Pressure Location Lt brachial Position Sitting Pulse 97 Pulse Source Pulse Oximeter Pulse Oximetry (%) 97 Oxygen Delivery Method Room Air Intake Visit Reasons: Follow Up Intake Note: Patient presents for follow up sleep difficulties and bad insomnia. Upper Cutter Machine Required: No Accompanied by: Self / Same As Patient Allergies penicillin V Allergy (Unknown, Verified 10/28/24 13:35) hives Medication List - Last Reconciled 10/28/24 by MAIRA M Beasley alprazolam 0.5 mg PO BID PRN amitriptyline 25 - 50 mg (1 - 2 x 25 mg) PO BEDTIME 30 days blood sugar diagnostic (FreeStyle Lite Strips) Check fasting blood sugar once a day before meal blood-glucose meter (FreeStyle Lite Meter kit) Check fasting blood sugar once a day before meal duloxetine 120 mg PO DAILY flash glucose scanning reader (ReaMetrixStyle Leticia 2 [place]) As directed flash glucose sensor (FreeStyle Leticia 2 Sensor kit) Use to test blood sugar 4 times per day lancets (Accu-Chek Softclix Lancets) As directed metformin ER 750 mg PO DAILY Mounjaro (tirzepatide) 2.5 mg (0.5 mL) subcut QWEEK 30 days NS ondansetron HCl 8 mg PO Q12H PRN rosuvastatin 10 mg PO DAILY zolpidem 10 mg PO BEDTIME PRN HPI Comments Details: 49-yr-old female presents for f/u visit of insomnia. Patient denies any significant interval history changes. 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 She is now able to do more activities after work. She is interested filled in listening to the weekly sleep unplug podcast, however was not able to recall where I had sent the information to. Pt continues to have sleep difficulties- historically she has had more difficulty falling asleep, but more recently she has had a few episodes of sleep maintenance difficulty and difficulty falling back asleep when she wakes up. She has increased amitriptyline to 50 mg q.h.s. consistently. To continues with Ambien 10 mg daily 2 hours before bedtime, very occasionally has taken an extra half tab when she has not been able to fall back asleep. Previous treatments: CBTi w/ Dr Peña, this helped to keep her consistent with her bedtime routine, but overall this was not a good fit for her. [facility] Medical History (Updated 10/05/24 @ 08:02 by Dash Rivas MD) Obesity Diabetes mellitus with hyperglycemia, without long-term current use of insulin Type 2 diabetes mellitus without complication, without long-term current use of insulin Lateral pain of right hip Positive colorectal cancer screening using Cologuard test Diabetes mellitus with hyperglycemia History of vitamin D deficiency Breast calcification, left Vitamin D deficiency Chronic insomnia Mixed dyslipidemia Surgical History History of esophagogastroduodenoscopy (EGD) H/O colonoscopy Hx of tonsillectomy History of bunionectomy Family History Father Mental health disorder Cancer Social History Household Members: None Housing: Apartment Alcohol intake: current Alcohol intake frequency: holidays/special occasions only Patient Tobacco Use Status: Current everyday Tobacco user Cigarette Packs Per Day: 0.5 Cigarettes Per Day: 10 Years Smoked: 30 +/- e-Cigarette/Vaping Use: Never Used service: No Current occupational status: employed 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 Cognitive needs: No Hearing needs: No Vision needs: No Physical Exam Vital Signs: Last Vital Signs Pulse 97 10/28/24 13:33 BP 148/90 H 10/28/24 13:33 Pulse Ox 97 10/28/24 13:33 Oxygen Delivery Method Room Air 10/28/24 13:33 BMI result Body Mass Index 33.1 Const General: cooperative and no acute distress Orientation/consciousness: patient oriented x3 Resp Effort & Inspection: normal respiratory effort and able to speak in complete sentences Neuro General: patient oriented x3 Cognition (Neuro): normal cognition Psych Appearance: grossly normal Affect: normal affect Attitude: cooperative Thought process: Normal thought process present Assessment & Plan Assessment & Plan (1) Chronic insomnia: Code(s): F51.04 - Psychophysiologic insomnia Category: Medical (2) Sleep disorder: Comment: Snoring, fragmented sleep, excessive daytime sleepiness Code(s): G47.9 - Sleep disorder, unspecified Category: Medical (3) Hypersomnia: Code(s): G47.10 - Hypersomnia, unspecified Category: Medical Plan Continue Ambien 10mg 2 hours before bedtime nightly- may very occasionally take extra half tab q.h.s. p.r.n.. Continue Amitriptyline 50mg nightly (at least 9-10 hours before she needs to wake up in morning) during weekdays. Pt has completed CBTi w/ local behavioral health clinic- she found the previous CBTi héctor more helpful. Will reshare updated behavioral sleep education w/ pt-, including new BBTi track and field coach sleep héctor. If sleep maintenance symptoms persists, consider increasing amitriptyline. ? Patient has previously failed Ramelteon, Lunesta, fluoxetine 10 mg, bupropion XL 150 mg (felt sick, anxiety, confusion), lorazepam 1 mg (stopped working), doxepin, quetiapine, Belsomra (sleep paralysis), escitalopram 5-15 mg, sertraline 50-150 mg (increased anxiety), venlafaxine 37.5 mg, clonazepam, Ramelteon. ? Future considerations: repeating MSLT off of all anti-depressant medications. ? f/u in 6-9 months or sooner prn Medications: New amitriptyline 50 mg PO BEDTIME 90 days 90 tabs 1RF Discontinued amitriptyline Discontinued Reason: Doctor's Order 25 - 50 mg (1 - 2 x 25 mg) PO BEDTIME 30 days 60 tabs 6RF Coding Level of Care Code Est Pt Level 4 (49223) Diagnoses Chronic insomnia F51.04 Sleep disorder G47.9 Hypersomnia G47.10
== END 2024-10-28 14:51 | disposition home or self-care (01) ==
LOC: HO.HSMS 13:24
PROVIDERS: PCP Internal Medicine; Visit Provider Nurse Practitioner Family
DX: F51.04 Psychophysiologic insomnia (principal); G47.9 Sleep disorder, unspecified; G47.10 Hypersomnia, unspecified
CPT/HCPCS: 99214

== ENCOUNTER 2024-11-09 08:23 | Outpatient (AMB) | payer OTHER, SELFPAY ==
[2024-11-09 08:26] VITALS: BMI 32.4
--- NOTE | 2024-11-09 08:26 | MHC.OFFVIS ---
Vital Signs 11/09/24 08:26 Height 5 ft 5 in Weight 195 lb BMI 32.4 Intake Visit Reasons: OV - Pelvis MRI Review Intake Note: Petra is a 49 year old female who presents today for an MRI review of her Pelvis. At her last visit we discussed that she has Severe Right Hip OA, at this time she does not want to pursue any surgical intervention and that injections may be beneficial. She is interested in possible injections. Based on xrays taken in office an MRI was recommended for finding of cystic lucencies. Currently her hip pain has decreased and moved to the anterioir thigh and right knee. The knee locks and feels as though it may give out on her. , she has not taken any falls . Allergies penicillin V Allergy (Unknown, Verified 11/09/24 08:31) hives HPI HPI OV - Pelvis MRI Review: Details: Petra is a 49 year old female who presents today for an MRI review of her Pelvis. At her last visit we discussed that she has Severe Right Hip OA, at this time she does not want to pursue any surgical intervention and that injections may be beneficial. Based on xrays taken in office an MRI was recommended. Results of the MRI were notable for arthritis only. She continues to have severe limitation of range of motion and pain extending down the medial aspect of her right leg. IMPRESSION: 1. Severe osteoarthritis in the right hip and more moderate osteoarthritis in the left hip. 2. Mild gluteus minimus tendinosis bilaterally. 3. Mild degenerative disc disease and facet arthropathy at L5-S1. [facility] Medical History (Updated 10/05/24 @ 08:02 by Dash Rivas MD) Obesity Diabetes mellitus with hyperglycemia, without long-term current use of insulin Type 2 diabetes mellitus without complication, without long-term current use of insulin Lateral pain of right hip Positive colorectal cancer screening using Cologuard test Diabetes mellitus with hyperglycemia History of vitamin D deficiency Breast calcification, left Vitamin D deficiency Chronic insomnia Mixed dyslipidemia Surgical History History of esophagogastroduodenoscopy (EGD) H/O colonoscopy Hx of tonsillectomy History of bunionectomy Family History Father Mental health disorder Cancer Social History Household Members: None Housing: Apartment Alcohol intake: current Alcohol intake frequency: holidays/special occasions only Patient Tobacco Use Status: Current everyday Tobacco user Cigarette Packs Per Day: 0.5 Cigarettes Per Day: 10 Years Smoked: 30 +/- e-Cigarette/Vaping Use: Never Used service: No Current occupational status: employed 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 2+ dorsalis pedis pulse. Fires EHL/GC/tib ant Results Reviewed Results Reviewed: I personally reviewed relevant radiographs. Severe osteoarthritis right hip Assessment & Plan Assessment & Plan (1) Primary osteoarthritis of right hip: Code(s): M16.11 - Unilateral primary osteoarthritis, right hip Category: Medical Plan: This is a 49-year-old woman with severe osteoarthritis of the right hip. She has not able to get dressed on her own or function daily activities without pain. She has some restrictions with her ability to take time off from work but she would like to start planning arthroplasty on the right. I strongly recommend it. She has severe arthritis and I do not think that steroid injections would be helpful especially given her osteoarthritis. I did discuss PRP injections I think this might help her get through the next several months. I will make a referral for her and we will see her back in proximally 6 weeks and begin planning her right hip replacement. Orders: Referrals Pain Management Referral M16.11 - Unilateral primary osteoarthritis, right hip Coding Level of Care Code Est Pt Level 4 (80513) Diagnoses Primary osteoarthritis of right hip M16.11
== END 2024-11-09 09:10 | disposition home or self-care (01) ==
LOC: HO.HOS 08:24
PROVIDERS: PCP Internal Medicine; Visit Provider Orthopaedic Surgery
DX: M16.11 Unilateral primary osteoarthritis, right hip (principal)
CPT/HCPCS: 99214

== ENCOUNTER → 2024-11-09 08:23 | Outpatient (BNVA) | payer OTHER, SELFPAY | PROVIDERS: PCP Internal Medicine; Visit Provider Orthopaedic Surgery ==

== ENCOUNTER 2024-11-16 07:16 | Outpatient (REF) | payer OTHER, SELFPAY ==
[2024-11-16 10:37] LABS: Estimated Average Glucose 183 mg/dL; Hemoglobin A1C 238.4538 umol/L; Total Hemoglobin (HGBA1C) 3734.7163 umol/L
[2024-11-16 10:45] LABS: Alanine Aminotransferase 47 U/L (0-31); Albumin Level 4.3 g/dL (3.5-5.0); Alkaline Phosphatase 80 U/L (39-117); Anion Gap 15 (12-20); Aspartate Amino Transferase 74 U/L (5-31); Bilirubin Total 0.6 mg/dL (0.0-1.0); Blood Urea Nitrogen 10 mg/dL (9-16); Calcium 9.3 mg/dL (8.4-10.2); Carbon Dioxide 25 mmol/L (22-29); Chloride 103 mmol/L (96-108); Cholesterol 173 mg/dL (<200); Estimated Glomerular Filt Rate > 60; Glucose Fasting 180 mg/dL (60-99); HDL Cholesterol 30 mg/dL (>40); LDL Cholesterol Calculated 99 mg/dL (<100); Potassium 3.4 mmol/L (3.3-5.1); Sodium 140 mmol/L (135-145); Total Protein 7.6 g/dL (6.5-8.0); Triglycerides 223 mg/dL (<150)
== END 2024-11-16 07:17 | disposition home or self-care (01) ==
LOC: HO.HMGCLDS 07:16
PROVIDERS: PCP Internal Medicine; Visit Provider Internal Medicine
DX: E66.9 Obesity, unspecified (principal); E11.65 Type 2 diabetes mellitus with hyperglycemia; E78.2 Mixed hyperlipidemia
CPT/HCPCS: 36415; 80053; 80061; 83036

== ENCOUNTER 2024-11-20 09:24 | Outpatient (AMB) | payer OTHER, SELFPAY ==
--- NOTE | 2024-11-20 09:22 | A.OFFPC_ITS ---
Intake Visit Reasons: f/u DM labs Allergies penicillin V Allergy (Unknown, Verified 11/20/24 09:36) hives Medication List - Last Reconciled 11/20/24 by Aimee Rudd MD alprazolam 0.5 mg PO BID PRN amitriptyline 50 mg PO BEDTIME 90 days blood sugar diagnostic (FreeStyle Lite Strips) Check fasting blood sugar once a day before meal blood-glucose meter (FreeStyle Lite Meter kit) Check fasting blood sugar once a day before meal duloxetine 120 mg PO DAILY flash glucose scanning reader ([employer] Leticia 2 [place]) As directed flash glucose sensor (FreeStyle Leticia 2 Sensor kit) Use to test blood sugar 4 times per day lancets (Accu-Chek Softclix Lancets) As directed metformin ER 750 mg PO DAILY Mounjaro (tirzepatide) 2.5 mg (0.5 mL) subcut QWEEK 30 days NS ondansetron HCl 8 mg PO Q12H PRN rosuvastatin 10 mg PO DAILY zolpidem 10 mg PO BEDTIME PRN Tobacco use date assessed: 11/20/24 Dental Screening Dental Screen Date: 11/20/24 Did you have a dental visit in the last 12 months?: Yes Did you have a dental problem in the last 6 months where you did not have access to dental care?: Yes Was dental information given to patient?: Patient has dentist HPI f/u DM labs HPI Details 49-year-old lady with history of diabete s mellitus, and dyslipidemia, here today for her follow-up. Currently taking Mounjaro 2.5 mg once a week, in addition to metformin ER 750 mg daily, and is also taking rosuvastatin 10 mg once a day. Latest fasting labs showed hemoglobin A1c is going up at 8% She has reported gastrointestinal issues that involve severe nausea and burping with a rotten egg odor, managed minimally with Gas-X and Zofran. These symptoms mimic previous experiences on Ozempic. Concerns about initiating Mounjaro due to potential side effects are noted. -Additionally, she experiences significa nt hip pain attributed to osteoarthritis and has considered a PRP injection, with plans to discuss potential hip replacement surgery. [facility] Medical History (Updated 11/20/24 @ 09:47 by Aimee Rudd MD) Gastroparesis Obesity Diabetes mellitus with hyperglycemia, without long-term current use of insulin Type 2 diabetes mellitus without complication, without long-term current use of insulin Lateral pain of right hip Positive colorectal cancer screening using Cologuard test Diabetes mellitus with hyperglycemia History of vitamin D deficiency Breast calcification, left Vitamin D deficiency Chronic insomnia Mixed dyslipidemia Surgical History History of esophagogastroduodenoscopy (EGD) H/O colonoscopy Hx of tonsillectomy History of bunionectomy Family History Father Mental health disorder Cancer Social History Household Members: None Housing: Apartment Alcohol intake: current Alcohol intake frequency: holidays/special occasions only Patient Tobacco Use Status: Current everyday Tobacco user Cigarette Packs Per Day: 0.5 Cigarettes Per Day: 10 Years Smoked: 30 +/- e-Cigarette/Vaping Use: Never Used service: No Current occupational status: employed 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 Oscar Parrish, Ivis Redd, Francisco J Stuart and colleagues, with an educational kira from [employer]. Review of Systems Const Reports no additional complaints Eyes Details: Goes to [facility] Reports requires corrective lenses ENT Reports no additional complaints Card Denies chest pain, Denies chest pain with activity, Denies irregular heart rhythm, Denies lightheadedness and Denies dyspnea on exertion Resp Denies dyspnea on exertion GI Reports as per HPI Reports no additional complaints Musc Details: Occasional pain in right hip joint, worse with walking for extended periods of time Skin/Breast Denies breast pain, Denies breast mass and Denies rash Neuro Reports no additional complaints Psych Reports no additional complaints Endo Reports no additional complaints Andre/Lymph Reports no additional complaints Aller/Immun Reports no additional complaints Physical exam (Primary Care) Tobacco/Smoking Status: Tobacco use Status Tobacco use date assessed 11/20/24 11/20/24 09:23 Patient Tobacco Use Status Current everyday Tobacco 05/23/25 09:23 e-Cigarette/Vaping Use Never Used 11/20/24 09:23 Thrive Assessment: Date of Thrive Assessment Date Thrive assessed 08/04/24 11/20/24 09:23 Telehealth Telehealth Telehealth Platform: Odoo (formerly OpenERP) Location of provider rendering services: practice address Location of patient: address on file Patient Identification confirmed using: Name, : Yes Telehealth method: video Patient verbally consented to treatment: Yes Patient verbally consented to billing insurance company: Yes Patient informed of any privacy concerns related to visit: Yes Minutes spent on Phone/Video with Pt.: 15 Results Reviewed Results Reviewed: Laboratory Tests 11/16/24 07:23 Estimat Average Glucose 183 Hemoglobin A1c % 8.0 H Name: Petra Rodriguez Age/Sex: 49/F : 1975 Unit#: [id number] Attend Dr: Aimee Rudd MD Re11/16/24 Status: DEP REF Location: [facility] Disch: SPEC : [id number] [place]: 11/16/24 STATUS: COMP REQ : [id number] RECD: 11/16/24-[address]: Aimee Rudd MD COMP: 11/16/245 ENTERED: 11/16/[address]: ORDERED: CMP Fast, Lipid Panel Test Result Flag Reference Sodium 140 135-145 mmol/L Potassium 3.4 3.3-5.1 mmol/L CL 103 96-108 mmol/L CO2 25 22-29 mmol/L Gap 15 12-20 BUN 10 9-16 mg/dL Creat 0.80 0.5-1.4 mg/dL eGFR > 60 Chronic Kidney Disease: Estimated GFR < 60 mL/min/1.73m2 Severe Kidney Disease: Estimated GFR < 15 mL/min/1.73m2 FBS 180 H 60-99 mg/dL A fasting glucose of 126 mg/dl or greater on more than one occasion is considered diagnostic of diabetes. CA 9.3 8.4-10.2 mg/dL Total Bili 0.6 0.0-1.0 mg/dL AST (GOT) 74 H 5-31 U/L ALT (GPT) 47 H 0-31 U/L Protein, Total 7.6 6.5-8.0 g/dL Alb 4.3 3.5-5.0 g/dL Triglyceride 223 H <150 mg/dL Desirable Triglyceride: less than 150 mg/dL Borderline High Triglyceride 150-199 mg/dL High Triglyceride: 200-499 mg/dL Very High Triglyceride: greater than or equal to 5OO mg/dL Cholesterol 173 <200 mg/dL Desirable Cholesterol: less than 200 mg/dL Borderline High Cholesterol: 200-239 mg/dL High Cholesterol: greater than 239 mg/dL LDL Calculated 99 <100 mg/dL Desirable LDL: less than 100 mg/dL Near Optimal/Above Optimal LDL: 110-129 mg/dL Borderline High LDL: 130-159 mg/dL High LDL: 160-189 mg/dL Very High LDL: greater than or equal to 190 mg/dL HDL 30 L >40 mg/dL Desirable HDL: greater than 40 mg/dL Note: This HDL assay may give artificially low results in patients with liver disease. Alk Phos 80 39-117 U/L Coding Level of Care Code Tele Est Pt Level 4 (56907) Complex EM visit Add On G2211 Diagnoses Diabetes mellitus with hyperglycemia, without long-term current use of insulin E11.65 Gastroparesis K31.84 Mixed dyslipidemia E78.2 Assessment & Plan Assessment & Plan (1) Diabetes mellitus with hyperglycemia, without long-term current use of insulin: Code(s): E11.65 - Type 2 diabetes mellitus with hyperglycemia Category: Medical Plan: Patient states that she will be leaving for vacation for a week and will start Mounjaro afterwards. Reminded again on how to administer medication. Continue with metformin ER 750 mg once a day. Reinforced importance of following a recommended diet getting regular exercise. Up-to-date with her screening for retinopathy. Repeat fasting labs again in January 2025 prior to next appointment (2) Gastroparesis: Code(s): K31.84 - Gastroparesis Category: Medical Plan: Prescription sent for metoclopramide 5 mg per tablet to take 1 tablet twice a day as needed. (3) Mixed dyslipidemia: Code(s): E78.2 - Mixed hyperlipidemia Category: Medical Plan: Latest fasting labs showed elevated triglycerides with normal LDL cholesterol. Is to be expected as her diabetes mellitus is not well controlled. Will continue on rosuvastatin 10 mg daily, reinforced importance of following a low- cholesterol diet and getting regular exercise. Will repeat fasting lipids again in 3 months which hopefully should improve once she starts taking Mounjaro Orders: Orders Microalbumin, Random (w Creat) 01/29/25 E11.65 - Type 2 diabetes mellitus with hyperglycemia, E66.9 - Obesity, unspecified, E78.2 - Mixed hyperlipidemia, K31.84 - Gastroparesis Hemoglobin A1c 01/29/25 E11.65 - Type 2 diabetes mellitus with hyperglycemia, E66.9 - Obesity, unspecified, E78.2 - Mixed hyperlipidemia, K31.84 - Gastroparesis Comprehensive Spencer. Panel Fast 01/29/25 E11.65 - Type 2 diabetes mellitus with hyperglycemia, E66.9 - Obesity, unspecified, E78.2 - Mixed hyperlipidemia, K31.84 - Gastroparesis Lipid Panel 01/29/25 E11.65 - Type 2 diabetes mellitus with hyperglycemia, E66.9 - Obesity, unspecified, E78.2 - Mixed hyperlipidemia, K31.84 - Gastroparesis Medications: New metoclopramide HCl 5 mg PO DAILY PRN 30 tabs 0RF nausea and vomiting K31.84 - Gastroparesis
== END 2024-11-20 10:08 | disposition home or self-care (01) ==
LOC: HO.HMCC 09:24
PROVIDERS: PCP Internal Medicine; Visit Provider Internal Medicine
DX: E11.65 Type 2 diabetes mellitus with hyperglycemia (principal); K31.84 Gastroparesis; E78.2 Mixed hyperlipidemia

== ENCOUNTER → 2024-11-20 09:24 | Outpatient (BNVA) | payer OTHER, SELFPAY | PROVIDERS: PCP Internal Medicine; Visit Provider Internal Medicine | DX: Z13.89 Encounter for screening for other disorder (principal) ==

== ENCOUNTER 2024-12-03 06:04 | Outpatient (REF) | payer OTHER, SELFPAY ==
--- NOTE | ~2024-12-03 | FL_ITS ---
EXAMINATION: FL GUIDANCE ONLY HISTORY: M16.11 - Unilateral primary osteoarthritis, right hip COMPARISON: None available. TECHNIQUE: Fluoroscopy time: 3.3 seconds. Cumulative Dose: 0.9903 mGy. DAP: 0.1524 mGym2 Images: 2. FINDINGS: Fluoroscopic spot films of the right hip demonstrate a needle in place and contrast material within the joint. FL/FL guidance in treatment room IMPRESSION: Fluoroscopy during procedure. Please see procedure report for additional information. Electronically signed by: Oscar Weber MD 12/03/2024 03:13 PM EDT
--- OUTSIDE RECORDS SUMMARY | 2024-12-03 06:07 | XMS_ITS | Patient Health Record ---
Author Organization [facility] Address [address] [place] [address] Care Team Providers Care Appraisal Specialist Name Role Phone Tobin GARCIA, Aimee Haines Primary Care Provider Un available Black, Mary Unavailable [phone] Allergies Allergen (clinical drug ingredient) Drug/Non Drug Allergy documented on EMR Reaction Allergy Type Onset Date Status Penicillin hives Drug Allergy Active Reason For Referral No Information Plan Of Treatment Pending Test Test Name Order Date X ray : Foot, left 3V 10/29/2011 Insurance Providers Payer Name Payer Address Payer Phone Subscriber Number Group Number Insured Name Patient Relationship to Insured Coverage Start Date Coverage End Date [facility] [address] [place] [address] [id number] Petra Rodriguez Self - patient is the insured Medical (General) History Medical History History ICD Code chicken pox Surgical History Surgery Date(Month/Year) bunionectomy , tonsillectomy
== END 2024-12-03 06:05 | disposition home or self-care (01) ==
LOC: CF 06:04
PROVIDERS: Visit Provider Internal Medicine
DX: Z13.89 Encounter for screening for other disorder (principal)

== ENCOUNTER 2024-12-03 09:15 | Outpatient (AMB) | payer SELFPAY ==
[2024-12-03 09:25] VITALS: BP 148/72; PULSE 104; RESP 16; O2SAT 96
--- NOTE | 2024-12-03 09:25 | A.OFFVIS_ITS ---
Vital Signs 12/03/24 09:25 12/03/24 10:53 BP 148/72 H 138/65 Blood Pressure Location Lt brachial Lt brachial Position Sitting Sitting Respiration 16 16 Pulse 104 H 82 Pulse Source Pulse Oximeter Pulse Oximeter Pulse Oximetry (%) 96 95 Oxygen Delivery Method Room Air Room Air Intake Visit Reasons: Right hip PRP Conversion Man Required: No Allergies penicillin V Allergy (Unknown, Verified 12/03/24 09:26) hives Medication List - Last Reconciled 12/03/24 by Karen Cohen LPN alprazolam 0.5 mg PO BID PRN amitriptyline 50 mg PO BEDTIME 90 days blood sugar diagnostic (FreeStyle Lite Strips) Check fasting blood sugar once a day before meal blood-glucose meter (FreeStyle Lite Meter kit) Check fasting blood sugar once a day before meal duloxetine 120 mg PO DAILY flash glucose scanning reader ([employer] Leticia 2 [place]) As directed flash glucose sensor (FreeStyle Leticia 2 Sensor kit) Use to test blood sugar 4 times per day lancets (Accu-Chek Softclix Lancets) As directed metformin ER 750 mg PO DAILY metoclopramide HCl 5 mg PO DAILY PRN Mounjaro (tirzepatide) 2.5 mg (0.5 mL) subcut QWEEK 30 days NS ondansetron HCl 8 mg PO Q12H PRN rosuvastatin 10 mg PO DAILY zolpidem 10 mg PO BEDTIME PRN PFSH Medical History (Updated 11/20/24 @ 09:47 by Aimee Rudd MD) Gastroparesis Obesity Diabetes mellitus with hyperglycemia, without long-term current use of insulin Type 2 diabetes mellitus without complication, without long-term current use of insulin Lateral pain of right hip Positive colorectal cancer screening using Cologuard test Diabetes mellitus with hyperglycemia History of vitamin D deficiency Breast calcification, left Vitamin D deficiency Chronic insomnia Mixed dyslipidemia Surgical History History of esophagogastroduodenoscopy (EGD) H/O colonoscopy Hx of tonsillectomy History of bunionectomy Family History Father Mental health disorder Cancer Social History Household Members: None Housing: Apartment Alcohol intake: current Alcohol intake frequency: holidays/special occasions only Patient Tobacco Use Status: Current everyday Tobacco user Cigarette Packs Per Day: 0.5 Cigarettes Per Day: 10 Years Smoked: 30 +/- e-Cigarette/Vaping Use: Never Used service: No Current occupational status: employed 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 An 18 gauge butterfly needle was used to obtain 50 mL of whole blood from the right antecubital fossa. This was then mixed with 9 mL anticoagulant citrate dextrose solution. The 60 mL mixture was counter balanced to within 1 g and spun at 3500 rpm for 10 minutes. Platelet poor plasma was then drawn using a bench top press model. 6 mL of slightly leukocyte rich PRP was isolated in a 10 cc syringe and injected into the right hip joint under x-ray guidance. Primary Site: other (Right hip) Prep: site was prepped using sterile technique and injection warnings given Approach Used: other (Lateral fluoroscopy guided with arthrogram) Procedure: The patient tolerated the procedure well XCELL Platelet Plasma - 0232T 60 mL All charges added?: Procedure code (CPT) selection complete Assessment & Plan Assessment & Plan (1) Primary osteoarthritis of right hip: Code(s): M16.11 - Unilateral primary osteoarthritis, right hip Category: Medical Plan Patient is status post intra-articular right hip PRP injection with under x-ray guidance with a g. Patient tolerated procedure well and was discharged home in stable condition with discharge instructions. All questions were answered. We will follow-up via telephone or in clinic to assess response to therapy. A follow-up appointment was made during today's visit. Orders: Orders FL guidance in treatment room 12/03/24 Ruba Theodore APRN, DIRECTOR OF INTEGRATED MARKETING M16.11 - Unilateral primary osteoarthritis, right hip AMB Platelet Rich Plasma (PRP) Injection 12/03/24 Ruba Theodore, OUTSIDE PLANT TECHNICIAN, DIRECTOR OF INTEGRATED MARKETING M16.11 - Unilateral primary osteoarthritis, right hip Medications: New tramadol 50 mg PO BID PRN 20 tabs 0RF pain Lalo Salgado MD Coding Level of Care Code Procedure Only Diagnoses Primary osteoarthritis of right hip M16.11 CPT Codes XCELL Kit 60mL ([id number])
[2024-12-03 10:53] VITALS: BP 138/65; PULSE 82; RESP 16; O2SAT 95
== END 2024-12-03 10:53 | disposition home or self-care (01) ==
PROVIDERS: PCP Internal Medicine; Visit Provider Internal Medicine
DX: M16.11 Unilateral primary osteoarthritis, right hip (principal)
CPT/HCPCS: 0232T

== ENCOUNTER 2025-01-14 09:21 | Outpatient (AMB) | payer OTHER, SELFPAY ==
[2025-01-14 09:34] VITALS: BMI 32.4
--- NOTE | 2025-01-14 09:34 | MHC.OFFVIS ---
Vital Signs 01/14/25 09:34 Height 5 ft 5 in Weight 195 lb BMI 32.4 Intake Visit Reasons: OV-Rt side of pelvis-6WK follow up Intake Note: Petra is a 49 year old female who presents today for a follow up of Right Hip OA. At her last visit we discussed conservative vs surgical treatment, a referral was placed to pain management for possible PRP injections. A Right Hip PRP Injection was performed on 12/03/[address] Salgado. Patient reports very mild relief with PRP Allergies penicillin V Allergy (Unknown, Verified 01/14/25 09:38) hives HPI HPI OV-Rt side of pelvis-6WK follow up: Details: Petra is a 49 year old female who presents today for a follow up of Right Hip OA. At her last visit we discussed conservative vs surgical treatment, a referral was placed to pain management for possible PRP injections. A Right Hip PRP Injection was performed on 12/03/[address] Salgado. Patient reports very mild relief with PRP. Overall she feels that she is suffering and can not really function at all. She has difficulty with range of motion and getting into and out of a car, she has difficulty with stairs, difficulty getting in chair bed. [facility] Medical History Gastroparesis Obesity Diabetes mellitus with hyperglycemia, without long-term current use of insulin Type 2 diabetes mellitus without complication, without long-term current use of insulin Lateral pain of right hip Positive colorectal cancer screening using Cologuard test Diabetes mellitus with hyperglycemia History of vitamin D deficiency Breast calcification, left Vitamin D deficiency Chronic insomnia Mixed dyslipidemia Surgical History History of esophagogastroduodenoscopy (EGD) H/O colonoscopy Hx of tonsillectomy History of bunionectomy Family History Father Mental health disorder Cancer Social History Household Members: None Housing: Apartment Alcohol intake: current Alcohol intake frequency: holidays/special occasions only Patient Tobacco Use Status: Current everyday Tobacco user Cigarette Packs Per Day: 0.5 Cigarettes Per Day: 10 Years Smoked: 30 +/- e-Cigarette/Vaping Use: Never Used service: No Current occupational status: employed 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 She has antalgic gait. Assessment & Plan Assessment & Plan (1) Primary osteoarthritis of right hip: Code(s): M16.11 - Unilateral primary osteoarthritis, right hip Category: Medical Plan: This is a 49-year-old woman with right hip osteoarthritis that is severe. She is trying to avoid surgery given her age but is finding this increasingly difficult. Injections including PRP have not been sufficiently helpful. She can not undergo surgery currently as she feels obligated to work and can not take time off from work. I reviewed the pathophysiology and the surgical options. I recommend right hip replacement. I discussed the risks benefits and alternatives including but not limited to the risk of pain, infection, stiffness, need for further surgery as well as potential medical complications such as blood clots, pulmonary embolism and cardiac complications. All her questions were answered. She would like to proceed forward but is not in a position to do that at this time. I recommend that she avoid exacerbating activity and follow up to see me in about 3 months' time. That point hopefully she will be in a better position to arrange surgery. Coding Level of Care Code Est Pt Level 4 (54057) Diagnoses Primary osteoarthritis of right hip M16.11
--- OUTSIDE RECORDS SUMMARY | 2025-01-14 09:38 | XMS_ITS | Patient Health Record ---
Author Organization [facility] Address [address] [place] [address] Care Team Providers Care Traveling Plant Operator Name Role Phone Tobin GARCIA, Aimee Haines Primary Care Provider Un available Black, Mary Unavailable [phone] Allergies Allergen (clinical drug ingredient) Drug/Non Drug [...] Insured Coverage Start Date Coverage End Date [facility] [address] [place] [address] [id number] Petra Rodriguez Self - patient is the insured Medical (General) History Medical History History ICD Code chicken pox Surgical History Surgery Date(Month/Year) bunionectomy , tonsillectomy
== END 2025-01-14 10:15 | disposition home or self-care (01) ==
LOC: HO.HOS 09:22
PROVIDERS: PCP Internal Medicine; Visit Provider Orthopaedic Surgery
DX: M16.11 Unilateral primary osteoarthritis, right hip (principal)
CPT/HCPCS: 99214

== ENCOUNTER 2025-02-17 08:12 | Outpatient (REF) | payer OTHER, SELFPAY ==
--- OUTSIDE RECORDS SUMMARY | 2025-02-17 08:40 | XMS_ITS | Continuity of Care Document ---
Author Organization [facility] Address [address] [place] [id number] Insurance Providers Payer Plan Claims Address Claims Phone Policy Number Group Number Relation Employer Guarantor Name Guarantor Guarantor Address Guarantor Phone [facility], [address], [place] [address] tel:[phone] [id number] [place] 1975 [place] [id number] Problems Condition ICD9 code ICD10 code SNOMED code Start Date End Date S tatus Encounter for screening for other metabolic disorders Z13.228 Results No Results Allergies, adverse reactions, alerts No known allergies and adverse reactions Medications No administered medications reported Vital Signs No vital signs reported Social History No smoking Hx information available
--- OUTSIDE RECORDS SUMMARY | 2025-02-17 08:40 | XMS_ITS | Continuity of Care Document ---
Author Organization [facility] Address [address] [place] [id number] Insurance Providers Payer Plan Claims Address Claims Phone Policy Number Group Number Relation Employer Guarantor Name Guarantor Guarantor Address Guarantor Phone [facility] [address] [facility], [address], [place] [address] tel:[phone] [id number] [place] 1975 [id number] Problems Condition ICD9 code ICD10 code SNOMED code Start Date End Date S tatus Encounter for screening for other metabolic disorders Z13.228 Results No Results Allergies, adverse reactions, alerts No known allergies and adverse reactions Medications No administered medications reported Vital Signs No vital signs reported Social History No smoking Hx information available
[2025-02-17 11:49] LABS: Alanine Aminotransferase 47 U/L (0-31); Albumin Level 4.3 g/dL (3.5-5.0); Alkaline Phosphatase 78 U/L (39-117); Anion Gap 16 (12-20); Aspartate Amino Transferase 51 U/L (5-31); Blood Urea Nitrogen 10 mg/dL (9-16); Calcium 9.0 mg/dL (8.4-10.2); Carbon Dioxide 22 mmol/L (22-29); Chloride 105 mmol/L (96-108); Cholesterol 160 mg/dL (<200); Estimated Glomerular Filt Rate > 60; HDL Cholesterol 27 mg/dL (>40); Potassium 4.0 mmol/L (3.3-5.1); Sodium 139 mmol/L (135-145); Total Protein 7.1 g/dL (6.5-8.0); Triglycerides 196 mg/dL (<150)
[2025-02-17 11:52] LABS: Hemoglobin A1C 369.1957 umol/L; Total Hemoglobin (HGBA1C) 5081.0984 umol/L
== END 2025-02-17 08:13 | disposition home or self-care (01) ==
LOC: HO.HMGCLDS 08:12
PROVIDERS: PCP Internal Medicine; Visit Provider Internal Medicine
DX: E11.65 Type 2 diabetes mellitus with hyperglycemia (principal); E66.9 Obesity, unspecified; E78.2 Mixed hyperlipidemia; K31.84 Gastroparesis
CPT/HCPCS: 36415; 80053; 80061; 83036

== ENCOUNTER 2025-02-19 09:09 | Outpatient (AMB) | payer OTHER, SELFPAY ==
--- NOTE | 2025-02-19 09:06 | A.OFFPC_ITS ---
Intake Visit Reasons: f/u DM labs Allergies penicillin V Allergy (Unknown, Verified 02/19/25 09:20) hives Medication List - Last Reconciled 02/19/25 by Aimee Rudd MD alprazolam 0.5 mg PO BID PRN amitriptyline 50 mg PO BEDTIME 90 days blood sugar diagnostic (FreeStyle Lite Strips) Check fasting blood sugar once a day before meal blood-glucose meter (FreeStyle Lite Meter kit) Check fasting blood sugar once a day before meal duloxetine 120 mg PO DAILY flash glucose scanning reader (FreeStyle Leticia 2 [place]) As directed flash glucose sensor (FreeStyle Leticia 2 Sensor kit) Use to test blood sugar 4 times per day lancets (Accu-Chek Softclix Lancets) As directed metformin ER 750 mg PO DAILY ondansetron HCl 8 mg PO Q12H PRN rosuvastatin 10 mg PO DAILY zolpidem 10 mg PO BEDTIME PRN Tobacco use date assessed: 02/19/25 Dental Screening Dental Screen Date: 02/19/25 Did you have a dental visit in the last 12 months?: Yes Did you have a dental problem in the last 6 months where you did not have access to dental care?: No Was dental information given to patient?: Patient has dentist HPI HPI Comments History of Present Illness Details - The patient is a 49-year-old female pr esenting today for follow-up of her type 2 Diabetes Mellitus and dyslipidemia - Type 2 Diabetes Mellitus: The patient' s blood sugar levels have increased from 8 to 8.8 % in 3 months, currently on 750 mg of metformin once a day.. - She expressed concern about whether to start using Mounjaro which was prescribed on last visit, but is hesitant due to previous adverse effects with Ozempic, which included gastroparesis. - The patient has been advised to increa se metformin to 750 mg twice daily and monitor blood sugar levels, with a potential increase to 1000 mg twice daily if necessary. - Hyperhidrosis: The patient reports exc essive sweating in the armpits, which has been a long-standing issue causing embarrassment and damage to clothing. - She requested a prescription for medic ated deodorant to manage the condition. - Skin condition on heels: The patient i s experiencing a skin condition on her heels, sees shelver, for which topical creams have been ineffective. - Her shelver has recommended an oral medication, but liver function needs to be monitored due to previously elevated liver enzymes and request a copy of recent liver panel done faxed to her clinic -she had a diabetes eye exam at [facility] and now made an appointment to see [facility] instead, scheduled for May 2025. [facility] Medical History (Updated 02/19/25 @ 09:33 by Aimee Rudd MD) Hyperhidrosis Gastroparesis Obesity Diabetes mellitus with hyperglycemia, without long-term current use of insulin Type 2 diabetes mellitus without complication, without long-term current use of insulin Lateral pain of right hip Positive colorectal cancer screening using Cologuard test Diabetes mellitus with hyperglycemia History of vitamin D deficiency Breast calcification, left Vitamin D deficiency Chronic insomnia Mixed dyslipidemia Surgical History History of esophagogastroduodenoscopy (EGD) H/O colonoscopy Hx of tonsillectomy History of bunionectomy Family History Father Mental health disorder Cancer Social History Household Members: None Housing: Apartment Alcohol intake: current Alcohol intake frequency: holidays/special occasions only Patient Tobacco Use Status: Current everyday Tobacco user Cigarette Packs Per Day: 0.5 Cigarettes Per Day: 10 Years Smoked: 30 +/- Packs Per Year: 0 Packs per year/per ci.00 e-Cigarette/Vaping Use: Never Used service: No Current occupational status: employed 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 Oscar Parrish, Ivis Redd, Francisco J Stuart and colleagues, with an educational kira from [employer] Review of Systems Const Reports no additional complaints Eyes Details: Seen at [facility], scheduled appointment now to see [facility] later this year Reports requires corrective lenses ENT Reports no additional complaints Card Denies chest pain, Denies irregular heart rhythm, Denies lightheadedness and Denies dyspnea on exertion Resp Denies dyspnea on exertion GI Reports as per HPI Reports no additional complaints Skin/Breast Reports as per HPI Neuro Reports no additional complaints Psych Reports no additional complaints Endo Reports no additional complaints Andre/Lymph Reports no additional complaints Aller/Immun Reports no additional complaints Physical exam (Primary Care) Tobacco/Smoking Status: Tobacco use Status Tobacco use date assessed 02/19/25 02/19/25 09:08 Patient Tobacco Use Status Current everyday Tobacco 02/19/25 09:08 e-Cigarette/Vaping Use Never Used 02/19/25 09:08 Thrive Assessment: Date of Thrive Assessment Date Thrive assessed 08/04/24 02/19/25 09:08 Telehealth Telehealth Telehealth Platform: [email or web address] Location of provider rendering services: practice address Location of patient: address on file Patient Identification confirmed using: Name, : Yes Telehealth method: video Patient verbally consented to treatment: Yes Patient verbally consented to billing insurance company: Yes Patient informed of any privacy concerns related to visit: Yes Minutes spent on Phone/Video with Pt.: 15 Results Reviewed Results Reviewed: Laboratory Tests 02/17/25 08:15 Estimat Average Glucose 206 Hemoglobin A1c % 8.8 H Name: Petra Rodriguez Age/Sex: 49/F : 1975 Unit#: [id number] Attend Dr: Aimee Rudd MD Re02/17/25 Status: DEP REF Location: [facility] Disch: SPEC : [id number] [place]: 02/17/25 STATUS: COMP REQ : [id number] RECD: 02/17/[address]: Aimee Rudd MD COMP: 02/17/25-114 ENTERED: 02/17/[address]: ORDERED: CMP Fast, Lipid Panel Test Result Flag Reference Sodium 139 135-145 mmol/L Potassium 4.0 3.3-5.1 mmol/L CL 105 96-108 mmol/L CO2 22 22-29 mmol/L Gap 16 12-20 BUN 10 9-16 mg/dL Creat 0.66 0.5-1.4 mg/dL eGFR > 60 Chronic Kidney Disease: Estimated GFR < 60 mL/min/1.73m2 Severe Kidney Disease: Estimated GFR < 15 mL/min/1.73m2 FBS 202 H 60-99 mg/dL A fasting glucose of 126 mg/dl or greater on more than one occasion is considered diagnostic of diabetes. CA 9.0 8.4-10.2 mg/dL Total Bili 0.3 0.0-1.0 mg/dL AST (GOT) 51 H 5-31 U/L ALT (GPT) 47 H 0-31 U/L Protein, Total 7.1 6.5-8.0 g/dL Alb 4.3 3.5-5.0 g/dL Triglyceride 196 H <150 mg/dL Desirable Triglyceride: less than 150 mg/dL Borderline High Triglyceride 150-199 mg/dL High Triglyceride: 200-499 mg/dL Very High Triglyceride: greater than or equal to 5OO mg/dL Cholesterol 160 <200 mg/dL Desirable Cholesterol: less than 200 mg/dL Borderline High Cholesterol: 200-239 mg/dL High Cholesterol: greater than 239 mg/dL LDL Calculated 94 <100 mg/dL Desirable LDL: less than 100 mg/dL Near Optimal/Above Optimal LDL: 110-129 mg/dL Borderline High LDL: 130-159 mg/dL High LDL: 160-189 mg/dL Very High LDL: greater than or equal to 190 mg/dL HDL 27 L >40 mg/dL Desirable HDL: greater than 40 mg/dL Note: This HDL assay may give artificially low results in patients with liver disease. Alk Phos 78 39-117 U/L Coding Level of Care Code Tele Est Pt Level 4 (61140) Complex EM visit Add On G2211 Diagnoses Diabetes mellitus with hyperglycemia, without long-term current use of insulin E11.65 Mixed dyslipidemia E78.2 Hyperhidrosis R61 Assessment & Plan Assessment & Plan (1) Diabetes mellitus with hyperglycemia, without long-term current use of insulin: Code(s): E11.65 - Type 2 diabetes mellitus with hyperglycemia Category: Medical (2) Mixed dyslipidemia: Code(s): E78.2 - Mixed hyperlipidemia Category: Medical (3) Hyperhidrosis: Code(s): R61 - Generalized hyperhidrosis Category: Medical Plan - continue with metformin 750 mg but increase it to twice daily dosing and monitor blood glucose levels closely. If fasting blood sugar levels remain persistently higher than 130 mg/dL, the dose may be increased to 1000 mg twice daily. Additionally, the possibility of adding Jardiance or Farxiga was discussed if further control is needed. Does not want to start GLP 1 agonist at present time due to previous adverse reactions to Ozempic. - For hyperhidrosis, a prescription for medicated deodorant, Sofdra, sent to the patient's pharmacy to manage excessive sweating. -recent fasting lipids are within normal limits except for low HDL cholesterol , to which patient was advised to adhere to a low-cholesterol diet and start doing regular exercise at least 15 minutes of moderate intensity exercise daily or 150 minutes per week. Continued on rosuvastatin 10 mg daily The patient is advised to follow up in three months to assess the effectiveness of the treatment. -Regarding the skin condition on the heels, the patient is advised to provide her shelver with recent liver function test results to ensure safe administration of oral medication. The patient should monitor for any changes in skin condition and report back if symptoms persist. Patient was informed and verbally consented to the use of an ambient scribe for clinic note documentation during this visit. Orders: Orders Hemoglobin A1c 05/01/25.65 - Type 2 diabetes mellitus with hyperglycemia, E66.9 - Obesity, unspecified, E78.2 - Mixed hyperlipidemia, Z86.39 - Personal history of other endocrine, nutritional and metabolic disease Lipid Panel 05/01/25.65 - Type 2 diabetes mellitus with hyperglycemia, E66.9 - Obesity, unspecified, E78.2 - Mixed hyperlipidemia, Z86.39 - Personal history of other endocrine, nutritional and metabolic disease Comprehensive [place]. Panel Fast 05/01/25 E11.65 - Type 2 diabetes mellitus with hyperglycemia, E66.9 - Obesity, unspecified, E78.2 - Mixed hyperlipidemia, Z86.39 - Personal history of other endocrine, nutritional and metabolic disease Vitamin D 25-OH Total 05/01/25.65 - Type 2 diabetes mellitus with hyperglycemia, E66.9 - Obesity, unspecified, E78.2 - Mixed hyperlipidemia, Z86.39 - Personal history of other endocrine, nutritional and metabolic disease Medications: New sofpironium 12.45 % (72 mg /actuation) (Sofdra) apply 1 dose/pump to EACH underarm area 1 pump topical DAILY 40.2 mL 0RF E11.65 - Type 2 diabetes mellitus with hyperglycemia, E78.2 - Mixed hyperlipidemia, R61 - Generalized hyperhidrosis
--- OUTSIDE RECORDS SUMMARY | 2025-02-19 09:18 | XMS_ITS | Patient Health Record ---
Author Organization [facility] Address [address] [place] [address] Care Team Providers Care Nitrogen Operator Name Role Phone Tobin GARCIA, Aimee Haines Primary Care Provider Un available Black, Mary Unavailable [phone] Allergies Allergen (clinical drug ingredient) Drug/Non Drug [...] Insured Coverage Start Date Coverage End Date [facility] [address] [place] [address] [id number] 01 Petra Rodriguez Self - patient is the insured Medical (General) History Medical History History ICD Code chicken pox Surgical History Surgery Date(Month/Year) bunionectomy , tonsillectomy
== END 2025-02-19 15:18 | disposition home or self-care (01) ==
LOC: HO.HMCC 09:09
PROVIDERS: PCP Internal Medicine; Visit Provider Internal Medicine
DX: E11.65 Type 2 diabetes mellitus with hyperglycemia (principal); E78.2 Mixed hyperlipidemia; R61 Generalized hyperhidrosis

== ENCOUNTER 2025-02-24 08:32 | Outpatient (AMB) | payer OTHER, SELFPAY ==
--- OUTSIDE RECORDS SUMMARY | 2025-02-24 08:55 | XMS_ITS | Patient Health Record ---
Author Organization [facility] Address [address] [place] [address] Care Team Providers Care Engine Service Repairer Name Role Phone Tobin GARCIA, Aimee Haines Primary Care Provider Un available Black, Mary Unavailable [phone] Allergies Allergen (clinical drug ingredient) Drug/Non Drug [...] Insured Coverage Start Date Coverage End Date [facility] [address] [place] [address] [id number] Petra Rodriguez Self - patient is the insured Medical (General) History Medical History History ICD Code chicken pox Surgical History Surgery Date(Month/Year) bunionectomy , tonsillectomy
== END 2025-02-24 08:34 | disposition home or self-care (01) ==
LOC: HO.HMGAL 08:32
PROVIDERS: PCP Internal Medicine; Visit Provider Registered Nurse Emergency
DX: J30.89 Other allergic rhinitis (principal)
CPT/HCPCS: 95117; 95165

== ENCOUNTER 2025-05-05 08:31 | Outpatient (AMB) | payer OTHER, SELFPAY ==
--- OUTSIDE RECORDS SUMMARY | 2025-05-05 08:42 | XMS_ITS | Patient Health Record ---
Author Organization [facility] Address [address] [place] [address] Care Team Providers Care Licensed Mortician Name Role Phone Tobin GARCIA, Aimee Haines Primary Care Provider Un available Black, Mary Unavailable [phone] Allergies Allergen (clinical drug ingredient) Drug/Non Drug [...] Insured Coverage Start Date Coverage End Date [facility] [address] [place] [address] [id number] Petra Rodriguez Self - patient is the insured Medical (General) History Medical History History ICD Code chicken pox Surgical History Surgery Date(Month/Year) bunionectomy , tonsillectomy
== END 2025-05-05 08:33 | disposition home or self-care (01) ==
LOC: HO.HMGAL 08:31
PROVIDERS: PCP Internal Medicine; Visit Provider Registered Nurse Emergency
DX: J30.89 Other allergic rhinitis (principal)
CPT/HCPCS: 95117; 95165

== ENCOUNTER 2025-05-12 07:52 | Outpatient (REF) | payer OTHER, SELFPAY ==
--- OUTSIDE RECORDS SUMMARY | 2025-05-12 07:54 | XMS_ITS | Patient Health Record ---
Author Organization [facility] Address [address] [place] [address] Care Team Providers Care Truck Spotter Name Role Phone Tobin GARCIA, Aimee Haines Primary Care Provider Un available Black, Mary Unavailable [phone] Allergies Allergen (clinical drug ingredient) Drug/Non Drug [...] Insured Coverage Start Date Coverage End Date [facility] [address] [place] [address] [id number] Petra Rodriguez Self - patient is the insured Medical (General) History Medical History History ICD Code chicken pox Surgical History Surgery Date(Month/Year) bunionectomy , tonsillectomy
[2025-05-12 11:50] LABS: Alanine Aminotransferase 58 U/L (0-31); Albumin Level 4.5 g/dL (3.5-5.0); Alkaline Phosphatase 96 U/L (39-117); Anion Gap 16 (12-20); Aspartate Amino Transferase 58 U/L (5-31); Blood Urea Nitrogen 14 mg/dL (9-16); Calcium 9.4 mg/dL (8.4-10.2); Carbon Dioxide 22 mmol/L (22-29); Chloride 104 mmol/L (96-108); Cholesterol 181 mg/dL (<200); Estimated Glomerular Filt Rate > 60; HDL Cholesterol 29 mg/dL (>40); Potassium 3.6 mmol/L (3.3-5.1); Sodium 138 mmol/L (135-145); Total Protein 7.6 g/dL (6.5-8.0); Triglycerides 181 mg/dL (<150)
[2025-05-12 11:54] LABS: Microalbum/Creatinine Ratio Ur 12.7 ug/mg cr (<30)
== END 2025-05-12 07:53 | disposition home or self-care (01) ==
LOC: HO.HMGCLDS 07:52
PROVIDERS: PCP Internal Medicine; Visit Provider Internal Medicine
DX: E11.65 Type 2 diabetes mellitus with hyperglycemia (principal); E78.2 Mixed hyperlipidemia; K31.84 Gastroparesis; E66.9 Obesity, unspecified; Z86.39 Personal history of other endocrine, nutritional and metabolic disease
CPT/HCPCS: 36415; 80053; 80061; 82043; 82306; 82570; 83036

== ENCOUNTER 2025-05-13 08:48 | Outpatient (AMB) | payer OTHER, SELFPAY ==
--- NOTE | 2025-05-13 09:12 | MHC.PC.OV ---
Vital Signs 05/13/25 09:15 Height 5 ft 5 in Weight 184 lb BMI 30.6 BP 120/82 Blood Pressure Location Rt brachial Position Sitting Respiration 15 Pulse 99 Pulse Source Pulse Oximeter Temp 98.3 F Temp Source Oral Pulse Oximetry (%) 96 Oxygen Delivery Method Room Air Intake Visit Reasons: PE Sugarcane Research Technician Required: No Allergies penicillin V Allergy (Unknown, Verified 05/13/25 09:36) hives Medication List - Last Reconciled 05/13/25 by Aimee Rudd MD alprazolam 0.5 mg PO BID PRN aluminum chloride 20% (Drysol) 1 appl topical 2XW PRN amitriptyline 50 mg PO BEDTIME 90 days blood sugar diagnostic (FreeStyle Lite Strips) Check fasting blood sugar once a day before meal blood-glucose meter (FreeStyle Lite Meter kit) Check fasting blood sugar once a day before meal duloxetine 120 mg PO DAILY flash glucose scanning reader (FreeStyle Leticia 2 [place]) As directed flash glucose sensor (FreeStyle Leticia 2 Sensor kit) Use to test blood sugar 4 times per day lancets (Accu-Chek Softclix Lancets) As directed metformin ER 750 mg PO DAILY rosuvastatin 10 mg PO DAILY zolpidem 10 mg PO BEDTIME PRN Tobacco use date assessed: 05/13/25 Dental Screening Dental Screen Date: 05/13/25 Did you have a dental visit in the last 12 months?: Yes Did you have a dental problem in the last 6 months where you did not have access to dental care?: Yes Was dental information given to patient?: Patient has dentist HPI PE HPI Details 49-year-old lady with past medical history of diabetes mellitus, dyslipidemia, primary osteoarthritis of right hip chronic insomnia here today for her physical exam. Up-to-date with her screening mammogram, due again this May 2025. Up-to-date with her cervical cancer screening, done last year with negative findings, done at [facility] Up-to-date with her screening colonoscopy done by Dr. Rivas with a benign polyp removed, repeat due again in 2033 Latest fasting labs however showed her hemoglobin A1c higher at 10.2% with triglycerides normal but LDL cholesterol elevated at 116 mg/dL. Has not been very compliant with diet, nor has she been getting any regular exercise due to hip pain. Currently on metformin ER 750 mg 1 tablet once a day and admits to sometimes not taking the medication. Up-to-date with her diabetes retinopathy screening, [facility], due again for a repeat screening this May 2025. Continues to smoke cigarettes, not ready to quit yet [facility] Medical History (Updated 05/13/25 @ 10:10 by Aimee Rudd MD) Vitamin D deficiency Hyperhidrosis Gastroparesis Obesity Diabetes mellitus with hyperglycemia, without long-term current use of insulin Type 2 diabetes mellitus without complication, without long-term current use of insulin Lateral pain of right hip Positive colorectal cancer screening using Cologuard test Diabetes mellitus with hyperglycemia History of vitamin D deficiency Breast calcification, left Chronic insomnia Mixed dyslipidemia Surgical History History of esophagogastroduodenoscopy (EGD) H/O colonoscopy Hx of tonsillectomy History of bunionectomy Family History Father Mental health disorder Cancer Social History Household Members: None Housing: Apartment Alcohol intake: current Alcohol intake frequency: holidays/special occasions only Patient Tobacco Use Status: Current everyday Tobacco user Cigarette Packs Per Day: 0.5 Cigarettes Per Day: 10 Years Smoked: 30 +/- e-Cigarette/Vaping Use: Never Used service: No Current occupational status: employed 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 1. Little interest or pleasure in doing things: not at all 2. Feeling down, depressed, or hopeless: not at all 3. Trouble falling or staying asleep, or sleeping too much: not at all 4. Feeling tired or having little energy: not at all 5. Poor appetite or overeating: not at all 6. Feeling bad about yourself - or that you are a failure or have let yourself or your family down: not at all 7. Trouble concentrating on things, such as reading the newspaper or watching television: not at all 8. Moving or speaking so slowly that other people could have noticed. Or the opposite - being so fidgety or restless that you have been moving around a lot more than usual: not at all 9. Thoughts that you would be better off or of hurting yourself in some way: not at all Total score: 0 Depression Screening Interpretation: Negative Depression Screening Done: Yes Source: Developed by Drs. Oscar Parrish, Ivis Redd, Francisco J Stuart and colleagues, with an educational kira from [employer]. Thrive Questionnaire Date Thrive assessed: 08/04/24 I am a: Patient What is your living situation today?: I choose not to answer this question Within the past 12 months, did the food you bought not last and you didn't have the money to get more?: I choose not to answer this question Within the past 12 months, did you worry whether your food would run out before you got money to buy more?: I choose not to answer this question Do you have trouble paying for medicines?: I choose not to answer this question Do you have trouble getting transportation to medical appointments?: I choose not to answer this question Do you have trouble paying your heating and electricity bill?: I choose not to answer this question Do you have trouble taking care of your child, family member or friend?: I choose not to answer this question Do you have trouble with day-to-day activities such as bathing, preparing meals, shopping, managing finances, etc.?: I choose not to answer this question Are you currently unemployed and looking for a job?: I choose not to answer this question Are you interested in more education?: I choose not to answer this question Please select the resources that you would like help with: None Currently or been in a relationship where the following occur: I choose not to answer THRIVE Score: 0 AUDIT C Alcohol Use Questionnaire (AUDIT-C) 1. How often do you have a drink containing alcohol?: Never 3. How often do you have six or more drinks on one occasion?: Never Total Score: 0 ANANTH-7 AMB Questionnaire ANANTH-7 Date ANANTH - 7 assessed: 08/04/24 Feeling nervous, anxious, or on edge: 0 = Not at all Not being able to stop or control worryin = Not at all Worrying too much about different things: 0 = Not at all Trouble relaxin = Not at all Being so restless that it is hard to sit still: 0 = Not at all Becoming easily annoyed or irritable: 0 = Not at all Feeling afraid as if something awful might happen: 0 = Not at all Total ANANTH-7 score (0-4 normal; 5-9 mild; 10-14 moderate; 15-21 severe): 0 Source: Developed by Drs. Oscar Parrish, Ivis Redd, Francisco J Stuart and colleagues, with an educational kira from [employer]. Review of Systems Const Reports no additional complaints Eyes Details: Seen at [facility], scheduled appointment now to see [facility] later this year Reports requires corrective lenses ENT Reports no additional complaints Card Denies chest pain, Denies irregular heart rhythm, Denies lightheadedness and Denies dyspnea on exertion Resp Denies dyspnea on exertion GI Reports as per HPI Reports no additional complaints Musc Reports as per HPI Skin/Breast Reports as per HPI Neuro Reports no additional complaints Psych Reports no additional complaints Endo Reports no additional complaints Andre/Lymph Reports no additional complaints Aller/Immun Reports no additional complaints Physical exam (Primary Care) Vital Signs: Last Vital Signs Temp 98.3 F 05/13/25 09:15 Pulse 99 05/13/25 09:15 Resp 15 05/13/25 09:15 BP 120/82 05/13/25 09:15 Pulse Ox 96 05/13/25 09:15 Oxygen Delivery Method Room Air 05/13/25 09:15 BMI result Body Mass Index 30.6 BMI Assessment/Plan discussion: High BMI High, discussed plan: lifestyle, weight reduction, dietary and physical activity Tobacco/Smoking Status: Tobacco use Status Tobacco use date assessed 05/13/25 05/13/25 09:19 Patient Tobacco Use Status Current everyday Tobacco 05/13/25 09:13 e-Cigarette/Vaping Use Never Used 05/13/25 09:13 Are you ready to quit: No Tobacco cessation counseling provided: Yes PHQ-9: PHQ-9 Score PHQ-9: Total score 0 05/13/25 09:46 Depression Screening Interpretation: Negative Thrive Assessment: Date of Thrive Assessment Date Thrive assessed 08/04/24 05/13/25 09:13 Currently or been in a relationship where the following occur: I choose not to answer Const Other: Alert oriented x3 no acute cardiorespiratory distress noted ambulatory with normal gait Nutritional Appearance: obese HENMT Other: Normocephalic atraumatic, Ears: external ears normal Face and sinus: Yes face symmetric Mouth: Normal oral and palatal mucosa present and moist mucous membranes Eyes General: appearance normal, both eyes and all related structures Neck Other: Supple, no lymphadenopathy per, thyroid gland nonpalpable Chest Other: Up-to-date with her mammogram Resp Auscultation: clear to auscultation bilaterally Cardio Other: S1-S2 present regular rate and rhythm GI Other: Normal bowel sounds, soft, nontender, no mass palpated Other: Sees [facility] for routine Pap and pelvic exam , currently up-to-date Back/Spine/Pelvis Back: No back tenderness Skin General skin exam: no rashes or lesions noted Neuro General: gait normal, tone normal, moves all extremities, Normal light touch and pain sensation, no focal motor deficits and CN's II-XI intact bilaterally Extrem General: Yes full ROM, Yes no joint enlargement, Yes no pedal edema, Yes no calf tenderness and Yes normal gait Psych Appearance: grossly normal and well kempt Mental Status: mental status grossly normal Speech and movement: Normal speech and movement present Affect: normal affect Results Reviewed Results Reviewed: Name: Petra Rodriguez Age/Sex: 49/F : 1975 Unit#: [id number] Attend Dr: Aimee Rudd MD Re05/12/25 Status: DEP REF Location: [facility] Disch: SPEC : [id number] [place]: 05/12/25 STATUS: COMP REQ : [id number] RECD: 05/12/[address]: Aimee Rudd MD COMP: 05/12/25 ENTERED: 05/12/[address]: ORDERED: CMP Fast, Lipid Panel, Vitamin D 25-OH Test Result Flag Reference Sodium 138 135-145 mmol/L Potassium 3.6 3.3-5.1 mmol/L CL 104 96-108 mmol/L CO2 22 22-29 mmol/L Gap 16 12-20 BUN 14 9-16 mg/dL Creat 0.69 0.5-1.4 mg/dL eGFR > 60 Chronic Kidney Disease: Estimated GFR < 60 mL/min/1.73m2 Severe Kidney Disease: Estimated GFR < 15 mL/min/1.73m2 FBS 235 H 60-99 mg/dL A fasting glucose of 126 mg/dl or greater on more than one occasion is considered diagnostic of diabetes. CA 9.4 8.4-10.2 mg/dL Total Bili 0.4 0.0-1.0 mg/dL AST (GOT) 58 H 5-31 U/L ALT (GPT) 58 H 0-31 U/L Protein, Total 7.6 6.5-8.0 g/dL Alb 4.5 3.5-5.0 g/dL Triglyceride 181 H <150 mg/dL Desirable Triglyceride: less than 150 mg/dL Borderline High Triglyceride 150-199 mg/dL High Triglyceride: 200-499 mg/dL Very High Triglyceride: greater than or equal to 5OO mg/dL Cholesterol 181 <200 mg/dL Desirable Cholesterol: less than 200 mg/dL Borderline High Cholesterol: 200-239 mg/dL High Cholesterol: greater than 239 mg/dL LDL Calculated 116 H <100 mg/dL Desirable LDL: less than 100 mg/dL Near Optimal/Above Optimal LDL: 110-129 mg/dL Borderline High LDL: 130-159 mg/dL High LDL: 160-189 mg/dL Very High LDL: greater than or equal to 190 mg/dL HDL 29 L >40 mg/dL Desirable HDL: greater than 40 mg/dL Note: This HDL assay may give artificially low results in patients with liver disease. Alk Phos 96 39-117 U/L Vitamin D 25-OH 19.7 L >30 ng/mL Health Based Reference Values* < 20 ng/mL Deficient 20-30 ng/mL Insufficient > 30 ng/mL Sufficient Laboratory Tests 05/12/25 05/12/25 07:55 08:05 Estimat Average Glucose 246 Hemoglobin A1c % 10.2 H Urine Creatinine 110.09 Urine Microalbumin 14.0 Microalb/Creat Ratio 12.7 Coding Level of Care Code Est Pt Prev Care 40-64y(02770) Diagnoses Annual visit for general adult medical examination with abnormal findings Z00.01 Mixed dyslipidemia E78.2 Diabetes mellitus with hyperglycemia, without long-term current use of insulin E11.65 Obesity E66.9 Vitamin D deficiency E55.9 Assessment & Plan Assessment & Plan (1) Annual visit for general adult medical examination with abnormal findings: Code(s): Z00.01 - Encounter for general adult medical examination with abnormal findings Plan: Fasting lab results reviewed with patient.. Recommended dental visit every 6 months and yearly diabetes eye screening which is currently up-to-date. Take adequate calcium in diet and vitamin-D 3 at 2000 IU per cap once a day, in addition to weight-bearing exercises to help maintain good muscle tone and weight control. Up-to-date with her breast cancer screening, colon cancer screening and cervical cancer screening. Declined recommended flu vaccine and COVID booster, up-to-date with pneumococcal vaccine (2) Mixed dyslipidemia: Code(s): E78.2 - Mixed hyperlipidemia Category: Medical Plan: Recent fasting labs showed LDL cholesterol not at goal and elevated triglycerides. Will continue on rosuvastatin 10 mg daily, and emphasized importance of adherence to recommended diabetic diet and getting regular exercise. Will repeat another fasting lipid panel in 3 months. Up-to-date with her pneumonia vaccine but does not want to get a flu shot or the COVID vaccine booster (3) Diabetes mellitus with hyperglycemia, without long-term current use of insulin: Code(s): E11.65 - Type 2 diabetes mellitus with hyperglycemia Category: Medical Plan: Food control of diabetes with hemoglobin A1c at 10.2% with positive microalbuminuria . Increased metformin ER to 750 mg taken 1 tablet twice a day with meals. Stressed importance of adherence to diet and exercise, reminded that she is due diabetic retinopathy screening for this year , schedule an appointment for follow-up in 3 months (4) Obesity: Code(s): E66.9 - Obesity, unspecified Category: Medical Plan: Stressed importance of adhering to diet recommended and getting regular exercise. (5) Vitamin D deficiency: Code(s): E55.9 - Vitamin D deficiency, unspecified Category: Medical Plan: Continue vitamin D3 supplement 42259 units per capsule taken once a week to complete 3 months, once finished taking prescription, advised to continue taking vitamin-D 3 [id number] 2000 units daily Orders: Orders Lipid Panel 3 Months E78.2 - Mixed hyperlipidemia, E11.65 - Type 2 diabetes mellitus with hyperglycemia, E66.9 - Obesity, unspecified Hemoglobin A1c 3 Months E78.2 - Mixed hyperlipidemia, E11.65 - Type 2 diabetes mellitus with hyperglycemia, E66.9 - Obesity, unspecified Basic Metabolic Panel Fasting 3 Months E78.2 - Mixed hyperlipidemia, E11.65 - Type 2 diabetes mellitus with hyperglycemia, E66.9 - Obesity, unspecified Aspartate Amino Transferase 3 Months E78.2 - Mixed hyperlipidemia, E11.65 - Type 2 diabetes mellitus with hyperglycemia, E66.9 - Obesity, unspecified Alanine Aminotransferase 3 Months E78.2 - Mixed hyperlipidemia, E11.65 - Type 2 diabetes mellitus with hyperglycemia, E66.9 - Obesity, unspecified Microalbumin, Random (w Creat) 3 Months E78.2 - Mixed hyperlipidemia, E11.65 - Type 2 diabetes mellitus with hyperglycemia, E66.9 - Obesity, unspecified Vitamin D 25-OH Total 3 Months E78.2 - Mixed hyperlipidemia, E11.65 - Type 2 diabetes mellitus with hyperglycemia, E66.9 - Obesity, unspecified Medications: New cholecalciferol (vitamin D3) 1,250 mcg PO QWEEK 13 caps 0RF 3 months E55.9 - Vitamin D deficiency, unspecified Changed From metformin ER 750 mg PO DAILY 90 tabs 1RF E11.65 - Type 2 diabetes mellitus with hyperglycemia To metformin ER 750 mg PO BID 180 tabs 1RF 3 months NS E11.65 - Type 2 diabetes mellitus with hyperglycemia
[2025-05-13 09:15] VITALS: BP 120/82; PULSE 99; RESP 15; TEMP 36.8; O2SAT 96; BMI 30.6
--- OUTSIDE RECORDS SUMMARY | 2025-05-13 09:15 | XMS_ITS | Patient Health Record ---
Author Organization [facility] Address [address] [place] [address] Care Team Providers Care Lab Support Service Tech Name Role Phone Tobin GARCIA, Aimee Haines Primary Care Provider Un available Black, Mary Unavailable [phone] Allergies Allergen (clinical drug ingredient) Drug/Non Drug [...] Insured Coverage Start Date Coverage End Date [facility] [address] [place] [address] [id number] Petra Rodriguez Self - patient is the insured Medical (General) History Medical History History ICD Code chicken pox Surgical History Surgery Date(Month/Year) bunionectomy , tonsillectomy
== END 2025-05-13 10:07 | disposition home or self-care (01) ==
LOC: HO.HMCC 08:49
PROVIDERS: PCP Internal Medicine; Visit Provider Internal Medicine
DX: Z00.01 Encounter for general adult medical examination with abnormal findings (principal); E11.65 Type 2 diabetes mellitus with hyperglycemia; E66.9 Obesity, unspecified; Z68.30 Body mass index [BMI] 30.0-30.9, adult; E78.2 Mixed hyperlipidemia; E55.9 Vitamin D deficiency, unspecified

== ENCOUNTER 2025-05-20 09:06 | Outpatient (AMB) | payer OTHER, SELFPAY ==
--- NOTE | 2025-05-20 09:12 | A.OFFVIS_ITS ---
Intake Visit Reasons: OV - Right Hip OA Intake Note: Petra is a 49 year old female who presents today for a follow up of Right Hip OA. History of PRP that was not helpful. She is trying to avoid surgery, but her symptoms are making this difficult. Today she returns to discuss Right RICKIE. BMI: 30.6 PCP: Tobin Current QD Tobacco Use HX: DM - Metformin & Mounjaro - Last A1C 05/12/25- 10.2% Allergies penicillin V Allergy (Unknown, Verified 05/13/25 09:36) hives HPI HPI OV - Right Hip OA: Details: Petra is a 49 year old female who presents today for a follow up of Right Hip OA. History of PRP that was not helpful. She is trying to avoid surgery, but her symptoms are making this difficult. Today she returns to discuss Right RICKIE. She is inability to engage in meaningful daily activities. She has severe pain. She can not walk. She limps everywhere. The quality of her life is diminished. Unfortunately she has a hemoglobin A1c that is currently over 10 and daily cigarette smoker. I had a long discussion with her regarding these 2 concerns. With respect to her diabetes she has begun to take a GLP 1 and I anticipate, if she is compliant, that this will significantly lower her hemoglobin A1c. In addition she has a cigarette addiction. I discussed this with her. She feels like she can quit 3 months prior to surgery. She has been prescribed Chantix although sure she is taking it. I reassured her that if she has stopped smoking and gets her hemoglobin A1c under 7.5 we will consider surgery. [facility] Medical History (Updated 05/13/25 @ 10:10 by Aimee Rudd MD) Vitamin D deficiency Hyperhidrosis Gastroparesis Obesity Diabetes mellitus with hyperglycemia, without long-term current use of insulin Type 2 diabetes mellitus without complication, without long-term current use of insulin Lateral pain of right hip Positive colorectal cancer screening using Cologuard test Diabetes mellitus with hyperglycemia History of vitamin D deficiency Breast calcification, left Chronic insomnia Mixed dyslipidemia Surgical History History of esophagogastroduodenoscopy (EGD) H/O colonoscopy Hx of tonsillectomy History of bunionectomy Family History Father Mental health disorder Cancer Social History Household Members: None Housing: Apartment Alcohol intake: current Alcohol intake frequency: holidays/special occasions only Patient Tobacco Use Status: Current everyday Tobacco user Cigarette Packs Per Day: 0.5 Cigarettes Per Day: 10 Years Smoked: 30 +/- e-Cigarette/Vaping Use: Never Used service: No Current occupational status: employed 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 She is positive impingement [place] with antalgic gait on the right. 2+ dorsalis pedis pulse. Results Reviewed Results Reviewed: I personally reviewed relevant radiographs. Severe right hip osteoarthritis Assessment & Plan Assessment & Plan (1) Primary osteoarthritis of right hip: Code(s): M16.11 - Unilateral primary osteoarthritis, right hip Category: Medical Plan: This is a 49-year-old with osteoarthritis of the right hip. It is severe and I do recommend arthroplasty. Unfortunately she has diabetes and this is a cigarette smoker. She feels she can quit smoking in her own. We discussed this and she will continue to work with her primary care doc. With respect to her hemoglobin A1c she is starting GLP 1 and I hope this will reduce it further. She understands that when these 2 conditions are met we can proceed forward with plasty. (2) Type 2 diabetes mellitus without complication, without long-term current use of insulin: Code(s): E11.9 - Type 2 diabetes mellitus without complications Category: Medical Plan: (3) Mixed dyslipidemia: Code(s): E78.2 - Mixed hyperlipidemia Category: Medical Plan: Coding Level of Care Code Est Pt Level 4 (14141) Diagnoses Primary osteoarthritis of right hip M16.11 Type 2 diabetes mellitus without complication, without long-term current use of insulin E11.9 Mixed dyslipidemia E78.2
--- OUTSIDE RECORDS SUMMARY | 2025-05-20 11:10 | XMS_ITS | Patient Health Record ---
Author Organization [facility] Address [address] [place] [address] Care Team Providers Care Captain Room Service Name Role Phone Tobin GARCIA, Aimee Haines Primary Care Provider Un available Black, Mary Unavailable [phone] Allergies Allergen (clinical drug ingredient) Drug/Non Drug [...] Insured Coverage Start Date Coverage End Date [facility] [address] [place] [address] [id number] Petra Rodriguez Self - patient is the insured Medical (General) History Medical History History ICD Code chicken pox Surgical History Surgery Date(Month/Year) bunionectomy , tonsillectomy
== END 2025-05-20 09:43 | disposition home or self-care (01) ==
LOC: HO.HOS 09:07
PROVIDERS: PCP Internal Medicine; Visit Provider Orthopaedic Surgery
DX: M16.11 Unilateral primary osteoarthritis, right hip (principal); E11.9 Type 2 diabetes mellitus without complications; E78.2 Mixed hyperlipidemia
CPT/HCPCS: 99214

== ENCOUNTER 2025-06-12 08:57 | Outpatient (REF) | payer OTHER, SELFPAY ==
--- OUTSIDE RECORDS SUMMARY | 2025-06-12 09:01 | XMS_ITS | Patient Health Record ---
Author Organization [facility] Address [address] [place] [address] Care Team Providers Care Promotion Manager Name Role Phone Tobin GARCIA, Aimee Haines Primary Care Provider Un available Black, Mary Unavailable [phone] Allergies Allergen (clinical drug ingredient) Drug/Non Drug [...] Insured Coverage Start Date Coverage End Date [facility] [address] [place] [address] [id number] Petra Rodriguez Self - patient is the insured Medical (General) History Medical History History ICD Code chicken pox Surgical History Surgery Date(Month/Year) bunionectomy , tonsillectomy
== END 2025-06-12 08:58 | disposition home or self-care (01) ==
LOC: HO.MAMMO 08:57
PROVIDERS: PCP Internal Medicine; Visit Provider Internal Medicine
DX: Z12.31 Encounter for screening mammogram for malignant neoplasm of breast (principal)
CPT/HCPCS: 77063; 77067

== ENCOUNTER → 2025-06-12 09:00 | Outpatient (BNV) | payer OTHER, SELFPAY | PROVIDERS: PCP Internal Medicine; Visit Provider Internal Medicine | DX: Z12.31 Encounter for screening mammogram for malignant neoplasm of breast (principal) | CPT/HCPCS: 77063; 77067 ==